=== PATIENT | male | born 1965 | race Caucasian/White ===

== ENCOUNTER 2017-01-18 04:38 | Observation (INO) ==
[2017-01-18] MEDS ORDERED: 0.9 % Sodium Chloride 1,000 ML IVC ONE (04:53)
--- NOTE | 2017-01-18 04:58 | Emergency Department Note ---
Disposition Clinical Impression: Acute electrocardiogram changes, Hyperglycemia Episode of syncope Qualifiers: Syncope type: unspecified Qualified Code(s): R55 - Syncope and collapse Disposition: Admitted As Inpatient Condition: Good Referrals: Eric Castillo MD [Primary Care Provider] - Forms: ED Satisfaction Letter Syncope HPI - General Chief Complaint: ED Syncope Stated Complaint: syncope Time Seen by Provider: 01/18/17 04:42 Source: patient, EMS Mode of arrival: EMS Limitations: no limitations Nursing Notes Reviewed: Yes Vital Signs Reviewed: Yes - History of Present Illness HPI Narrative: 51-year-old male history of diabetes, hypertension, prior history of syncopal episodes who presents to the ER via EMS due to syncopal episode. Patient states around 3:30 this morning he got up to go to the kitchen to get something to drink. He states he has been vomiting for several days. He states that he was walking to the kitchen that he just blacked out and woke up on the floor. He denies any prodromal symptoms. Patient woke up and called EMS. Currently complaining of pain at the base of his skull and upper neck. No chest pain or shortness of breath. States he has had workups in the past from cardiology and neurology. No antiplatelet or anticoagulation medications. No other concerns. 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 Duration: other Prodromal Symptoms: none Witnessed: no Context: during exertion Injuries Sustained Associated with Event: neck Current Symptoms: other History: previous syncopal episode Treatments prior to arrival: none Associated trauma secondary to event: No - Related Data Home Medications Medication Instructions Recorded Confirmed Atorvastatin Calcium [Lipitor] 80 mg PO DAILY 12/18/15 03/29/16 FLUoxetine HCl [Prozac] 80 mg PO QAM 12/18/15 03/29/16 Famotidine [Pepcid] 40 mg PO HS 12/18/15 03/29/16 Ferrous Sulfate 325 mg PO BIDWM 12/18/15 03/29/16 Gabapentin [Neurontin] 200 mg PO BID 12/18/15 03/29/16 Imipramine HCl [Tofranil] 50 mg PO HS 12/18/15 03/29/16 Insulin ASPART [Novolog Flexpen] 0 unit SQ ACHS 12/18/15 03/29/16 LORazepam [Ativan] 0.5 mg PO HS 12/18/15 03/29/16 Linaclotide [Linzess] 290 mcg PO DAILY PRN 12/18/15 03/29/16 Liraglutide [Victoza 2-Norman] 0 mg SQ QAM 12/18/15 03/29/16 Lisinopril [Zestril] 20 mg PO BID 12/18/15 03/29/16 Meclizine HCl [Verticalm] 25 mg PO DAILY 12/18/15 03/29/16 Metformin HCl [Glucophage] 1,000 mg PO QPM 12/18/15 03/29/16 Metoprolol [Lopressor] 12.5 mg PO BID 12/18/15 03/29/16 Nitroglycerin [Nitrostat] 0.4 mg SL AD PRN 12/18/15 03/29/16 [place]-3 Acid Ethyl Esters [Lovaza] 1 gm PO BID 12/18/15 03/29/16 Onabotulinumtoxina [Botox] 200 unit IM [id number] 12/18/15 03/29/16 Pantoprazole Sodium [Protonix] 40 mg PO BID 12/18/15 03/29/16 Potassium Chloride [K-Tab ER] 10 meq PO DAILY 12/18/15 03/29/16 Primidone [Mysoline] 50 mg PO HS 12/18/15 03/29/16 SUMAtriptan Succinate [Imitrex] 100 mg PO AD PRN 12/18/15 03/29/16 Sitagliptin Phos/Metformin HCl 1 each PO DAILY 12/18/15 03/29/16 [Janumet Xr 100-1,000 mg Tablet] Tamsulosin [Flomax] 0.4 mg PO HS 12/18/15 03/29/16 Topiramate [Topamax] 300 mg PO BID 12/18/15 03/29/16 Ziprasidone HCl [Geodon] 120 mg PO HS 12/18/15 03/29/16 amLODIPine [Norvasc] 5 mg PO DAILY 12/18/15 03/29/16 cloNIDine HCl [CloNIDine HCl] 0.1 mg PO HS 12/18/15 03/29/16 Carbidopa/Levodopa 25 [Sinemet 1 each PO BID 12/19/15 03/29/16 25] Divalproex (12 HR) [Depakote (12 1,000 mg PO BID 12/19/15 03/29/16 HR)] Fenofibrate [Lofibra] 160 mg PO DAILY 12/19/15 03/29/16 Allergies Allergy/AdvReac Type Severity Reaction Status Date / Time acetaminophen [From Percocet] AdvReac See Verified 01/14/17 09:05 Comments Influenza Virus Vaccines AdvReac Hives Verified 01/14/17 09:05 Oxycodone [From Percocet] AdvReac See Verified 01/14/17 09:05 Comments Pneumococcal Vaccine AdvReac Hives Verified 01/14/17 09:05 Zolpidem [From Ambien] AdvReac See Verified 01/14/17 09:05 Comments All systems ED: reviewed and negative except as stated. Constitutional: Denies: fever Cardiovascular: Denies: chest pain Respiratory: Denies: dyspnea Gastrointestinal: Denies: abdominal pain Musculoskeletal: Reports: neck pain Neurological: Denies: headache, numbness, paresthesias Past Medical History - Past Medical History Attestation: Yes The following information was validated with the patient. Source: patient Medical history: Reports: arthritis, asthma, diabetes, GERD, hyperlipidemia, hypertension, renal disease, seizures, thyroid disease, other Surgical history: Reports: orthopedic, other, other Psychiatric history: Reports: depression - Social History Smoking Status: Former smoker Smokeless Tobacco Status: No Alcohol use: Reports: none Drug use: Reports: none Physical Exam - General Limitations: no limitations General appearance: alert, in no apparent distress - Head Head exam: atraumatic, normocephalic, normal inspection - Eye Eye exam: Present: normal appearance, PERRL, EOMI - ENT ENT exam: normal exam, normal oropharynx - Neck Neck exam: Present: normal inspection, tenderness (Patient has tenderness to palpation of the upper cervical spine over the spinous processes. Patient is currently in C-spine immobilization. ) - Chest Chest inspection: Present: normal inspection, symmetric chest wall rise - Respiratory Respiratory exam: Present: normal lung sounds bilaterally - Cardiovascular Cardiovascular exam: Present: regular rate, normal rhythm, normal heart sounds - Abdominal Exam Abdominal exam: Present: soft, Non-Tender. Absent: tenderness - Extremities Exam Extremities exam: Present: normal inspection, full ROM - Expanded Upper Extremity Exam Shoulder exam: Present: normal inspection, full ROM Arm exam: Present: normal inspection, full ROM Elbow exam: Present: normal inspection, full ROM Forearm/Wrist exam: Present: normal inspection, full ROM Hand exam: Present: normal inspection, full ROM Vascular exam: Normal: radial pulse - Expanded Lower Extremity Exam Hip/Pelvis exam: Present: normal inspection, full ROM Upper leg exam: Present: normal inspection, full ROM Knee exam: Present: normal inspection, full ROM Lower leg exam: Present: normal inspection, full ROM Ankle exam: Present: normal inspection, full ROM Foot/toe exam: Present: normal inspection, full ROM Neurovascular/Tendon exam: Absent: motor deficit, sensory deficit - Neurological Exam Neurological exam: Present: alert, CN II-XII intact. Absent: motor sensory deficit - Expanded Neurological Exam Speech: Present: fluid speech Cranial nerves: EOM function (II, III, IV, ): Normal, facial sensation (V): Normal, spinal accessory function (XI): Normal, tongue deviation (XII): Normal Motor strength - LUE: 5/5 Motor strength - RUE: 5/5 Motor strength - LLE: 5/5 Motor strength - RLE: 5/5 Sensory exam upper extremity: light touch: Normal Sensory exam lower extremity: light touch: Normal Coma Scale Eye Opening: Spontaneous Coma Scale Motor Response: Obeys Commands Coma Scale Verbal Response: Oriented Coma Scale Total: 15 - Psychiatric Psychiatric exam: Present: normal affect, normal mood - Skin Skin exam: Present: warm, dry, intact, normal color Course Course Narrative: Patient seen and examined. Placed in C-spine immobilization. His EKG demonstrates T-wave inversions that are new from his prior EKG. We will obtain a chest x-ray as well as CT scan of the head and cervical spine was labs including troponin. Patient will require admission for syncopal episode in the setting of EKG findings. - Reevaluation(s) Reevaluation #1: Discussed results of imaging labwork with the patient. I discussed the EKG findings with him. We will admit him to the hospitalist service for evaluation. Vital Signs Temperature 97.6 F 01/18/17 04:40 Pulse Rate 90 01/18/17 04:40 Respiratory Rate 18 01/18/17 04:40 Blood Pressure 101/71 01/18/17 04:40 O2 Sat by Pulse Oximetry 99 01/18/17 04:40 Temperature 97.6 F 01/18/17 04:40 Pulse Rate 90 01/18/17 04:40 Respiratory Rate 18 01/18/17 04:40 Blood Pressure 101/71 01/18/17 04:40 O2 Sat by Pulse Oximetry 100 01/18/17 04:47 Oxygen Delivery Oxygen Delivery Room Air Syncope - MDM Narrative Medical decision making narrative: 51-year-old male presents to the ER due to syncopal episode. Happened around 3: 30 this morning. Reports that he just "blacked out" while walking to the kitchen. Prior history of syncopal episodes without etiology. Complaining of neck pain here. His EKG does demonstrate new findings from his prior 3 days ago. First troponin negative. C-spine is cleared. Patient admitted to the hospital service for syncope and EKG changes. - Lab Data Lab results reviewed: Yes I reviewed the patient's lab results. Result diagrams: 01/18/17 05:00 01/18/17 05:00 Lab Results 01/18/17 01/18/17 01/18/17 Range/Units 05:00 05:00 05:00 WBC 3.7 L (4.3-11.1) K/mcL RBC 4.72 (4.19-5.50) M/mcL Hgb 12.4 L (12.9-16.9) g/dL Hct 38.6 (37.5-50.1) % MCV 81.8 L (83.0-100.0) fL MCH 26.3 L (28.0-33.3) pg MCHC 32.1 (31.6-35.5) g/dL RDW 13.5 (11.5-14.5) % Plt Count 238 (140-400) K/mcL MPV 10.8 (9.4-12.4) fL Immature Gran % 0.5 (0-4) % Seg Neutrophils % 46.3 % Lymphocytes % 42.0 % Monocytes % 7.5 % Eosinophils % 3.2 % Basophils % 0.5 % Neutrophils # 1.7 (1.6-8.9) K/mcL Lymphocytes # 1.6 (0.6-4.6) K/mcL Monocytes # 0.3 (0.0-1.3) K/mcL Eosinophils # 0.1 (0.0-0.6) K/mcL Basophils # 0.0 (0.0-0.2) K/mcL PT 9.8 (9.4-12.1) Seconds INR 0.9 APTT 28.7 (26.0-36.0) Seconds Sodium (136-145) mEq/L Potassium (3.5-4.5) mEq/L Chloride (98-109) mEq/L Carbon Dioxide (19-29) mEq/L BUN (8-26) mg/dL Creatinine (0.72-1.25) mg/dL Est GFR ( Amer) (> 60) Est GFR (Non-Af Amer) (> 60) BUN/Creatinine Ratio (6-26) Glucose (70-99) mg/dL POC Glucose (58-89) Calculated Osmolality (280-300) Calcium (8.6-10.8) mg/dL Total Bilirubin (0.2-1.2) mg/dL Direct Bilirubin (0.0-0.5) mg/dL Indirect Bilirubin (0.0-1.2) mg/dL AST (5-34) Units/L ALT (0-55) Units/L Alkaline Phosphatase (38-126) Units/L Troponin I 0.02 (0-0.03) ng/mL Serum Total Protein (6.0-8.3) g/dL Albumin (3.5-5.0) g/dL Globulin (2.4-3.5) g/dL Albumin/Globulin Ratio (1.1-2.2) Lipase (8-78) Units/L 01/18/17 01/18/17 Range/Units 05:00 05:00 WBC (4.3-11.1) K/mcL RBC (4.19-5.50) M/mcL Hgb (12.9-16.9) g/dL Hct (37.5-50.1) % MCV (83.0-100.0) fL MCH (28.0-33.3) pg MCHC (31.6-35.5) g/dL RDW (11.5-14.5) % Plt Count (140-400) K/mcL MPV (9.4-12.4) fL Immature Gran % (0-4) % Seg Neutrophils % % Lymphocytes % % Monocytes % % Eosinophils % % Basophils % % Neutrophils # (1.6-8.9) K/mcL Lymphocytes # (0.6-4.6) K/mcL Monocytes # (0.0-1.3) K/mcL Eosinophils # (0.0-0.6) K/mcL Basophils # (0.0-0.2) K/mcL PT (9.4-12.1) Seconds INR APTT (26.0-36.0) Seconds Sodium 132 L (136-145) mEq/L Potassium 4.0 (3.5-4.5) mEq/L Chloride 98 (98-109) mEq/L Carbon Dioxide 20 (19-29) mEq/L BUN 16 (8-26) mg/dL Creatinine 1.45 H (0.72-1.25) mg/dL Est GFR ( Amer) > 60 (> 60) Est GFR (Non-Af Amer) 52 L (> 60) BUN/Creatinine Ratio 11 (6-26) Glucose 403 H (70-99) mg/dL POC Glucose 397 H (58-89) Calculated Osmolality 292 (280-300) Calcium 9.8 (8.6-10.8) mg/dL Total Bilirubin 0.3 (0.2-1.2) mg/dL Direct Bilirubin 0.1 (0.0-0.5) mg/dL Indirect Bilirubin 0.2 (0.0-1.2) mg/dL AST 7 (5-34) Units/L ALT 12 (0-55) Units/L Alkaline Phosphatase 104 (38-126) Units/L Troponin I (0-0.03) ng/mL Serum Total Protein 7.4 (6.0-8.3) g/dL Albumin 3.7 (3.5-5.0) g/dL Globulin 3.7 H (2.4-3.5) g/dL Albumin/Globulin Ratio 1.0 L (1.1-2.2) Lipase 53 (8-78) Units/L - Radiology Data Radiology results reviewed: Yes I reviewed the patient's radiology results. Chest X-Ray 01/18/17 04:53 IMPRESSION: Stable negative chest. D/ / Elsie Desir MD / Elsie Desir MD Interpreting Provider: Elsie Desir MD Head CT 01/18/17 04:53 IMPRESSION: Stable negative CT brain with no acute intracranial abnormality. D/ / Elsie Desir MD / Elsie Desir MD Interpreting Provider: Elsie Desir MD - EKG Data EKG attestation: Yes I reviewed and interpreted this EKG. EKG results narrative: EKG demonstrates sinus rhythm with a rate of 93 bpm. Normal axis. Normal intervals. Normal R-wave progression. There are T-wave inversions in the lateral leads V3 through V5 that appear new from his prior EKG. No gross ST elevations or depressions. Changes from previous EKG include T-wave inversions compared to 01/14/17. S.B.Elvia - S.Carina Situation: Demographics, MOA Background: Presenting Complaint, Relevant PMH, Meds, & Allergies Assessment: Vital Signs, Course and respsone to treatment, Exam Concerns, Patient/Family Expectation, Pertinant Lab Results, Outstanding Labs Recommendation: Barrier(s) to disposition, Recommendation based on pending studies, treatments, or consults S.B.A.RHarpreet Report Given to: Angélica Cunha Repor Time: 06:10 Attestation Statement - Attestation Attestation: I examined this patient and my medical decision-making was reviewed with the Resident Physician. I agree with the documented findings, disposition and treatment plan as described except to the extent set forth below. A 51-year- old male with concern for syncope. EKG has ischemic changes. Possible cardiac in etiology. We will admit for further evaluation.
[2017-01-18 05:10] LABS: Basophils % 0.5 %; Eosinophils # 0.1 K/mcL (0.0-0.6); Eosinophils % 3.2 %; Hematocrit 38.6 % (37.5-50.1); Hemoglobin 12.4 g/dL (12.9-16.9); Immature Granulocytes % 0.5 % (0-4); Lymphocytes # 1.6 K/mcL (0.6-4.6); Mean Corpuscular HGB Conc 32.1 g/dL (31.6-35.5); Mean Corpuscular Hemoglobin 26.3 pg (28.0-33.3); Mean Corpuscular Volume 81.8 fL (83.0-100.0); Mean Platelet Volume 10.8 fL (9.4-12.4); Monocytes # 0.3 K/mcL (0.0-1.3); Monocytes % 7.5 %; Neutrophils # 1.7 K/mcL (1.6-8.9); Platelet Count 238 K/mcL (140-400); Red Blood Count 4.72 M/mcL (4.19-5.50); Red Cell Distribution Width 13.5 % (11.5-14.5); Segmented Neutrophils % 46.3 %
[2017-01-18 05:15] LABS: INR 0.9; Prothrombin Time 9.8 Seconds (9.4-12.1)
[2017-01-18 05:18] LABS: Activated Partial Thrombo Time 28.7 Seconds (26.0-36.0)
[2017-01-18 05:24] LABS: Alanine Aminotransferase 12 Units/L (0-55); Albumin 3.7 g/dL (3.5-5.0); Alkaline Phosphatase 104 Units/L (38-126); Aspartate Amino Transferase 7 Units/L (5-34); BUN/Creatinine Ratio 11 (6-26); Bilirubin,Direct 0.1 mg/dL (0.0-0.5); Bilirubin,Indirect 0.2 mg/dL (0.0-1.2); Bilirubin,Total 0.3 mg/dL (0.2-1.2); Blood Urea Nitrogen 16 mg/dL (8-26); Calcium 9.8 mg/dL (8.6-10.8); Carbon Dioxide 20 mEq/L (19-29); Chloride 98 mEq/L (98-109); Globulin 3.7 g/dL (2.4-3.5); Glucose 403 mg/dL (70-99); Lipase 53 Units/L (8-78); Osmolality,Calculated 292 (280-300); Sodium 132 mEq/L (136-145); Total Protein 7.4 g/dL (6.0-8.3); eGFR For African Americans > 60 (> 60); eGFR For Non-African Americans 52 (> 60)
[2017-01-18 07:10] LABS: VBG PH 7.34 pH Units (7.32-7.42)
[2017-01-18] MEDS ORDERED: Naloxone 0.4 MG/ML INJ IVP PRN (07:25)
[2017-01-18] MEDS ORDERED: *HR* Morphine 2 MG/ML SYRINGE IVP PRN (07:25)
[2017-01-18] MEDS ORDERED: Nitroglycerin 0.4 MG TAB.SUBL SL PRN (07:28)
[2017-01-18] MEDS ORDERED: *HR* Dextrose 50 % in Water (Syg) 50 ML SYRINGE IVP PRN (07:33)
[2017-01-18] MEDS ORDERED: Dextrose Gel 15 GM PO PRN ×2 (07:33)
[2017-01-18] MEDS ORDERED: D5% in Water 1,000 ML IVC PRN (07:33)
[2017-01-18] MEDS: Gabapentin 100 MG CAPSULE PO SCH ×2 (09:30→21:48)
[2017-01-18] MEDS: 0.9 % Sodium Chloride 1,000 ML IVC SCH (09:30)
[2017-01-18 09:47] LABS: Chol/HDL Ratio 6.2 (0-4.9); Magnesium 1.4 mg/dL (1.6-2.6)
[2017-01-18] MEDS: Fenofibrate 54 MG TABLET PO SCH (10:03)
[2017-01-18] MEDS: Lisinopril 20 MG TABLET PO SCH ×2 (10:03→21:48)
[2017-01-18] MEDS: Carbidopa/Levodopa 25/100 TABLET PO SCH ×2 (10:03→21:47)
[2017-01-18] MEDS: amLODIPine 5 MG TABLET PO SCH (10:03)
[2017-01-18] MEDS: Divalproex (12 HR) 500 MG TABLET PO SCH ×2 (10:04→21:47)
[2017-01-18] MEDS: FLUoxetine 20 MG CAPSULE PO SCH (10:07)
[2017-01-18] MEDS: Omega-3 Acid Ethyl Esters [Lovaza] 1 GM PO SCH ×2 (10:07→22:04)
--- NOTE | 2017-01-18 10:29 | Internal Med History&Physical ---
Date of Encounter: 01/18/17 Time of Encounter: 08:30 Assessment and Plan (1) Syncope Current visit: Yes Status: Acute Acute on chronic syncopal episode - unclear etiology, possibly cardiac arrhythmia Continue Aspirin, Statin Troponin - negative, cycle troponin EKG - sinus rhythm with no acute ST-T changes BNP - 14 CXR - stable negative chest CT Head - stable negative CT brain with no acute intracranial abnormality CT C-spine - stable, with no acute abnormality and minimal degenerative changes Echocardiogram - pending Carotid Doppler - pending Cardiac telemetry, labs in a.m., monitor closely Qualifiers: Syncope type: unspecified Qualified Code(s): R55 - Syncope and collapse (2) DM type 2 (diabetes mellitus, type 2) Current visit: Yes Status: Chronic Diabetes mellitus type 2, insulin-dependent, hyperglycemia Continue Lantus, insulin sliding scale, glucose checks Qualifiers: Diabetes mellitus complication status: with unspecified complications Diabetes mellitus detention insulin use: with oysterman use Qualified Code(s) : E11.8 - Type 2 diabetes mellitus with unspecified complications; Z79.4 - jail (current) use of insulin (3) CKD (chronic kidney disease), stage III Current visit: Yes Status: Chronic Chronic kidney disease stage III, stable - creatinine and GFR at baseline (4) Obesity (BMI 30-39.9) Current visit: No Status: Chronic BMI 34.0 (5) Hypertension Current visit: Yes Status: Chronic Essential hypertension, controlled, monitor Continue home dose of amlodipine and lisinopril Qualifiers: Hypertension type: essential hypertension Qualified Code(s): I10 - Essential (primary) hypertension (6) Seizure disorder Current visit: Yes Status: Chronic Chronic seizure disorder - stable Continue home dose of Depakote and Topamax (7) DVT prophylaxis Current visit: Yes Status: Acute Continue heparin subcutaneous Internal Medicine - H&P: HPI Chief complaint: Syncope Admitted From: Emergency Dept Plans for Post Hospital Care: Home History of present illness: Mr. Rodriguez is a 51 year old male with past medical history of arthritis, diabetes , GERD, hyperlipidemia, hypertension, chronic kidney disease, seizure disorder, thyroid disease and depression. He presents to the ED for a syncopal episode. Examined in the ED. Patient is awake and alert. Not in any distress. Able to provide all history. No family members at bedside. Patient states around 3:30 AM morning he got up to go to the kitchen. While he was walking he passed out and states he woke up laying on the floor. Patient denies chest pain or shortness of breath. He denies having any lightheadedness or dizziness at the time. He apparently woke up and called EMS. Currently he denies any symptoms. He denies palpitations or dizziness or cough or fever. Patient states he does have recurrent syncopal episodes. He had 2 episodes of near-syncope about 4 days ago, and he says he did not lose consciousness at the time but felt lightheaded. Patient states syncopal episodes are quite common for him, and states he has several each year. No aggravating or alleviating factors. Patient did have loss of consciousness this morning and states he was not confused. He says he was passed out for maybe a few minutes. He has had extensive workup for syncopal episodes in the past. No other associated symptoms. No other complaints. Initial workup in the ED is negative except for hyperglycemia. Patient is being admitted for further evaluation of syncope. CODE STATUS full code. Past Med Surg Social Fam HX - Past Medical History Medical history: arthritis, asthma, diabetes, GERD, hyperlipidemia, hypertension , renal disease, seizures, thyroid disease, other Psychiatric history: depression - Past Surgical History Surgical History: orthopedic, other, other - Social History Smoking Status: Former smoker Smokeless Tobacco Status: No Alcohol use: none Drug use: none - Family History Father Living Status: Still Living Hx Family Cardiac Disorders: Yes (bypass, pacer, stents) Hx Family Endocrine Disorder: Yes (dm) Internal Medicine - H&P: Meds Atorvastatin Calcium [Lipitor] 80 mg PO DAILY 12/18/15 [History] FLUoxetine HCl [Prozac] 80 mg PO QAM 12/18/15 [History] Famotidine [Pepcid] 40 mg PO HS 12/18/15 [History] Gabapentin [Neurontin] 200 mg PO BID 12/18/15 [History] Imipramine HCl [Tofranil] 50 mg PO HS 12/18/15 [History] LORazepam [Ativan] 0.5 mg PO HS 12/18/15 [History] Liraglutide [Victoza 2-Norman] 1.2 mg SQ QAM 12/18/15 [History] Lisinopril [Zestril] 20 mg PO BID 12/18/15 [History] Meclizine HCl [Verticalm] 25 mg PO DAILY 12/18/15 [History] Metformin HCl [Glucophage] 1,000 mg PO QPM 12/18/15 [History] Nitroglycerin [Nitrostat] 0.4 mg SL AD PRN 12/18/15 [History] [place]-3 Acid Ethyl Esters [Lovaza] 1 gm PO BID 12/18/15 [History] Onabotulinumtoxina [Botox] 200 unit IM [id number] 12/18/15 [History] Pantoprazole Sodium [Protonix] 40 mg PO BID 12/18/15 [History] Primidone [Mysoline] 50 mg PO HS 12/18/15 [History] SUMAtriptan Succinate [Imitrex] 100 mg PO AD PRN 12/18/15 [History] Tamsulosin [Flomax] 0.4 mg PO HS 12/18/15 [History] Topiramate [Topamax] 150 mg PO BID 12/18/15 [History] Ziprasidone HCl [Geodon] 120 mg PO HS 12/18/15 [History] amLODIPine [Norvasc] 5 mg PO DAILY 12/18/15 [History] Carbidopa/Levodopa 25/100 [Sinemet 25/100] 1 each PO BID 12/19/15 [History] Divalproex (12 HR) [Depakote (12 HR)] 1,000 mg PO BID 12/19/15 [History] Fenofibrate [Lofibra] 160 mg PO DAILY 12/19/15 [History] Amitriptyline [Elavil] 20 mg PO HS 01/18/17 [History] Butalbital/Aspirin/Caffeine [Fiorinal 50-325-40 mg Capsule] 1 cap PO QID PRN [History] Dexlansoprazole [Dexilant] 60 mg PO DAILY 01/18/17 [History] Insulin ASPART [NovoLOG] 0 unit SQ TID PRN 01/18/17 [History] Insulin Glargine [Lantus] 10 unit SQ HS 01/18/17 [History] Oxaprozin [Daypro] 600 mg PO BID 01/18/17 [History] Promethazine [Phenergan] 25 mg PO Q8HR PRN 01/18/17 [History] 3 Allergy/AdvReac Type Severity Reaction Status Date / Time acetaminophen [From Percocet] AdvReac See Verified 01/14/17 09:05 Comments Influenza Virus Vaccines AdvReac Hives Verified 01/14/17 09:05 Oxycodone [From Percocet] AdvReac See Verified 01/14/17 09:05 Comments Pneumococcal Vaccine AdvReac Hives Verified 01/14/17 09:05 Zolpidem [From Ambien] AdvReac See Verified 01/14/17 09:05 Comments All Systems PM: A 10-system review of systems was performed and is negative for pertinent findings except as documented above in the HPI. - Constitutional Constitutional: no fatigue, no fever(s), no weakness - EENT Eyes: no blurry vision - Cardiovascular Cardiovascular ROS IM: lightheadedness, syncope, no chest pain, no claudication , no diaphoresis, no dyspnea, no dyspnea on exertion, no edema, no orthopnea, no palpitations - Respiratory Respiratory: no cough, no dyspnea, no hemoptysis, no dyspnea on exertion, no wheezing, no chest congestion - Gastrointestinal Gastrointestinal: no abdominal pain, no bloating, no cramping, no diarrhea, no hematemesis, no hematochezia, no melena, no nausea, no vomiting - Genitourinary Genitourinary ROS male: no dysuria - Neurological Neurological ROS: no abnormal gait, no confusion, no convulsions, no dizziness, no focal weakness, no loss of vision, no numbness, no tingling - Constitutional Vitals: Temp Pulse Resp BP Pulse Ox 97.5 F L 77 16 126/74 99 01/18/17 08:23 01/18/17 08:23 01/18/17 09:04 01/18/17 09:04 01/18/17 08:23 General appearance: Present: cooperative, A&O X 3, pleasant, no acute distress, obese, answers questions appropriately - Head Head exam: Present: atraumatic - Eye Eye exam: Present: EOMI - ENT ENT exam: Present: mucous membranes moist - Respiratory Respiratory exam: Present: CTAB. Absent: accessory muscle use, chest wall tenderness, rhonchi, wheezes, tachypnea - Cardiovascular Cardiovascular exam: Present: RRR, +S1, +S2. Absent: systolic murmur - GI/Abdominal GI/Abdominal exam: Present: soft (Obese). Absent: distended, firm, guarding, tenderness - Extremities Exam Extremities exam: Present: radial pulses palpable and symmetrical. Absent: calf tenderness, cyanotic, pedal edema - Neurological Exam Neurological exam: Present: alert, CN II-XII intact, oriented X3, no focal deficits. Absent: pronater drift, facial droop, speech deficit Internal Med - H&P Results - Labs CBC & Chem 7: 01/18/17 05:00 01/18/17 05:00 Labs: Cardiac Enzymes 01/18/17 Range/Units 09:05 Troponin I 0.00 (0-0.03) ng/mL - ABG Interpretation ABG results: 01/18/17 07:02 VBG pH 7.34 VBG pCO2 40 L VBG pO2 110 H VBG HCO3 22
[2017-01-18 10:38] LABS: Hemoglobin A1C 9.4 %
[2017-01-18] MEDS: Insulin LISPRO 300 UNITS/3 ML VIAL SQ SCH ×3 (12:21→21:53)
[2017-01-18] MEDS: Aspirin 81 MG TAB.CHEW PO SCH (12:56)
[2017-01-18] MEDS: Topiramate 100 MG TABLET PO SCH ×2 (12:56→21:47)
[2017-01-18] MEDS: *HR* Heparin 5,000 UNIT/ML VIAL SQ SCH (17:37)
--- NOTE | 2017-01-18 20:26 | Electrocardiograph Report ---
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
[2017-01-18] MEDS ORDERED: ZIPRASIDONE HCL PO SCH (21:00)
[2017-01-18] MEDS ORDERED: cloNIDine HCl 0.1 MG TABLET PO SCH (21:00)
[2017-01-18] MEDS: Primidone 50 MG TABLET PO SCH (21:47)
[2017-01-18] MEDS: Insulin DETEMIR 100 UNIT/ML X5UNITS SQ SCH (22:00)
[2017-01-19 04:25] LABS: Basophils % 0.6 %; Eosinophils # 0.1 K/mcL (0.0-0.6); Eosinophils % 3.7 %; Hematocrit 35.2 % (37.5-50.1); Hemoglobin 11.4 g/dL (12.9-16.9); Immature Granulocytes % 0.6 % (0-4); Lymphocytes # 1.3 K/mcL (0.6-4.6); Lymphocytes % 40.4 %; Mean Corpuscular HGB Conc 32.4 g/dL (31.6-35.5); Mean Corpuscular Hemoglobin 26.4 pg (28.0-33.3); Mean Corpuscular Volume 81.5 fL (83.0-100.0); Mean Platelet Volume 10.8 fL (9.4-12.4); Monocytes # 0.2 K/mcL (0.0-1.3); Monocytes % 6.8 %; Neutrophils # 1.6 K/mcL (1.6-8.9); Platelet Count 221 K/mcL (140-400); Red Blood Count 4.32 M/mcL (4.19-5.50); Red Cell Distribution Width 13.6 % (11.5-14.5); Segmented Neutrophils % 47.9 %
[2017-01-19 04:40] LABS: BUN/Creatinine Ratio 12 (6-26); Blood Urea Nitrogen 13 mg/dL (8-26); Calcium 8.7 mg/dL (8.6-10.8); Carbon Dioxide 22 mEq/L (19-29); Chloride 104 mEq/L (98-109); Glucose 200 mg/dL (70-99); Osmolality,Calculated 288 (280-300); Potassium 4.3 mEq/L (3.5-4.5); Sodium 136 mEq/L (136-145); eGFR For African Americans > 60 (> 60); eGFR For Non-African Americans > 60 (> 60)
[2017-01-19] MEDS: *HR* Heparin 5,000 UNIT/ML VIAL SQ SCH ×2 (05:39→17:35)
[2017-01-19] MEDS: 0.9 % Sodium Chloride 1,000 ML IVC SCH (06:14)
[2017-01-19] MEDS: FLUoxetine 20 MG CAPSULE PO SCH (08:03)
[2017-01-19] MEDS: Aspirin 81 MG TAB.CHEW PO SCH (08:03)
[2017-01-19] MEDS: Divalproex (12 HR) 500 MG TABLET PO SCH ×2 (08:03→20:48)
[2017-01-19] MEDS: Fenofibrate 54 MG TABLET PO SCH (08:04)
[2017-01-19] MEDS: amLODIPine 5 MG TABLET PO SCH (08:04)
[2017-01-19] MEDS: Gabapentin 100 MG CAPSULE PO SCH ×2 (08:04→20:50)
[2017-01-19] MEDS: Topiramate 100 MG TABLET PO SCH ×2 (08:04→20:49)
[2017-01-19] MEDS: Carbidopa/Levodopa 25/100 TABLET PO SCH ×2 (08:04→20:49)
[2017-01-19] MEDS: Lisinopril 20 MG TABLET PO SCH (08:04)
[2017-01-19] MEDS: Insulin LISPRO 300 UNITS/3 ML VIAL SQ SCH ×4 (08:05→20:50)
--- NOTE | 2017-01-19 12:08 | Internal Med Progress Note ---
Date of Encounter: 01/19/17 Time of Encounter: 08:40 - Assessment and plan (1) Syncope Current Visit: Yes Status: Acute Assessment and plan: Acute on chronic. Pt has a long history of syncope over the last 5-6 years. Episodes with varying frequency and no predictability or warning. He states that prior to episodes over the last few days, he had not lost consciousness. He has a vagal nerve stimulator and is unable to have an MRI of brain for further evaluation. EKG NSR with no acute ST changes. CXR negative for acute process. CT head is negative and stable. Labs are WNL and stable. Echo results are still lpending at this time. 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 Carotids are normal bilaterally. Pt sees neurology at [facility] for seizure disorder and last saw her " a couple of months ago." Qualifiers: Syncope type: unspecified Qualified Code(s): R55 - Syncope and collapse (2) NAKIA (obstructive sleep apnea) Current Visit: Yes Status: Acute Assessment and plan: Pt diagnosed by Dr. Malone. STates that he does not wear his Bipap due to "I can 't stand it." (3) Obesity (BMI 30-39.9) Current Visit: Yes Status: Chronic Assessment and plan: Chronic. continue lifestyle modifications. (4) DM type 2 (diabetes mellitus, type 2) Current Visit: Yes Status: Chronic Assessment and plan: A1c 9.4. Uncontrolled. Continue SSI, diabetic diet, and accuchecks achs. Qualifiers: Diabetes mellitus complication status: with unspecified complications Diabetes mellitus moth exterminator insulin use: with intermediate use Qualified Code(s) : E11.8 - Type 2 diabetes mellitus with unspecified complications; Z79.4 - director long term care (current) use of insulin (5) CKD (chronic kidney disease), stage III Current Visit: Yes Status: Chronic Assessment and plan: Labs improved since yesterday, Sr Cr 1.13, GFR >60 Monitor labs and avoid nephrotoxins. (6) Hypertension Current Visit: Yes Status: Chronic Assessment and plan: Well controlled. Continue home medications and monitor BP Qualifiers: Hypertension type: essential hypertension Qualified Code(s): I10 - Essential (primary) hypertension (7) Seizure disorder Current Visit: Yes Status: Chronic Assessment and plan: Chronic. Pt sees neurology at Dr. Rupinder Valdes. Continue home doses of Depakote and Topamax. (8) Status post VNS (vagus nerve stimulator) placement Current Visit: Yes Status: Acute Assessment and plan: Pt with VNS placed in 2010. First syncopal episode in 2011. Device could be causing bradycardia that could be causing syncope. He denies symptoms of SOB, chest pain, dizziness, lightheadedness prior to episodes and denies postictal phase after. Placed due to seizure disorder and has controlled seizure symptoms in conjunction with medication. (9) DVT prophylaxis Current Visit: Yes Status: Acute Assessment and plan: Heparin SQ - Time Spent With Patient less than 15 minutes - Subjective Interval history: Pt was seen and assessed at 0840 this a.m. He states that he his not having pain and has had no symptoms since arrival. He has lengthy history, 5-6 years, of syncope. He denies any warning or aura and states that until the last 3 episodse over the last 4 days, he had not lost consciousness. he denies chest pain or sob prior to events and states that he normally feels fine after, denies postictal phase. He has a vagal nerve stimulator and can not have MRI. He has been worked up for this in the past, including an event monitor that was negative. He sees a neurologist in [place] at [facility], states that he saw her " a couple of months ago." He states that the VNS was placed in 2010 and his first syncopal episode was in 2011. Pt states that his neurologist checks the VNS every time he is at the office. - Constitutional Vitals: Temp Pulse Resp BP Pulse Ox 97.6 F 88 15 117/80 97 01/19/17 10:59 01/19/17 10:59 01/19/17 10:59 01/19/17 10:59 01/19/17 10:59 General appearance: Present: cooperative, A&O X 3, pleasant, no acute distress, obese, answers questions appropriately - Head Head exam: Present: atraumatic, normal inspection, normocephalic - Eye Eye exam: Present: EOMI, normal appearance, conjuntiva pink, sclera anicteric - Neck Neck exam general surgery: Present: supple, trachea midline. Absent: lymphadenopathy, tenderness - Respiratory Respiratory exam: Present: CTAB. Absent: accessory muscle use, chest wall tenderness, rales, rhonchi, wheezes - Cardiovascular Cardiovascular exam: Present: RRR, +S1, +S2. Absent: diastolic murmur, gallop, rubs, systolic murmur - GI/Abdominal GI/Abdominal exam: Present: normal bowel sounds, soft, no peritoneal signs. Absent: distended, hepatomegaly, tenderness - Extremities Exam Extremities exam: Present: normal capillary refill, normal inspection, warm, radial pulses palpable and symmetrical. Absent: calf tenderness, cyanotic, pedal edema, tenderness - Neurological Exam Neurological exam: Present: alert, oriented X3, no focal deficits. Absent: altered, motor sensory deficit, facial droop, speech deficit - Skin Skin exam: Present: dry, intact, normal color, warm. Absent: rash Internal Medicine: Result - Labs CBC & Chem 7: 01/19/17 03:58 01/19/17 03:58 Labs: Short CBC 01/19/17 Range/Units 03:58 WBC 3.2 L (4.3-11.1) K/mcL Hgb 11.4 L (12.9-16.9) g/dL Hct 35.2 L (37.5-50.1) % Plt Count 221 (140-400) K/mcL Neutrophils # 1.6 (1.6-8.9) K/mcL BMP 01/19/17 03:58 Sodium 136 Potassium 4.3 Chloride 104 Carbon Dioxide 22 BUN 13 Creatinine 1.13 Glucose 200 H Calcium 8.7 Cardiac Enzymes 01/18/17 01/18/17 Range/Units 14:34 20:26 Troponin I 0.00 0.02 (0-0.03) ng/mL - ABG Interpretation ABG results: PT/INR, D-dimer PT 9.8 Seconds (9.4-12.1) 01/18/17 05:00 Consult Discharge Plan - Plan Referrals: Eric Castillo MD [Primary Care Provider] -
[2017-01-19] MEDS: Omega-3 Acid Ethyl Esters [Lovaza] 1 GM PO SCH ×2 (12:16→20:50)
--- NOTE | 2017-01-19 14:40 | Cardiology Consult Note ---
<Mirza Lynn R - Last Filed: 01/19/17 16:18> Date of Encounter: 01/19/17 Time of Encounter: 14:34 Assessment and Plan (1) Abnormal EKG Current Visit: Yes Status: Acute EKGs reviewed. EKG 01/18/[address] depression compared to EKG 01/14/17. Repeated EKG. If inferolateral depression is improved, but still not at prior baseline. Troponins negative x 4. Pt denies chest pain recently, but reports having had chest pain in the past. Never had LHC. Has had stress tests in the past. Risk factors for CAD include DM, HTN, HLD and premature family hx. Pt reports his father had CABG x 4 at age 50 and his grandparents on both sides had MIs. Echo EF 50-55%, mild LVDD, no significant valvular dysfunction. Recommend pharmacologic nuclear stress test tomorrow AM to rule out ischemia. (2) Syncope Current Visit: Yes Status: Acute Syncopal event Tuesday night. Pt reports walking into kitchen, waking up on the floor. Suspect orthostatic component. Check orthostatic vitals. BP has been borderline- -98/75 on presentation. Recommend decreasing Lisinopril from 20mg BID to 10mg BID. Reportedly first actual syncopal event. Reports episodes that occur 1-2 weeks once every year or so of staring and bring unable to respond, but does not lose consciousness. K stable. Mag 1.4--replace. Check TSH. Echo EF 50-55%, mild diastolic dysfunction, no significant valvular dysfunction. Tilt table at outside facility in 2013 with mild orthostatic response. Significant seizure hx, but pt reports this was unlike seizures. Has vagal nerve stimulator--follows with neurology at [facility]. Telemetry AVG HR 71--no significant pauses, arrhythmias or bradycardic events. Pt denies hx of arrhythmias but old record from [facility] in 2012 in [facility] records states pt had an episode of A-Flutter during hospitalization/ Continue to monitor. If recurrent syncope can consider event monitor vs loop recorder as outpt. Plan for stress test in AM given EKG changes as above. Qualifiers: Syncope type: unspecified Qualified Code(s): R55 - Syncope and collapse Discussion w patient/family: The assessment and plan as outlined above was discussed with the patient and/or family members who expressed understanding and agreement. All questions were answered. Thank you for involving us in the care of your patient. Please call with any questions. I will discuss all the above with Dr. Rodriguez and make changes as necessary. History of Present Illness Consult date: 01/19/17 Requesting physician: Eliane Hanks Consult reason: syncope Chief complaint: syncope History of present illness: Mr. Rodriguez is a 51 year old male with past medical history of arthritis, diabetes , GERD, hyperlipidemia, hypertension, chronic kidney disease, seizure disorder, vagal nerve stimulator, thyroid disease and depression. He presented to the ED for a syncopal episode. Pt states that every year or two he will have 1-2 weeks where he experiences a "staring sensation" where he is unable to respond, but is aware of what is going on around him. However, he has never blacked out until Tuesday night. Patient states around 3:30 AM he got up to go to the kitchen. While he was walking he passed out without warning and states he woke up laying on the floor. Patient denies chest pain or shortness of breath. He denies having any lightheadedness or dizziness at the time. He apparently woke up and called EMS. Currently he denies any symptoms. He denies palpitations. Pt reports this episode was not like a seizure. He has seizures and vagal nerve stimulator and follows at [facility]. Pt denies hx of any arrhythmias, however, on review of old records in [facility] from [facility] in 2012, it mentions pt had an episode of A-Flutter. Also reported episodes of bradycardia thought to be related to NAKIA at that time. Tile table test in 2013 showed a mild orthostatic response. Echo obtained during inpt EF 50-55%, mild LVDD. Cardiology consulted for syncope recommendations. BP 98/75 on admission. EKG reviewed--inferolateral changes noted compared to EKG on 01/14. Past Med Surg Social Fam HX - Past Medical History Medical history: arthritis, asthma, diabetes, GERD, hyperlipidemia, hypertension , renal disease, seizures, thyroid disease, other Psychiatric history: depression - Past Surgical History Surgical History: orthopedic, other, other - Social History Smoking Status: Former smoker Smokeless Tobacco Status: No Alcohol use: none Drug use: none - Family History Father Living Status: Still Living Hx Family Cardiac Disorders: Yes (bypass, pacer, stents) Hx Family Endocrine Disorder: Yes (dm) Medications and Allergies Atorvastatin Calcium [Lipitor] 80 mg PO DAILY 12/18/15 [History] FLUoxetine HCl [Prozac] 80 mg PO QAM 12/18/15 [History] Famotidine [Pepcid] 40 mg PO HS 12/18/15 [History] Gabapentin [Neurontin] 200 mg PO BID 12/18/15 [History] Imipramine HCl [Tofranil] 50 mg PO HS 12/18/15 [History] LORazepam [Ativan] 0.5 mg PO HS 12/18/15 [History] Liraglutide [Victoza 2-Norman] 1.2 mg SQ QAM 12/18/15 [History] Lisinopril [Zestril] 20 mg PO BID 12/18/15 [History] Meclizine HCl [Verticalm] 25 mg PO DAILY 12/18/15 [History] Metformin HCl [Glucophage] 1,000 mg PO QPM 12/18/15 [History] Nitroglycerin [Nitrostat] 0.4 mg SL AD PRN 12/18/15 [History] Onabotulinumtoxina [Botox] 200 unit IM [id number] 12/18/15 [History] Pantoprazole Sodium [Protonix] 40 mg PO BID 12/18/15 [History] Primidone [Mysoline] 50 mg PO HS 12/18/15 [History] SUMAtriptan Succinate [Imitrex] 100 mg PO AD PRN 12/18/15 [History] Tamsulosin [Flomax] 0.4 mg PO HS 12/18/15 [History] Topiramate [Topamax] 150 mg PO BID 12/18/15 [History] Ziprasidone HCl [Geodon] 120 mg PO HS 12/18/15 [History] amLODIPine [Norvasc] 5 mg PO DAILY 12/18/15 [History] Carbidopa/Levodopa [Sinemet ] 1 each PO BID 12/19/15 [History] Divalproex (12 HR) [Depakote (12 HR)] 1,000 mg PO BID 12/19/15 [History] Fenofibrate [Lofibra] 160 mg PO DAILY 12/19/15 [History] Amitriptyline [Elavil] 20 mg PO HS 01/18/17 [History] Butalbital/Aspirin/Caffeine [Fiorinal 50-325-40 mg Capsule] 1 cap PO QID PRN [History] Dexlansoprazole [Dexilant] 60 mg PO DAILY 01/18/17 [History] Insulin ASPART [NovoLOG] 0 unit SQ TID PRN 01/18/17 [History] Insulin Glargine [Lantus] 10 unit SQ HS 01/18/17 [History] Oxaprozin [Daypro] 600 mg PO BID 01/18/17 [History] Promethazine [Phenergan] 25 mg PO Q8HR PRN 01/18/17 [History] 3 Allergy/AdvReac Type Severity Reaction Status Date / Time acetaminophen [From Percocet] AdvReac See Verified 01/14/17 09:05 Comments Influenza Virus Vaccines AdvReac Hives Verified 01/14/17 09:05 Oxycodone [From Percocet] AdvReac See Verified 01/14/17 09:05 Comments Pneumococcal Vaccine AdvReac Hives Verified 01/14/17 09:05 Zolpidem [From Ambien] AdvReac See Verified 01/14/17 09:05 Comments All Systems Review: A 10-system review of systems was performed and is negative for pertinent findings except as documented above in the HPI. - Cardiovascular Cardiovascular: syncope - Neurological Neurological: syncope Physical Examination Vital Signs, Last 4 Hours Temp Pulse Resp BP Pulse Ox 01/19/17 10:59 97.6 F 88 15 117/80 97 Vital Signs Temp Pulse Resp BP Pulse Ox 01/19/17 10:59 97.6 F 88 15 117/80 97 01/19/17 07:31 67 17 122/86 98 01/19/17 03:16 97.4 F L 64 18 98/66 96 01/18/17 22:37 97.4 F L 67 15 107/69 94 01/18/17 19:27 97.7 F 75 15 109/76 97 Intake and Output 01/18/17 01/19/17 01/19/17 23:59 07:59 15:59 Intake Total 200 / 200 1000 / 1000 510 / 510 Output Total 420 / 420 1400 / 1400 350 / 350 Balance -220 / -220 -400 / -400 160 / 160 Intake: IV Fluids 1000 / 1000 0.9 % Sodium Chloride 1,000 ML 1000 / 1000 @ 60 mls/hr IVC .[id number] [facility] Rx #:[id number] Oral 200 / 200 510 / 510 Output: Urine 420 / 420 1400 / 1400 350 / 350 Other: Meal Breakfast Percent of Meal Consumed 100% Weight 107.955 kg Blood Glucose* 185 161 263 Patient Weight 01/19/17 23:59 Weight 107.955 kg General: Conversant, No Apparent Distress HEENT: Atraumatic, Normocephaly, Mucus Membranes Moist Neck: No JVD, Normal carotid pulses Cardiac: Reg Rate and Rhythm, Normal S1 and S2, No Murmur Lungs: Normal Breath Sounds, No Wheeze, Rales, Rhonchi Neuro: Alert and responsive, No focal deficits noted Abdomen: Soft, Non-Tender Skin: No rashes noted on visualized skin Musculoskeletal: No Chest Wall Tenderness Extremities: No Clubbing, No Cyanosis, No Edema, Normal Pulses Results 01/19/17 03:58 01/19/17 03:58 Lab Results 01/18/17 01/18/17 01/19/17 14:34 20:26 03:58 WBC 3.2 L Hgb 11.4 L Hct 35.2 L Plt Count 221 Sodium Potassium Chloride Carbon Dioxide BUN Creatinine Glucose Calcium Troponin I 0.00 0.02 01/19/17 03:58 WBC Hgb Hct Plt Count Sodium 136 Potassium 4.3 Chloride 104 Carbon Dioxide 22 BUN 13 Creatinine 1.13 Glucose 200 H Calcium 8.7 Troponin I Short CBC 01/19/17 Range/Units 03:58 WBC 3.2 L (4.3-11.1) K/mcL Hgb 11.4 L (12.9-16.9) g/dL Hct 35.2 L (37.5-50.1) % Plt Count 221 (140-400) K/mcL Neutrophils # 1.6 (1.6-8.9) K/mcL BMP 01/19/17 Range/Units 03:58 Sodium 136 (136-145) mEq/L Potassium 4.3 (3.5-4.5) mEq/L Chloride 104 (98-109) mEq/L Carbon Dioxide 22 (19-29) mEq/L BUN 13 (8-26) mg/dL Creatinine 1.13 (0.72-1.25) mg/dL Glucose 200 H (70-99) mg/dL Calcium 8.7 (8.6-10.8) mg/dL Cardiac Enzymes 01/18/17 01/18/17 Range/Units 20:26 14:34 Troponin I 0.02 0.00 (0-0.03) ng/mL Active Medications Amitriptyline HCl (Elavil) 20 mg PO HS MELITA Stop: 07/20/17 21:01 Last Admin: 01/18/17 21:48 Dose: 20 mg Amlodipine Besylate (Norvasc) 5 mg PO DAILY MELITA PRN Reason: Protocol Stop: 07/20/17 09:01 Last Admin: 01/19/17 08:04 Dose: 5 mg Aspirin (Aspirin) 81 mg PO DAILY [facility] Stop: 07/20/17 10:46 Last Admin: 01/19/17 08:03 Dose: 81 mg Atorvastatin Calcium (Lipitor) 80 mg PO DAILY MELITA Stop: 07/20/17 09:01 Last Admin: 01/19/17 08:03 Dose: 80 mg Carbidopa/Levodopa (Sinemet) 1 each PO BID MELITA Stop: 07/20/17 09:01 Last Admin: 01/19/17 08:04 Dose: 1 each Dextrose/Water (Dextrose 50% (Syg)) 25 ml IVP AD PRN PRN Reason: Hypoglycemia Stop: 07/20/17 07:34 Divalproex Sodium (Depakote (12 Hr)) 1,000 mg PO BID [facility] Stop: 07/20/17 09:01 Last Admin: 01/19/17 08:03 Dose: 1,000 mg Fenofibrate (Tricor) 162 mg PO DAILY MELITA Stop: 07/20/17 09:01 Last Admin: 01/19/17 08:04 Dose: 162 mg Ferrous Sulfate (Ferrous Sulfate) 325 mg PO BIDWM MELITA Stop: 07/20/17 08:01 Last Admin: 01/19/17 08:04 Dose: 325 mg Fluoxetine HCl (Prozac) 80 mg PO QAM MELITA Stop: 07/20/17 09:01 Last Admin: 01/19/17 08:03 Dose: 80 mg Gabapentin (Neurontin) 200 mg PO BID [facility] Stop: 07/20/17 09:01 Last Admin: 01/19/17 08:04 Dose: 200 mg Glucagon (Glucagen) 1 mg IM ONCE PRN PRN Reason: Hypoglycemia Stop: 07/20/17 07:34 Glucose (Gluctose) 15 gm PO ONCE PRN PRN Reason: Hypoglycemia Stop: 07/20/17 07:34 Glucose (Gluctose) 30 gm PO ONCE PRN PRN Reason: Hypoglycemia Stop: 07/20/17 07:34 Heparin Sodium (Porcine) (Heparin) 5,000 unit SQ Q12HCO [facility] Stop: 07/20/17 18:01 Last Admin: 01/19/17 05:39 Dose: 5,000 unit Sodium Chloride (0.9 % Sodium Chloride) 1,000 mls @ 60 mls/hr IVC .[id number] [facility] Stop: 07/20/17 07:31 Last Admin: 01/19/17 06:14 Dose: 60 mls/hr Dextrose (Dextrose 5%) 1,000 mls @ 100 mls/hr IVC .Q10H PRN PRN Reason: HYPOGLYCEMIA Stop: 07/20/17 07:34 Imipramine HCl (Tofranil) 50 mg PO HS [facility] Stop: 07/20/17 21:01 Last Admin: 01/18/17 21:45 Dose: 50 mg Insulin Detemir (Levemir) 10 unit SQ HS [facility] Stop: 07/20/17 21:01 Last Admin: 01/18/17 22:00 Dose: 10 unit Insulin Human Lispro (Humalog) 0 units SQ HS [facility] PRN Reason: Protocol Stop: 07/20/17 21:01 Last Admin: 01/18/17 21:53 Dose: Not Given Insulin Human Lispro (Humalog) 0 units SQ TIDAC [facility] PRN Reason: Protocol Stop: 07/20/17 11:31 Last Admin: 01/19/17 12:16 Dose: 12 units Lisinopril (Zestril) 20 mg PO BID [facility] PRN Reason: Protocol Stop: 07/20/17 09:01 Last Admin: 01/19/17 08:04 Dose: 20 mg Meclizine HCl (Antivert) 25 mg PO DAILY [facility] Stop: 07/20/17 09:01 Last Admin: 01/19/17 08:04 Dose: 25 mg Morphine Sulfate (Morphine Sulfate) 2 mg IVP Q4HR PRN PRN Reason: Severe Pain (7-10) Stop: 07/20/17 07:26 Naloxone HCl (Narcan) 0.4 mg IVP Q2MIN PRN PRN Reason: Opioid Reversal Stop: 07/20/17 07:26 Nitroglycerin (Nitroglycerin) 0.4 mg SL AD PRN PRN Reason: Chest Pain Stop: 07/20/17 07:29 Pharmacy Profile Note (Patient Taking Own Medication) 1 each PO BID MELITA Stop: 07/20/17 09:01 Last Admin: 01/19/17 12:16 Dose: Not Given Potassium Chloride (Potassium Chloride) 10 meq PO DAILY MELITA Stop: 07/20/17 09:01 Last Admin: 01/19/17 08:04 Dose: 10 meq Primidone (Mysoline) 50 mg PO HS MELITA Stop: 07/20/17 21:01 Last Admin: 01/18/17 21:47 Dose: 50 mg Tamsulosin HCl (Flomax) 0.4 mg PO HS MELITA PRN Reason: Protocol Stop: 07/20/17 21:01 Last Admin: 01/18/17 21:45 Dose: 0.4 mg Topiramate (Topamax) 150 mg PO BID MELITA Stop: 07/20/17 09:01 Last Admin: 01/19/17 08:04 Dose: 150 mg Ziprasidone 80 mg/ Ziprasidone (40 mg) 120 mg PO HS MELITA Stop: 07/20/17 21:01 Last Admin: 01/18/17 21:44 Dose: 120 mg - Imaging and Cardiology Echo: report reviewed - EKG Interpretation EKG results cardiology: other (24 hr tele AVG HR 71, no significant pauses, arrhythmias or bradycardic events.) Consult Discharge Plan - Plan Referrals: Eric Castillo MD [Primary Care Provider] - 01/28/17 4:00 pm <MichaelMicky - Last Filed: 01/19/17 17:44> Date of Encounter: 01/19/17 Assessment and Plan Discussion w patient/family: The assessment and plan as outlined above was discussed with the patient and/or family members who expressed understanding and agreement. All questions were answered. Thank you for involving us in the care of your patient. Please call with any questions. History of Present Illness History of present illness: Mr. Rodriguez is a 51 year old male All Systems Review: A 10-system review of systems was performed and is negative for pertinent findings except as documented above in the HPI. Physical Examination Vital Signs, Last 4 Hours Temp Pulse Resp BP Pulse Ox 01/19/17 15:23 98.2 F 73 16 111/79 98 Results 01/19/17 03:58 01/19/17 03:58 Lab Results 01/18/17 01/19/17 01/19/17 20:26 03:58 03:58 WBC 3.2 L Hgb 11.4 L Hct 35.2 L Plt Count 221 Sodium 136 Potassium 4.3 Chloride 104 Carbon Dioxide 22 BUN 13 Creatinine 1.13 Glucose 200 H Calcium 8.7 Troponin I 0.02 - Attending Attestation PT seen and examined, chart reviewed independently, essentially agree with findings, my evaluation as follows: CC: Passed out HPI: Pt reports 01/18/2017, awoke from bed, was walking to kitchen and lost consciousness. He does not recall event, awoke on the floor. He did not injure himself with the fall, He was not incontinent when awoke. He reports this is the only time he has completely blacked out. He has had many other episodes of near syncope, most recently two episodes in November of 2016 in which he was rushed using the restroom, was very relieved in the act of urinating, became dizzy and fell, once striking the floor with his head, and once striking the wall, leaving a large dent. He did not lose consciousness with those events , but could not stop falling. He has a long history of seizures, and follows with neurology at [place], and has had a vagal stimulator in place which has helped reduce freguency and severity of seizure activity. He has not had any further events since hospitalized. PE: Agree with documented findings IMP/Plan 1. Syncope, suspect at least partially due to orthstasis, pt has hx positive dizziness with change in position, self limits changing position from chair to standing with a twenty second pause to avoid dizziness. He has been prescribed RICK hose, but finds them too difficult to get on and off. Will order orthostatic vital signs, continue to monitor positional changes. IF orthostatics positive will DC amlodipine. 2. Abnormal EKG: EKG obtained at [address] seg changes lateral leads which may be ischemic, or could be due to obtaining tracing while upright, changes not present on repeat study, will order pharmacologic stress to further evaluation. 3. Hypertension: May be too well controlled on current meds, will start with DC amlodipine if orthstatics positive, may need to allow blood pressure to climb to 130s to limit symptoms. Will follow with you, additional recomendations as data base returns.
[2017-01-19] MEDS ORDERED: Magnesium Oxide 400 MG TABLET PO ONE (16:22)
--- NOTE | 2017-01-19 17:48 | Carotid Imaging Report ---
Carotid Duplex Patient Name:Kris Rodriguez Order Number:[id number] Procedure Date:01/18/2017 Date:1965Age:51 yrs Gender:Male Lt BP:120 / 85 mmHg Rt.BP:117 / 83 mmHgHeart Rate: Location:[facility] Room #: 3B32 Refractory Specialist:Ana Swanson, NANCY, RVT Referring MD:Vinicius Burris MD Reading MD:Ryan Navarro MD , FACS Primary Indications:Syncope and collapse Risk Factors Yes/No Hypertension Yes Diabetes Yes Hypercholesterolemia Yes Smoker Previous Yes Impressions: Findings: Bilateral carotid systems are essentially normal. Recommendations: After imaging the patient returned to their room. Findings Carotid Duplex: Right: The right proximal common carotid artery has a PSV of 72 cm/s and a EDV of 16 cm/s. The right mid common carotid artery has a PSV of 58 cm/s and a EDV of 17 cm/s. The right distal common carotid artery has a PSV of 55 cm/s and a EDV of 22 cm/s. There is nonstenotic plaque in the right bifurcation with a PSV of 42 cm/s and a EDV of 18 cm/s. The right proximal internal carotid artery has a PSV of 31 cm/s and a EDV of 10 cm/s. The right mid internal carotid artery has a PSV of 44 cm/s and a EDV of 21 cm/s. The right distal internal carotid artery has a PSV of 62 cm/s and a EDV of 28 cm/s. The right eca has a PSV of 47 cm/s and a EDV of 11 cm/s. The right vertebral artery has a PSV of 49 cm/s and a EDV of 18 cm/s. There is antegrade spectral Doppler flow patterns. Left: The left proximal common carotid artery has a PSV of 93 cm/s and a EDV of 24 cm/s. The left mid common carotid artery has a PSV of 72 cm/s and a EDV of 19 cm/s. The left distal common carotid artery has a PSV of 46 cm/s and a EDV of 19 cm/s. The left bifurcation has a PSV of 45 cm/s and a EDV of 17 cm/s. The left proximal internal carotid artery has a PSV of 47 cm/s and a EDV of 24 cm/s. The left mid internal carotid artery has a PSV of 70 cm/s and a EDV of 39 cm/s. The left distal internal carotid artery has a PSV of 83 cm/s and a EDV of 40 cm/s. The left eca has a PSV of 43 cm/s and a EDV of 12 cm/s. The left vertebral artery has a PSV of 34 cm/s and a EDV of 12 cm/s. There is antegrade spectral Doppler flow patterns. Carotid Results Right PSV EDV Assessment Proximal CCA 72 16 Mid CCA 58 17 Distal CCA 55 22 Bifurcation 42 18 Non Stenotic Plaque Proximal ICA 31 10 Mid ICA 44 21 Distal ICA 62 28 ECA 47 11 Vertebral Artery 49 18 Antegrade Flow Left PSV EDV Assessment Proximal CCA 93 24 Mid CCA 72 19 Distal CCA 46 19 Bifurcation 45 17 Proximal ICA 47 24 Mid ICA 70 39 Distal ICA 83 40 ECA 43 12 Vertebral Artery 34 12 Antegrade Flow Ratio's Right ICA/CCA Ratio: 1.06 ICA/CCA Values: 62/58 Left ICA/CCA Ratio: 1.15 ICA/CCA Values: 83/72 Updated by Ryan Navarro MD, FACS on 01/19/2017 5:42:44 PM Ryan Navarro MD electronically signed on 01/19/2017 5:43:52 PM with status of Final
[2017-01-19] MEDS: Primidone 50 MG TABLET PO SCH (20:49)
[2017-01-19] MEDS: Insulin DETEMIR 100 UNIT/ML X5UNITS SQ SCH (20:50)
[2017-01-20] MEDS: 0.9 % Sodium Chloride 1,000 ML IVC SCH (00:05)
[2017-01-20 04:03] LABS: Basophils % 0.5 %; Eosinophils # 0.1 K/mcL (0.0-0.6); Hematocrit 34.5 % (37.5-50.1); Hemoglobin 11.1 g/dL (12.9-16.9); Immature Granulocytes % 0.8 % (0-4); Lymphocytes # 1.4 K/mcL (0.6-4.6); Lymphocytes % 37.9 %; Mean Corpuscular HGB Conc 32.2 g/dL (31.6-35.5); Mean Corpuscular Hemoglobin 26.3 pg (28.0-33.3); Mean Corpuscular Volume 81.8 fL (83.0-100.0); Mean Platelet Volume 10.8 fL (9.4-12.4); Monocytes # 0.3 K/mcL (0.0-1.3); Monocytes % 8.2 %; Neutrophils # 1.8 K/mcL (1.6-8.9); Platelet Count 226 K/mcL (140-400); Red Blood Count 4.22 M/mcL (4.19-5.50); Red Cell Distribution Width 13.8 % (11.5-14.5); Segmented Neutrophils % 49.6 %
[2017-01-20 04:19] LABS: BUN/Creatinine Ratio 13 (6-26); Blood Urea Nitrogen 13 mg/dL (8-26); Calcium 8.9 mg/dL (8.6-10.8); Carbon Dioxide 17 mEq/L (19-29); Chloride 107 mEq/L (98-109); Glucose 244 mg/dL (70-99); Osmolality,Calculated 286 (280-300); Potassium 4.4 mEq/L (3.5-4.5); Sodium 134 mEq/L (136-145); eGFR For African Americans > 60 (> 60); eGFR For Non-African Americans > 60 (> 60)
[2017-01-20] MEDS: *HR* Heparin 5,000 UNIT/ML VIAL SQ SCH ×2 (05:58→18:04)
[2017-01-20] MEDS ORDERED: Regadenoson 0.4 MG/5 ML SYRINGE IVP ONE (06:13)
--- NOTE | 2017-01-20 09:40 | Cardiology Progress Note ---
Date of Encounter: 01/20/17 Time of Encounter: 09:30 Assessment and Plan (1) Syncope Current Visit: Yes Status: Acute Per cardiology: -Syncopal event Tuesday night. Pt reports walking into kitchen, waking up on the floor. -Suspect orthostatic component. Check orthostatic vitals. BP has been borderline --98/75 on presentation, lisinopril was decreased BP currently 110-120s systolic. -Reportedly first actual syncopal event. Reports episodes that occur 1-2 weeks once every year or so of staring and bring unable to respond, but does not lose consciousness. -Echo EF 50-55%, mild diastolic dysfunction, no significant valvular dysfunction. -Tilt table at outside facility in 2013 with mild orthostatic response. -Significant seizure hx, but pt reports this was unlike seizures. Has vagal nerve stimulator--follows with neurology at [place]. -Telemetry AVG HR 72--no significant pauses, arrhythmias or bradycardic events. -Pt denies hx of arrhythmias but old record from [place] in 2012 in [facility] records states pt had an episode of A-Flutter during hospitalization -Stress pending. -Continue to monitor. If recurrent syncope can consider event monitor vs loop recorder as outpt. -Further recommendations pending stress. Qualifiers: Syncope type: unspecified Qualified Code(s): R55 - Syncope and collapse (2) Abnormal EKG Current Visit: Yes Status: Acute Per cardiology: -EKGs reviewed. EKG 01/18/[address] depression compared to EKG 01/14/17. -Troponins negative x 4. -Pt denies chest pain recently, but reports having had chest pain in the past. Never had LHC. Has had stress tests in the past. -Risk factors for CAD include DM, HTN, HLD and premature family hx. Pt reports his father had CABG x 4 at age 50 and his grandparents on both sides had MIs. -Echo EF 50-55%, mild LVDD, no significant valvular dysfunction. -Pharmacologic nuclear stress test pending. -Further recommendations pending stress. Discussion w patient/family: The assessment and plan as outlined above was discussed with the patient who expressed understanding and agreement. All questions were answered. Thank you for involving us in the care of your patient. Please call with any questions. Discussed and reviewed with . Subjective Principal diagnosis: Syncope Interval history: Patient states he feels ok this morning. Patient states he had one episode of dizziness last night that is similar to his episodes he has at home. Patient denies chest pain or shortness of breath overnight. Objective Vital Signs, Last 4 Hours Temp Pulse Resp BP Pulse Ox 01/20/17 08:01 97.4 F L 70 20 126/83 100 General: Conversant, No Apparent Distress HEENT: Atraumatic, Normocephaly, Mucus Membranes Moist Neck: No JVD, Normal carotid pulses Cardiac: Reg Rate and Rhythm, Normal S1 and S2, No Murmur Lungs: Normal Breath Sounds, No Wheeze, Rales, Rhonchi Neuro: Alert and responsive, No focal deficits noted Abdomen: Soft, Non-Tender Skin: No rashes noted on visualized skin Musculoskeletal: No Chest Wall Tenderness Extremities: No Clubbing, No Cyanosis, No Edema, Normal Pulses Results 01/20/17 03:09 01/20/17 03:09 Lab Results Impressions Echocardiogram 01/18/17 07:32 Impressions: LVEF 50-55%. There is evidence of mild diastolic dysfunction of the left ventricle. Normal right ventricular size and function. No significant valvular dysfunction. No pulmonary hypertension by TR gradient. Left Ventricular Wall Motion: Rest Echo Findings All wall segments showed normal motion. Findings: Study Quality * Technically adequate exam. ECG Findings * Normal sinus rhythm. Left Ventricle * Mild left ventricular diastolic dysfunction. * Asymmetric septal hypertrophy. * Normal LV size. * LVEF 50-55%. Aorta * Normally sized aortic root. Aortic Valve * No aortic regurgitation. * Trileaflet aortic valve. * Normal aortic valve structure. * No aortic stenosis. Mitral Valve * Normal mitral valve structure. * No mitral regurgitation. * No mitral stenosis. Tricuspid Valve * Tricuspid valve not well visualized. * No tricuspid regurgitation. Pulmonic Valve * Pulmonic valve is not well visualized. * No pulmonic stenosis. * No pulmonic regurgitation. Pulmonary Artery * Pulmonary artery not well visualized. Right Ventricle * Normal right ventricular structure and function. Left Atrium * Normal left atrial size. Right Atrium * Normal right atrial size. Pericardium * There is no pericardial effusion present. Interatrial Septum * Interatrial septum not well evaluated. IVC * The IVC is not well evaluated. Active Medications Amitriptyline HCl (Elavil) 20 mg PO HS [facility] Stop: 07/20/17 21:01 Last Admin: 01/19/17 20:48 Dose: 20 mg Amlodipine Besylate (Norvasc) 5 mg PO DAILY [facility] PRN Reason: Protocol Stop: 07/20/17 09:01 Last Admin: 01/19/17 08:04 Dose: 5 mg Aspirin (Aspirin) 81 mg PO DAILY [facility] Stop: 07/20/17 10:46 Last Admin: 01/19/17 08:03 Dose: 81 mg Atorvastatin Calcium (Lipitor) 80 mg PO DAILY [facility] Stop: 07/20/17 09:01 Last Admin: 01/19/17 08:03 Dose: 80 mg Carbidopa/Levodopa (Sinemet) 1 each PO BID [facility] Stop: 07/20/17 09:01 Last Admin: 01/19/17 20:49 Dose: 1 each Dextrose/Water (Dextrose 50% (Syg)) 25 ml IVP AD PRN PRN Reason: Hypoglycemia Stop: 07/20/17 07:34 Divalproex Sodium (Depakote (12 Hr)) 1,000 mg PO BID [facility] Stop: 07/20/17 09:01 Last Admin: 01/19/17 20:48 Dose: 1,000 mg Fenofibrate (Tricor) 162 mg PO DAILY [facility] Stop: 07/20/17 09:01 Last Admin: 01/19/17 08:04 Dose: 162 mg Ferrous Sulfate (Ferrous Sulfate) 325 mg PO BIDWM [facility] Stop: 07/20/17 08:01 Last Admin: 01/19/17 17:35 Dose: 325 mg Fluoxetine HCl (Prozac) 80 mg PO QAM [facility] Stop: 07/20/17 09:01 Last Admin: 01/19/17 08:03 Dose: 80 mg Gabapentin (Neurontin) 200 mg PO BID [facility] Stop: 07/20/17 09:01 Last Admin: 01/19/17 20:50 Dose: 200 mg Glucagon (Glucagen) 1 mg IM ONCE PRN PRN Reason: Hypoglycemia Stop: 07/20/17 07:34 Glucose (Gluctose) 15 gm PO ONCE PRN PRN Reason: Hypoglycemia Stop: 07/20/17 07:34 Glucose (Gluctose) 30 gm PO ONCE PRN PRN Reason: Hypoglycemia Stop: 07/20/17 07:34 Heparin Sodium (Porcine) (Heparin) 5,000 unit SQ Q12HCO [facility] Stop: 07/20/17 18:01 Last Admin: 01/20/17 05:58 Dose: 5,000 unit Dextrose (Dextrose 5%) 1,000 mls @ 100 mls/hr IVC .Q10H PRN PRN Reason: HYPOGLYCEMIA Stop: 07/20/17 07:34 Imipramine HCl (Tofranil) 50 mg PO [facility] Stop: 07/20/17 21:01 Last Admin: 01/19/17 20:48 Dose: 50 mg Insulin Detemir (Levemir) 10 unit SQ HS [facility] Stop: 07/20/17 21:01 Last Admin: 01/19/17 20:50 Dose: 10 unit Insulin Human Lispro (Humalog) 0 units SQ HS [facility] PRN Reason: Protocol Stop: 07/20/17 21:01 Last Admin: 01/19/17 20:50 Dose: Not Given Insulin Human Lispro (Humalog) 0 units SQ TIDAC [facility] PRN Reason: Protocol Stop: 07/20/17 11:31 Last Admin: 01/19/17 17:35 Dose: 6 units Lisinopril (Zestril) 10 mg PO BID [facility] PRN Reason: Protocol Stop: 07/21/17 21:01 Last Admin: 01/19/17 20:49 Dose: 10 mg Meclizine HCl (Antivert) 25 mg PO DAILY [facility] Stop: 07/20/17 09:01 Last Admin: 01/19/17 08:04 Dose: 25 mg Morphine Sulfate (Morphine Sulfate) 2 mg IVP Q4HR PRN PRN Reason: Severe Pain (7-10) Stop: 07/20/17 07:26 Naloxone HCl (Narcan) 0.4 mg IVP Q2MIN PRN PRN Reason: Opioid Reversal Stop: 07/20/17 07:26 Nitroglycerin (Nitroglycerin) 0.4 mg SL AD PRN PRN Reason: Chest Pain Stop: 07/20/17 07:29 Pharmacy Profile Note (Patient Taking Own Medication) 1 each PO BID [facility] Stop: 07/20/17 09:01 Last Admin: 01/19/17 20:50 Dose: Not Given Potassium Chloride (Potassium Chloride) 10 meq PO DAILY [facility] Stop: 07/20/17 09:01 Last Admin: 01/19/17 08:04 Dose: 10 meq Primidone (Mysoline) 50 mg PO [facility] Stop: 07/20/17 21:01 Last Admin: 01/19/17 20:49 Dose: 50 mg Tamsulosin HCl (Flomax) 0.4 mg PO [facility] PRN Reason: Protocol Stop: 07/20/17 21:01 Last Admin: 01/19/17 20:49 Dose: 0.4 mg Topiramate (Topamax) 150 mg PO BID [facility] Stop: 07/20/17 09:01 Last Admin: 01/19/17 20:49 Dose: 150 mg Ziprasidone 80 mg/ Ziprasidone (40 mg) 120 mg PO [facility] Stop: 07/20/17 21:01 Last Admin: 01/19/17 20:49 Dose: 120 mg Laboratory Tests 01/18/17 01/18/17 01/18/17 05:00 09:05 14:34 Hgb Creatinine Troponin I 0.02 0.00 0.00 01/18/17 01/20/17 01/20/17 20:26 03:09 03:09 Hgb 11.1 L Creatinine 1.04 Troponin I 0.02 - Imaging and Cardiology Chest Xray: report reviewed Stress Test: pending Echo: report reviewed - EKG Interpretation EKG results cardiology: other (Telemetry reviewed with average HR previous 12 hours noted to be 72, sinus rhythm.) Consult Discharge Plan - Plan Referrals: Eric Castillo MD [Primary Care Provider] - 01/28/17 4:00 pm
[2017-01-20] MEDS: Insulin LISPRO 300 UNITS/3 ML VIAL SQ SCH ×3 (11:36→18:04)
[2017-01-20] MEDS: Carbidopa/Levodopa 25/100 TABLET PO SCH (11:36)
[2017-01-20] MEDS: FLUoxetine 20 MG CAPSULE PO SCH (11:36)
[2017-01-20] MEDS: Divalproex (12 HR) 500 MG TABLET PO SCH (11:36)
[2017-01-20] MEDS: amLODIPine 5 MG TABLET PO SCH (11:37)
[2017-01-20] MEDS: Gabapentin 100 MG CAPSULE PO SCH (11:37)
[2017-01-20] MEDS: Aspirin 81 MG TAB.CHEW PO SCH (11:37)
[2017-01-20] MEDS: Topiramate 100 MG TABLET PO SCH (11:37)
[2017-01-20] MEDS: Fenofibrate 54 MG TABLET PO SCH (11:37)
[2017-01-20] MEDS: Omega-3 Acid Ethyl Esters [Lovaza] 1 GM PO SCH (11:38)
--- NOTE | 2017-01-20 13:25 | Nuclear Medicine Stress Report ---
Regadenoson Nuclear Stress Name: Kris Rodriguez Date of Study: 01/20/2017 Date: 1965 Ht: 70.0 in Medical Record#: [id number] Age: 51 Wt: 245.0 lb Gender: Male Order #: [id number] Location: [facility] Room: [facility] Supervising Provider: Kingsley Mancera CNP Reading Physician: Francisco Alvarado MD, [facility] Ordering Physician: Mirza Lynn CNP Stress Technologist: Becky Gonzales [employer],[facility] [employer]: Lesley Flores Indications: Chest Pain, Syncope Impression: Gated LVEF = 64%. Perfusion imaging was negative for ischemia or infarct. History: Hypertension Diabetes Hypercholesteremia Stress Test Summary: Stress Test Type: Pharmacologic Regadenoson 0.4mg/5ml given IV Baseline Information: Initial Heart Rate: 70 Blood Pressure: 112/82 Stress Information: Test Terminated Due to (primary): As per protocol Maximum Blood Pressure: 106/62 Maximum Heart Rate: 90 Percent Maximum Heart Rate Achieved: 53 Double Product: [id number] Symptoms: Chest pain Nuclear Summary: SPECT myocardial perfusion imaging using Tc99m Sestamibi given intravenously was performed at rest and following cardiac stress testing. The resting images were obtained following initial dose of 10.6 mCi. Following stress an additional dose of 32.5 mCi was given at peak exercise or 30 seconds post regadenoson infusion. Findings: Stress Note * Resting ECG demonstrated sinus rhythm, non-specific ST-T wave abnormality. * No baseline arrhythmias were noted. * Patient reported mild-moderate chest pain prior to the examination. Chest pain did not change with regadenoson. * No arrhythmias were noted during stress. * No significant ECG changes with regadenoson. Hemodynamic responses * Normal hemodynamic responses to pharmacologic stress. Study Quality * Study quality is good. Gated EF % * Gated LVEF = 64%. Left Ventricle * The left ventricle is not dilated. * Normal Segmental Perfusion in rest. * Normal segmental perfusion in stress. TID * No evidence of transient ischemic dilatation. Updated by Francisco Alvarado MD, [facility] on 01/20/2017 1:20:00 PM electronically signed on 01/20/2017 1:20:44 PM with status of Final
[2017-01-20 15:15] VITALS: BP 125/87
--- NOTE | 2017-01-20 17:56 | Discharge Summary ---
Date of Encounter: 01/20/17 Time of Encounter: 16:00 - Discharge Diagnosis (1) Syncope Priority: Primary Status: Chronic Comments: Stress test negative, echo with EF of 50-55%, mild diastolic dysfunction, no significant valvular dysfunction. Pt will follow up out patient with cardiology in the office and will need to see his neurologist in [place]. Qualifiers: Syncope type: unspecified Qualified Code(s): R55 - Syncope and collapse (2) NAKIA (obstructive sleep apnea) Priority: Secondary Status: Chronic Comments: Pt may need to follow up for re-evaluation with Dr. Malone for new mask for bipap. (3) Obesity (BMI 30-39.9) Priority: Secondary Status: Chronic Comments: Chronic. Lifestyle modifications. (4) DM type 2 (diabetes mellitus, type 2) Priority: Secondary Status: Chronic Comments: A1c is 9.4. Continue home medications. Qualifiers: Diabetes mellitus complication status: with unspecified complications Diabetes mellitus ferry terminal agent insulin use: with chcf use Qualified Code(s) : E11.8 - Type 2 diabetes mellitus with unspecified complications; Z79.4 - ferry terminal agent (current) use of insulin (5) CKD (chronic kidney disease), stage III Priority: Secondary Status: Chronic Comments: Renal function has returned to normal limits. Serum creatinine is 1.04 GFR is greater than 60. Continue to avoid nephrotoxins follow up with primary care for further evaluation and monitoring. (6) Hypertension Priority: Secondary Status: Chronic Comments: Chronic. Well controlled. Continue home medications. Qualifiers: Hypertension type: essential hypertension Qualified Code(s): I10 - Essential (primary) hypertension (7) Seizure disorder Priority: Secondary Status: Chronic Comments: Patient has vagal nerve stimulator. Seizures are well-controlled. He follows with neurology at [facility]. Recommend outpatient follow-up. (8) Status post VNS (vagus nerve stimulator) placement Priority: Secondary Status: Chronic (9) DVT prophylaxis Priority: Secondary Status: Acute Comments: Heparin subcutaneous. - Discharge Medications Home Medications: Atorvastatin Calcium [Lipitor] 80 mg PO DAILY 12/18/15 [History] FLUoxetine HCl [Prozac] 80 mg PO QAM 12/18/15 [History] Famotidine [Pepcid] 40 mg PO HS 12/18/15 [History] Gabapentin [Neurontin] 200 mg PO BID 12/18/15 [History] Imipramine HCl [Tofranil] 50 mg PO HS 12/18/15 [History] LORazepam [Ativan] 0.5 mg PO HS 12/18/15 [History] Liraglutide [Victoza 2-Norman] 1.2 mg SQ QAM 12/18/15 [History] Lisinopril [Zestril] 20 mg PO BID 12/18/15 [History] Meclizine HCl [Verticalm] 25 mg PO DAILY 12/18/15 [History] Metformin HCl [Glucophage] 1,000 mg PO QPM 12/18/15 [History] Nitroglycerin [Nitrostat] 0.4 mg SL AD PRN 12/18/15 [History] Onabotulinumtoxina [Botox] 200 unit IM [id number] 12/18/15 [History] Pantoprazole Sodium [Protonix] 40 mg PO BID 12/18/15 [History] Primidone [Mysoline] 50 mg PO HS 12/18/15 [History] SUMAtriptan Succinate [Imitrex] 100 mg PO AD PRN 12/18/15 [History] Tamsulosin [Flomax] 0.4 mg PO HS 12/18/15 [History] Topiramate [Topamax] 150 mg PO BID 12/18/15 [History] Ziprasidone HCl [Geodon] 120 mg PO HS 12/18/15 [History] amLODIPine [Norvasc] 5 mg PO DAILY 12/18/15 [History] Carbidopa/Levodopa 25/100 [Sinemet 25/100] 1 each PO BID 12/19/15 [History] Divalproex (12 HR) [Depakote (12 HR)] 1,000 mg PO BID 12/19/15 [History] Fenofibrate [Lofibra] 160 mg PO DAILY 12/19/15 [History] Amitriptyline [Elavil] 20 mg PO HS 01/18/17 [History] Butalbital/Aspirin/Caffeine [Fiorinal 50-325-40 mg Capsule] 1 cap PO QID PRN [History] Dexlansoprazole [Dexilant] 60 mg PO DAILY 01/18/17 [History] Insulin ASPART [NovoLOG] 0 unit SQ TID PRN 01/18/17 [History] Insulin Glargine [Lantus] 10 unit SQ HS 01/18/17 [History] Oxaprozin [Daypro] 600 mg PO BID 01/18/17 [History] Promethazine [Phenergan] 25 mg PO Q8HR PRN 01/18/17 [History] Allergies/Adverse Reactions: 3 Allergy/AdvReac Type Severity Reaction Status Date / Time acetaminophen [From Percocet] AdvReac See Verified 01/14/17 09:05 Comments Influenza Virus Vaccines AdvReac Hives Verified 01/14/17 09:05 Oxycodone [From Percocet] AdvReac See Verified 01/14/17 09:05 Comments Pneumococcal Vaccine AdvReac Hives Verified 01/14/17 09:05 Zolpidem [From Ambien] AdvReac See Verified 01/14/17 09:05 Comments Procedures/tests Complete & Pending: Procedures Performed prior 72 hours Category Date Time Status NM krista perf SPECT multi [NM] Routine Exams 01/19/17 16:24 Taken ECG 12 lead ECG [ECG] AM 0600 Y 01/19/17 06:00 Ordered ECG 12 lead ECG [ECG] Routine Y 01/19/17 16:11 Completed EKG [ECG 12 lead ECG] [ECG] Stat Y 01/19/17 15:44 Completed EV carotid duplex imaging BI Routine Y 01/18/17 07:32 Completed EV echocardiogram Routine Y 01/18/17 07:32 Completed SP pharm nuclear stress Routine Y 01/20/17 07:25 Completed Date of admission: 01/18/17 06:59 Primary care physician: Eric Castillo MD Consults: 01/19/17 12:57 Consult to Cardiology [CONS] Routine Comment: Consulting Provider: [facility] [place] Reason for Consult: lengthy history of syncope, pt has VNS for seizure control. Possible bradycardia? Pt has had a work up in the past, negative. Neuro at [facility]. Evaluate for possible loop recorder? Time Notified: 13:00 Call Completed: Yes Discharging clinician: Eliane Hanks Anticipated date of discharge: 01/20/17 - Patient Status Disposition: Home, Self-Care Functional capacity at discharge: independent ambulation Overall status at discharge: patient is back to baseline - Discharge Instructions Follow Up With: Eric Castillo MD [Primary Care Provider] - 01/28/17 4:00 pm Additional Instructions: Follow up with your primary care provider in the next 7-10 days for a follow-up visit. Follow up with neurology in [place] within the next 2 weeks. Follow-up with cardiology as scheduled. Resume her normal home medications. Resume your normal activities as tolerated. Return to the emergency department as needed for any other problems or concerns , or if symptoms return or worsen. - Diet and Activity Activity: increase activity as tolerated Diet: advance to your usual diet Hospital course: Mr. Rodriguez is a 51 year old male with past medical history of seizures with vagal nerve stimulator, syncope, obesity, type 2 diabetes, fibular fracture, NAKIA , hypertension, CK D stage III. He presented to the emergency department with recent syncopal episodes. Patient states that he actually hit the wall in his home and knocked a hole in the drywall. History of same since 2011. Patient states with prior episodes he was awake and was aware of everything that was going on around him. The episodes within the last week, he reports syncope of unknown duration. He denies any warning that these episodes are going to happen. Patient had a vagal nerve stimulator placed in 2010 for seizure control , syncopal episodes began in 2011. He has had multiple workups in the past with no definitive results. EKG in the emergency department was normal sinus rhythm with a rate of 93, NV interval 142, QRS 114, QTC 389. There is moderate T-wave abnormality in leads V3 through V6. Chest x-ray was negative. Head CT shows stable negative CT of the brain with no acute intracranial abnormality. Bilateral carotid Dopplers were essentially normal. Echocardiogram showed LVEF of 50-55% with mild LV DD, no significant valvular dysfunction. Stress test was negative for ischemia or infarct with LVEF 64%. I consulted cardiology to discuss possible loop recorder placement. Patient reports for syncopal episode after vagal nerve stimulator was placed. Although low suspicion, I thought it was possible that the available nerve stimulator was causing bradycardia. Cardiology has seen patient and have signed off. He will follow up in the office for continued evaluation and there are further episodes, event monitor versus loop recorder will be discussed as outpatient. Is also recommended that he follow-up with his neurologist in [place] for evaluation of the device. Patient denies chest pain, shortness of breath, diaphoresis, nausea, vomiting, diarrhea, headache, blurred vision, abdominal pain, or stiff neck. His labs are within normal limits. Renal function is within normal limits with a serum creatinine of 1.04 and a GFR of greater than 60. A1c is 9.4 during this visit. Patient had hypomagnesemia that was treated with mag oxide. Patient appears to have chronic anemia. Hemoglobin is stable and steady at 11.1 , which appears to be right around his baseline for the last year. Patient is asymptomatic. His vital signs are stable and within normal limits. Patient is stable and appropriate for discharge. - Time Spent with Patient Total time spent providing and/or coordinating discharge services: Less than 30 minutes - Constitutional Vitals: Temp Pulse Resp BP Pulse Ox 97.6 F 73 18 125/87 98 01/20/17 15:14 01/20/17 15:14 01/20/17 15:14 01/20/17 15:14 01/20/17 15:14 General appearance: Present: cooperative, A&O X 3, pleasant, no acute distress, obese, answers questions appropriately - Head Head exam: Present: atraumatic, normal inspection, normocephalic - Eye Eye exam: Present: normal appearance, conjuntiva pink, sclera anicteric - Neck Neck exam general surgery: Present: supple, trachea midline. Absent: lymphadenopathy - Respiratory Respiratory exam: Present: CTAB. Absent: accessory muscle use, chest wall tenderness, decreased breath sounds, rales, rhonchi, wheezes - Cardiovascular Cardiovascular exam: Present: RRR, +S1, +S2. Absent: diastolic murmur, gallop, rubs, systolic murmur - GI/Abdominal GI/Abdominal exam: Present: normal bowel sounds, soft, no peritoneal signs. Absent: distended, hepatomegaly, tenderness - Extremities Exam Extremities exam: Present: normal inspection, warm, radial pulses palpable and symmetrical. Absent: calf tenderness, cyanotic, pedal edema - Neurological Exam Neurological exam: Present: alert, oriented X3, no focal deficits. Absent: pronater drift, facial droop, speech deficit - Skin Skin exam: Present: dry, intact, normal color, warm. Absent: rash
--- NOTE | 2017-01-20 19:37 | Electrocardiograph Report ---
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
--- NOTE | 2017-01-20 19:37 | Electrocardiograph Report ---
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
== END 2017-01-20 19:05 | disposition home or self-care (01) ==
LOC: EMEROO 04:38 → 3BNU 04:38 → SUATTDRO 06:59 → 3BNU 09:09
PROVIDERS: ADMIT Internal Medicine; ATTEND Internal Medicine

== ENCOUNTER 2017-01-29 02:01 | Observation (INO) ==
[2017-01-29] MEDS ORDERED: 0.9 % Sodium Chloride 1,000 ML IVC ONE (03:48)
[2017-01-29 04:29] LABS: Basophils % 0.4 %; Eosinophils # 0.1 K/mcL (0.0-0.6); Hematocrit 40.4 % (37.5-50.1); Immature Granulocytes % 0.5 % (0-4); Lymphocytes # 2.2 K/mcL (0.6-4.6); Mean Corpuscular HGB Conc 32.2 g/dL (31.6-35.5); Mean Corpuscular Hemoglobin 25.9 pg (28.0-33.3); Mean Corpuscular Volume 80.6 fL (83.0-100.0); Mean Platelet Volume 10.6 fL (9.4-12.4); Monocytes # 0.4 K/mcL (0.0-1.3); Monocytes % 7.3 %; Neutrophils # 2.8 K/mcL (1.6-8.9); Platelet Count 212 K/mcL (140-400); Red Blood Count 5.01 M/mcL (4.19-5.50); Red Cell Distribution Width 13.7 % (11.5-14.5); Segmented Neutrophils % 50.8 %
[2017-01-29 04:43] LABS: BUN/Creatinine Ratio 14 (6-26); Blood Urea Nitrogen 16 mg/dL (8-26); Calcium 10.5 mg/dL (8.6-10.8); Carbon Dioxide 26 mEq/L (19-29); Chloride 98 mEq/L (98-109); Glucose 194 mg/dL (70-99); Osmolality,Calculated 280 (280-300); Potassium 4.5 mEq/L (3.5-4.5); Sodium 132 mEq/L (136-145); eGFR For African Americans > 60 (> 60); eGFR For Non-African Americans > 60 (> 60)
--- NOTE | 2017-01-29 05:06 | Emergency Department Note ---
Disposition Clinical Impression: Syncope and collapse Disposition: Admitted As Inpatient Condition: Fair Time of Disposition: 07:00 Syncope HPI - General Chief Complaint: ED Syncope Stated Complaint: Syncopal episode/fall Time Seen by Provider: 01/29/17 02:42 Source: patient Limitations: no limitations Nursing Notes Reviewed: Yes Vital Signs Reviewed: Yes - History of Present Illness HPI Narrative: Patient is a 51-year-old male who presents to [facility] ED with a chief complaint of syncopal episodes. Over the last 5 years, he has had around 7-8 episodes per year. States he then went couple years without any episodes. They started up again just recently. Over the last few weeks, he has had another 7-8 episodes. Patient was just admitted recently to our facility for syncopal workup. He was seen by cardiology and was told to follow- up in the office to discuss placement of the loop recorder. Patient was seen in the emergency department yesterday and then fell again twice since then. He hit the back of his head. Denies any loss of consciousness or altered mentation. Past medical history also significant for epilepsy. However he states with those episodes, he has prodromal symptoms and has urinary incontinence. States these episodes are different from that. Denies any chest pain or difficulty breathing. No abdominal pain, problems with urination or bowel movements. No recent fevers or upper respiratory type symptoms. Pt Subjective Complaint: collapsed Duration: second(s) Prodromal Symptoms: lightheaded Witnessed: yes - by bystander Context: other (while walking) Injuries Sustained Associated with Event: head Current Symptoms: lightheaded History: previous syncopal episode Treatments prior to arrival: none - Related Data Home Medications Medication Instructions Recorded Confirmed Atorvastatin Calcium [Lipitor] 80 mg PO DAILY 12/18/15 01/18/17 FLUoxetine HCl [Prozac] 80 mg PO QAM 12/18/15 01/18/17 Famotidine [Pepcid] 40 mg PO HS 12/18/15 01/18/17 Gabapentin [Neurontin] 200 mg PO BID 12/18/15 01/18/17 Imipramine HCl [Tofranil] 50 mg PO HS 12/18/15 01/18/17 LORazepam [Ativan] 0.5 mg PO HS 12/18/15 01/18/17 Liraglutide [Victoza 2-Norman] 1.2 mg SQ QAM 12/18/15 01/18/17 Lisinopril [Zestril] 20 mg PO BID 12/18/15 01/18/17 Meclizine HCl [Verticalm] 25 mg PO DAILY 12/18/15 01/18/17 Metformin HCl [Glucophage] 1,000 mg PO QPM 12/18/15 01/18/17 Nitroglycerin [Nitrostat] 0.4 mg SL AD PRN 12/18/15 01/18/17 Onabotulinumtoxina [Botox] 200 unit IM [id number] 12/18/15 01/18/17 Pantoprazole Sodium [Protonix] 40 mg PO BID 12/18/15 01/18/17 Primidone [Mysoline] 50 mg PO HS 12/18/15 01/18/17 SUMAtriptan Succinate [Imitrex] 100 mg PO AD PRN 12/18/15 01/18/17 Tamsulosin [Flomax] 0.4 mg PO HS 12/18/15 01/18/17 Topiramate [Topamax] 150 mg PO BID 12/18/15 01/18/17 Ziprasidone HCl [Geodon] 120 mg PO HS 12/18/15 01/18/17 amLODIPine [Norvasc] 5 mg PO DAILY 12/18/15 01/18/17 Carbidopa/Levodopa [Sinemet 1 each PO BID 12/19/15 01/18/17 25] Divalproex (12 HR) [Depakote (12 1,000 mg PO BID 12/19/15 01/18/17 HR)] Fenofibrate [Lofibra] 160 mg PO DAILY 12/19/15 01/18/17 Amitriptyline [Elavil] 20 mg PO HS 01/18/17 01/18/17 Butalbital/Aspirin/Caffeine 1 cap PO QID PRN 01/18/17 01/18/17 [Fiorinal 50-325-40 mg Capsule] Dexlansoprazole [Dexilant] 60 mg PO DAILY 01/18/17 01/18/17 Insulin ASPART [NovoLOG] 0 unit SQ TID PRN 01/18/17 01/18/17 Insulin Glargine [Lantus] 10 unit SQ HS 01/18/17 01/18/17 Oxaprozin [Daypro] 600 mg PO BID 01/18/17 01/18/17 Promethazine [Phenergan] 25 mg PO Q8HR PRN 01/18/17 01/18/17 Allergies Allergy/AdvReac Type Severity Reaction Status Date / Time acetaminophen [From Percocet] AdvReac See Verified 01/14/17 09:05 Comments Influenza Virus Vaccines AdvReac Hives Verified 01/14/17 09:05 Oxycodone [From Percocet] AdvReac See Verified 01/14/17 09:05 Comments Pneumococcal Vaccine AdvReac Hives Verified 01/14/17 09:05 Zolpidem [From Ambien] AdvReac See Verified 01/14/17 09:05 Comments All systems ED: reviewed and negative except as stated. Past Medical History - Past Medical History Attestation: Yes The following information was validated with the patient. Source: patient Medical history: Reports: arthritis, asthma, diabetes, GERD, hyperlipidemia, hypertension, renal disease, seizures, thyroid disease, other Surgical history: Reports: orthopedic, other, other Psychiatric history: Reports: depression - Social History Smoking Status: Former smoker Smokeless Tobacco Status: No Alcohol use: Reports: none Drug use: Reports: none Physical Exam - General Limitations: no limitations General appearance: alert, in no apparent distress - Head Head exam: normocephalic, normal inspection, other (posterior head scalp contusion) - Eye Eye exam: Present: normal appearance, PERRL, EOMI - ENT ENT exam: normal exam, normal oropharynx, mucous membranes moist - Neck Neck exam: Present: normal inspection, full ROM, trachea midline - Chest Chest inspection: Present: normal inspection, symmetric chest wall rise - Respiratory Respiratory exam: Present: normal lung sounds bilaterally - Cardiovascular Cardiovascular exam: Present: regular rate, normal rhythm, normal heart sounds - Abdominal Exam Abdominal exam: Present: soft, Non-Tender. Absent: tenderness, distention, guarding, rebound, rigidity - Extremities Exam Extremities exam: Present: normal inspection, full ROM. Absent: tenderness, pedal edema - Back Exam Back exam: Present: normal inspection, full ROM. Absent: tenderness - Neurological Exam Neurological exam: Present: alert, oriented X3, CN II-XII intact, normal gait, reflexes normal. Absent: motor sensory deficit - Expanded Neurological Exam Speech: Present: fluid speech Cranial nerves: EOM function (II, III, IV, ): Normal, facial sensation (V): Normal, facial palsy (VII): Normal, spinal accessory function (XI): Normal, tongue deviation (XII): Normal Cerebellar function: finger to nose: Normal, heel to blair: Normal Cerebellar function: normal gait Motor strength - LUE: 5/5 Motor strength - RUE: 5/5 Motor strength - LLE: 5/5 Motor strength - RLE: 5/5 Sensory exam upper extremity: light touch: Normal Sensory exam lower extremity: light touch: Normal Coma Scale Eye Opening: Spontaneous Coma Scale Motor Response: Obeys Commands Coma Scale Verbal Response: Oriented Coma Scale Total: 15 - Psychiatric Psychiatric exam: Present: normal affect, normal mood - Skin Skin exam: Present: warm, dry, intact, normal color Course Course Narrative: Patient seen and examined. Multiple syncopal episodes. Basic labs, chest x-ray , EKG ordered. EKG does show some inferior lateral ST depression when compared with prior EKG done yesterday on 11/28/2016. Concern for cardiogenic syncope. Patient has very small contusion to the back of the head. No loss of consciousness and is not on any blood thinning medications. He just had a head CT done yesterday. No focal neurologic symptoms and patient is acting his baseline self. Do not feel that we need to rescan his head at this time. - Reevaluation(s) Reevaluation #1: Lab work shows mild hyponatremia with a sodium 132. No other lab abnormalities. Chest x-ray unremarkable. We will admit for observation for his syncope. Time: 05:33 Reevaluation #2: Discussed with Dr. Trujillo who has accepted patient for admission pending negative head CT scan. CT head was ordered. It it was negative. Patient admitted to hospitalist service for further evaluation. Time: 07:00 Vital Signs Temperature 98.1 F 01/29/17 02:13 Pulse Rate 90 01/29/17 02:13 Respiratory Rate 18 01/29/17 02:13 Blood Pressure 112/83 01/29/17 02:13 O2 Sat by Pulse Oximetry 99 01/29/17 02:13 Temperature 98.1 F 01/29/17 02:13 Pulse Rate 75 01/29/17 06:47 Respiratory Rate 16 01/29/17 06:47 Blood Pressure 106/82 01/29/17 06:47 O2 Sat by Pulse Oximetry 100 01/29/17 06:47 Oxygen Delivery Oxygen Delivery Room Air Syncope - Medical Records Medical records reviewed: Yes I reviewed the patient's medical records. - Lab Data Lab results reviewed: Yes I reviewed the patient's lab results. Result diagrams: 01/29/17 04:22 01/29/17 04:22 Lab Results 01/29/17 01/29/17 01/29/17 Range/Units 04:22 04:22 04:22 WBC 5.6 (4.3-11.1) K/mcL RBC 5.01 (4.19-5.50) M/mcL Hgb 13.0 (12.9-16.9) g/dL Hct 40.4 (37.5-50.1) % MCV 80.6 L (83.0-100.0) fL MCH 25.9 L (28.0-33.3) pg MCHC 32.2 (31.6-35.5) g/dL RDW 13.7 (11.5-14.5) % Plt Count 212 (140-400) K/mcL MPV 10.6 (9.4-12.4) fL Immature Gran % 0.5 (0-4) % Seg Neutrophils % 50.8 % Lymphocytes % 39.0 % Monocytes % 7.3 % Eosinophils % 2.0 % Basophils % 0.4 % Neutrophils # 2.8 (1.6-8.9) K/mcL Lymphocytes # 2.2 (0.6-4.6) K/mcL Monocytes # 0.4 (0.0-1.3) K/mcL Eosinophils # 0.1 (0.0-0.6) K/mcL Basophils # 0.0 (0.0-0.2) K/mcL D-Dimer (0-500) ng/mLFEU Sodium 132 L (136-145) mEq/L Potassium 4.5 (3.5-4.5) mEq/L Chloride 98 (98-109) mEq/L Carbon Dioxide 26 (19-29) mEq/L BUN 16 (8-26) mg/dL Creatinine 1.18 (0.72-1.25) mg/dL Est GFR ( Amer) > 60 (> 60) Est GFR (Non-Af Amer) > 60 (> 60) BUN/Creatinine Ratio 14 (6-26) Glucose 194 H (70-99) mg/dL Calculated Osmolality 280 (280-300) Calcium 10.5 (8.6-10.8) mg/dL Troponin I 0.00 (0-0.03) ng/mL 01/29/17 Range/Units 04:22 WBC (4.3-11.1) K/mcL RBC (4.19-5.50) M/mcL Hgb (12.9-16.9) g/dL Hct (37.5-50.1) % MCV (83.0-100.0) fL MCH (28.0-33.3) pg MCHC (31.6-35.5) g/dL RDW (11.5-14.5) % Plt Count (140-400) K/mcL MPV (9.4-12.4) fL Immature Gran % (0-4) % Seg Neutrophils % % Lymphocytes % % Monocytes % % Eosinophils % % Basophils % % Neutrophils # (1.6-8.9) K/mcL Lymphocytes # (0.6-4.6) K/mcL Monocytes # (0.0-1.3) K/mcL Eosinophils # (0.0-0.6) K/mcL Basophils # (0.0-0.2) K/mcL D-Dimer 369 (0-500) ng/mLFEU Sodium (136-145) mEq/L Potassium (3.5-4.5) mEq/L Chloride (98-109) mEq/L Carbon Dioxide (19-29) mEq/L BUN (8-26) mg/dL Creatinine (0.72-1.25) mg/dL Est GFR ( Amer) (> 60) Est GFR (Non-Af Amer) (> 60) BUN/Creatinine Ratio (6-26) Glucose (70-99) mg/dL Calculated Osmolality (280-300) Calcium (8.6-10.8) mg/dL Troponin I (0-0.03) ng/mL - Radiology Data Radiology results reviewed: Yes I reviewed the patient's radiology results. Chest X-Ray 01/29/17 03:49 IMPRESSION: No acute cardiopulmonary process. D/ / Justin Simeon MD / Justin Simeon MD Interpreting Provider: Justin Simeon MD - EKG Data EKG attestation: Yes I reviewed and interpreted this EKG. EKG results narrative: EKG done at 216 shows normal sinus rhythm with a rate of 90 bpm. does show some inferior lateral ST depression when compared with prior EKG done yesterday on 11/28/2016. No acute ST elevation. Normal axis. Repeat EKG done at 458 shows normal sinus rhythm with a rate of [address] elevation or depression. Normal axis. Attestation Statement - Attestation Attestation: I examined this patient and my medical decision-making was reviewed with the Resident Physician. I agree with the documented findings, disposition and treatment plan as described except to the extent set forth below. Patient to the ED after syncopal episode. Had another today where he struck the back of his head. He has been seen and admitted here. He has been seen by cardiology. On evaluation here he is awake and alert. Neurologically intact moving all charities. Some tenderness to the occipital scalp. No hematomas. No cervical spine tenderness. Plan. EKG here has some ST depressions. They did resolve by the time the second EKG was repeated. Troponin is negative. He is chest pain-free. Admitted for further cardiac workup.
[2017-01-29] MEDS ORDERED: Aspirin 81 MG TAB.CHEW PO STA (05:24)
--- NOTE | 2017-01-29 09:05 | Internal Med History&Physical ---
Date of Encounter: 01/29/17 Time of Encounter: 09:03 Assessment and Plan (1) Near syncope Current visit: No Status: Acute Does not appear to be true seizures. I think the patient needs a sleep study ruled out sleep disorder that can be associated with these drop attacks. Also check an EEG as he has history of epilepsy. Will check orthostatic vital signs. May benefit from tilt table test. He mentioned he had one several years ago. He supposed to have loop recorder placed for possibility of arrythmia. 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 Rodriguez is a 51 year old male presents the emergency room today after a fall. Patient has a history of recurrent falls which according to his description does not appear to be syncopal episodes. Patient describes episodes where he loses tone of all his muscles and fall down on his back without loss of consciousness. He denies any prodrome prior to these faults. No dizziness lightheadedness chest pain nausea or palpitations prior to these episodes. Patient mentioned that he was extensively worked up before without a clear explanation provided. He was due to have loop recorder placed to see if he has any arrhythmias responsible for this. He denies any reason febrile illness cough expectoration fever chills diarrhea or urinary symptoms. He denies any chest pain. He denies any focal weakness. Patient mentioned that he has sleep apnea. He mentioned that he had sleep studies before has not been diagnosed with other formal sleep disorders like narcolepsy or so Past Med Surg Social Fam HX - Past Medical History Medical history: arthritis, asthma, diabetes, GERD, hyperlipidemia, hypertension , renal disease, seizures, thyroid disease, other Psychiatric history: depression - Past Surgical History Surgical History: orthopedic, other, other - Social History Smoking Status: Former smoker Smokeless Tobacco Status: No Alcohol use: none Drug use: none - Family History Father Living Status: Still Living Hx Family Cardiac Disorders: Yes (bypass, pacer, stents) Hx Family Endocrine Disorder: Yes (dm) Internal Medicine - H&P: Meds Atorvastatin Calcium [Lipitor] 80 mg PO DAILY 12/18/15 [History] FLUoxetine HCl [Prozac] 80 mg PO QAM 12/18/15 [History] Famotidine [Pepcid] 40 mg PO HS 12/18/15 [History] Gabapentin [Neurontin] 200 mg PO BID 12/18/15 [History] Imipramine HCl [Tofranil] 50 mg PO HS 12/18/15 [History] LORazepam [Ativan] 0.5 mg PO HS 12/18/15 [History] Liraglutide [Victoza 2-Norman] 1.2 mg SQ QAM 12/18/15 [History] Lisinopril [Zestril] 20 mg PO BID 12/18/15 [History] Meclizine HCl [Verticalm] 25 mg PO DAILY 12/18/15 [History] Metformin HCl [Glucophage] 1,000 mg PO QPM 12/18/15 [History] Nitroglycerin [Nitrostat] 0.4 mg SL AD PRN 12/18/15 [History] Onabotulinumtoxina [Botox] 200 unit IM [id number] 12/18/15 [History] Pantoprazole Sodium [Protonix] 40 mg PO BID 12/18/15 [History] Primidone [Mysoline] 50 mg PO HS 12/18/15 [History] SUMAtriptan Succinate [Imitrex] 100 mg PO AD PRN 12/18/15 [History] Tamsulosin [Flomax] 0.4 mg PO HS 12/18/15 [History] Topiramate [Topamax] 150 mg PO BID 12/18/15 [History] Ziprasidone HCl [Geodon] 120 mg PO HS 12/18/15 [History] amLODIPine [Norvasc] 5 mg PO DAILY 12/18/15 [History] Carbidopa/Levodopa 25 [Sinemet 25] 1 each PO BID 12/19/15 [History] Divalproex (12 HR) [Depakote (12 HR)] 1,000 mg PO BID 12/19/15 [History] Fenofibrate [Lofibra] 160 mg PO DAILY 12/19/15 [History] Amitriptyline [Elavil] 20 mg PO HS 01/18/17 [History] Butalbital/Aspirin/Caffeine [Fiorinal 50-325-40 mg Capsule] 1 cap PO QID PRN [History] Dexlansoprazole [Dexilant] 60 mg PO DAILY 01/18/17 [History] Insulin ASPART [NovoLOG] 0 unit SQ TID PRN 01/18/17 [History] Insulin Glargine [Lantus] 10 unit SQ HS 01/18/17 [History] Oxaprozin [Daypro] 600 mg PO BID 01/18/17 [History] Promethazine [Phenergan] 25 mg PO Q8HR PRN 01/18/17 [History] 3 Allergy/AdvReac Type Severity Reaction Status Date / Time acetaminophen [From Percocet] AdvReac See Verified 01/14/17 09:05 Comments Influenza Virus Vaccines AdvReac Hives Verified 01/14/17 09:05 Oxycodone [From Percocet] AdvReac See Verified 01/14/17 09:05 Comments Pneumococcal Vaccine AdvReac Hives Verified 01/14/17 09:05 Zolpidem [From Ambien] AdvReac See Verified 01/14/17 09:05 Comments All Systems PM: A 10-system review of systems was performed and is negative for pertinent findings except as documented above in the HPI. Review of systems: 10 point review of systems is negative except for HPI - Constitutional Vitals: Temp Pulse Resp BP Pulse Ox 97.5 F L 75 18 112/78 100 01/29/17 08:00 01/29/17 08:00 01/29/17 08:00 01/29/17 08:00 01/29/17 08:00 Exam: Gen.: patient is alert oriented times 3 cardiac: normal S1 S2 no additional sounds or murmurs chest: no active wheezing or bronchial breathing abdomen soft nontender nondistended normal bowel sounds lower extremity no swelling. Neuro: no new focal deficits Internal Med - H&P Results - Labs CBC & Chem 7: 01/29/17 04:22 01/29/17 04:22
[2017-01-29] MEDS: Aspirin 81 MG TAB.CHEW PO SCH (10:15)
[2017-01-29] MEDS: Insulin LISPRO 300 UNITS/3 ML VIAL SQ SCH ×2 (11:30→16:35)
--- NOTE | 2017-01-29 15:03 | Neurology - Consult Note ---
Date of Encounter: 01/29/17 Time of Encounter: 09:50 Assessment and Plan (1) Near syncope Current Visit: No Status: Acute This patient was been having these multiple episodes of falls as well as near syncopal episode sometime he does consciousness and sometimes he do not most of them seems to be happening when he is extending her walking and never happened when he is laying down or in the bed. He did have an history of seizure disorder but these description are not typical of the seizures especially no generalized tonic-clonic activity noted on associated with these events. Strongly suspect that these are cardiogenic in nature and he is already been evaluated and supposed to have a loop recorder I strongly suggest that we should proceed with that as is scheduled. At the same time check for other underlying metabolic conditions particularly for any orthostatic hypo-tension as perhaps the main reason for these symptoms. (2) Seizure disorder Current Visit: No Status: Chronic Patient has an history of seizure disorder and has been on medication including Depakote and Topamax has been taking for long times suggested to continue on them at this time I do not think that we need to make any adjustment particularly there is no evidence that he had any breakthrough seizures EEG probably would not provide us any new information, as he already had a establish diagnosis and on medication and no evidence of any breakthrough seizures (3) NAKIA (obstructive sleep apnea) Current Visit: No Status: Chronic Patient did have a history of sleep apnea perhaps may need repeat sleep studies that could be done as an outpatient in particular to look for any evidence of other associated sleep disorder particularly of narcolepsy (4) Tremors of nervous system Current Visit: Yes Status: Acute Patient also has significant tremors in the past and has been evaluated by neurology as an outpatient and has been taking Sinemet with significant improvement in his symptoms, and continued to be on medication which makes me wonder that perhaps he may have some early sign of parkinsonism especially when he is responding so well to the treatment. This patient could also have associated dysautonomia and at the same time has a history of frequent falls for no obvious reason. If his cardiac workup is negative he need to be evaluated by neurology as an outpatient as he is already be established suggested that he should continue to follow up with them History of Present Illness HPI: Mr. Rodriguez is a 51 year old male with history of Seizures but not seizures for some time, [resented to emergency room today after a fall. Patient has a history of recurrent falls, and new passingout spells, Patient describes episodes where he loses tone of all his muscles and fall down on his back without loss of consciousness. He denies any preceding symptoms, No dizziness lightheadedness chest pain nausea or palpitations prior to these episodes. he had extensively worked up but all were negative, He was due to have loop recorder placed in , He denies any reason febrile illness cough expectoration fever chills diarrhea or urinary symptoms. He denies any chest pain. He denies any focal weakness. Patient mentioned that he has sleep apnea. had sleep studies but not diagnosed with narcolepsy. Past Med Surg Social Fam HX - Past Medical History Medical history: arthritis, asthma, diabetes, GERD, hyperlipidemia, hypertension , renal disease, seizures, thyroid disease, other Psychiatric history: depression - Past Surgical History Surgical History: orthopedic, other, other - Social History Smoking Status: Former smoker Smokeless Tobacco Status: No Alcohol use: none Drug use: none - Family History Father Living Status: Still Living Hx Family Cardiac Disorders: Yes (bypass, pacer, stents) Hx Family Endocrine Disorder: Yes (dm) Medications and Allergies Atorvastatin Calcium [Lipitor] 80 mg PO DAILY 12/18/15 [History] FLUoxetine HCl [Prozac] 80 mg PO QAM 12/18/15 [History] Famotidine [Pepcid] 40 mg PO HS 12/18/15 [History] Gabapentin [Neurontin] 200 mg PO BID 12/18/15 [History] Imipramine HCl [Tofranil] 50 mg PO HS 12/18/15 [History] LORazepam [Ativan] 0.5 mg PO HS 12/18/15 [History] Liraglutide [Victoza 2-Norman] 1.2 mg SQ QAM 12/18/15 [History] Lisinopril [Zestril] 20 mg PO BID 12/18/15 [History] Meclizine HCl [Verticalm] 25 mg PO DAILY 12/18/15 [History] Metformin HCl [Glucophage] 1,000 mg PO QPM 12/18/15 [History] Nitroglycerin [Nitrostat] 0.4 mg SL AD PRN 12/18/15 [History] Onabotulinumtoxina [Botox] 200 unit IM [id number] 12/18/15 [History] Pantoprazole Sodium [Protonix] 40 mg PO BID 12/18/15 [History] Primidone [Mysoline] 50 mg PO HS 12/18/15 [History] SUMAtriptan Succinate [Imitrex] 100 mg PO AD PRN 12/18/15 [History] Tamsulosin [Flomax] 0.4 mg PO HS 12/18/15 [History] Topiramate [Topamax] 150 mg PO BID 12/18/15 [History] Ziprasidone HCl [Geodon] 120 mg PO HS 12/18/15 [History] amLODIPine [Norvasc] 5 mg PO DAILY 12/18/15 [History] Carbidopa/Levodopa [Sinemet ] 1 each PO BID 12/19/15 [History] Divalproex (12 HR) [Depakote (12 HR)] 1,000 mg PO BID 12/19/15 [History] Fenofibrate [Lofibra] 160 mg PO DAILY 12/19/15 [History] Amitriptyline [Elavil] 20 mg PO HS 01/18/17 [History] Butalbital/Aspirin/Caffeine [Fiorinal 50-325-40 mg Capsule] 1 cap PO QID PRN [History] Dexlansoprazole [Dexilant] 60 mg PO DAILY 01/18/17 [History] Insulin ASPART [NovoLOG] 0 unit SQ TID PRN 01/18/17 [History] Insulin Glargine [Lantus] 10 unit SQ HS 01/18/17 [History] Oxaprozin [Daypro] 600 mg PO BID 01/18/17 [History] Promethazine [Phenergan] 25 mg PO Q8HR PRN 01/18/17 [History] 3 Allergy/AdvReac Type Severity Reaction Status Date / Time acetaminophen [From Percocet] AdvReac See Verified 01/14/17 09:05 Comments Influenza Virus Vaccines AdvReac Hives Verified 01/14/17 09:05 Oxycodone [From Percocet] AdvReac See Verified 01/14/17 09:05 Comments Pneumococcal Vaccine AdvReac Hives Verified 01/14/17 09:05 Zolpidem [From Ambien] AdvReac See Verified 01/14/17 09:05 Comments All Systems: A 10-system review of systems was performed and is negative for pertinent findings except as documented above in the HPI. 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 crops, hip flexors, tibialis Anterior, quadriceps, toe extension (EHL), plantarflexion Motor examination - left side: 5/5: deltoids, biceps, triceps, wrist flexion, wrist extension, hip flexors, farmer tree fruit and nut crops, quadriceps, tibialis Anterior, toe extension (EHL), plantarflexion Mental Status Examination: awake, alert, oriented to person, oriented to place, oriented to time, follows commands appropriately, answers questions appropriately, no agnosia, no aphasia, no aproxia Cranial nerve examination: PERRL, EOMI, visual hobson intact, corneal reflexes brisk symmetrically, sensory to face intact, mastication intact, no facial asymmetry is present, no dysarthria, hearing is intact symmetrically, soft palate elevates bilaterally upon phonation, gag reflex intact, flexes SCM and trapezius muscles symmetrically with full power, tongue protrudes midline, no atrophy or facial fasiculations present Cerebellar examination: no dysmetria, performs finger to nose and heel to blair symmetrically without ataxia, no gait ataxia, no truncal ataxia, no difficulty with rapid alternating movements Results - Laboratory Findings CBC and BMP: 01/29/17 04:22 01/29/17 04:22 Abnormal lab findings: Abnormal lab results MCV 80.6 fL (83.0-100.0) L 01/29/17 04:22 MCH 25.9 pg (28.0-33.3) L 01/29/17 04:22 Sodium 132 mEq/L (136-145) L 01/29/17 04:22 Glucose 194 mg/dL (70-99) H 01/29/17 04:22 POC Glucose 230 (58-89) H 01/29/17 11:15 Creatine Kinase 29 Units/L (30-200) L 01/29/17 09:18 Consult Discharge Plan - Plan Referrals: Eric Castillo MD [Primary Care Provider] -
[2017-01-29] MEDS: Pantoprazole 40 MG VIAL IVP SCH ×2 (16:35→19:26)
[2017-01-29] MEDS ORDERED: *HR* HYDROmorphone (PF) 1 MG/ML SYRINGE IVP PRN (20:31)
[2017-01-29] MEDS ORDERED: Ketorolac 30 MG/ML VIAL IVP ONE (22:41)
[2017-01-29] MEDS ORDERED: NON-FORMULARY MEDICATION 1 EACH EACH (Pantoprazole Sodium [Protonix] 40 MG) PO SCH (22:45)
[2017-01-29] MEDS ORDERED: ZIPRASIDONE HCL PO SCH (22:45)
[2017-01-29] MEDS ORDERED: NON-FORMULARY MEDICATION 1 EACH EACH (Insulin Glargine [Lantus] 10 UNIT) SQ SCH (22:45)
[2017-01-29] MEDS ORDERED: Insulin DETEMIR 100 UNIT/ML X5UNITS SQ SCH (23:00)
[2017-01-29] MEDS: Divalproex (12 HR) 500 MG TABLET PO SCH (23:36)
[2017-01-29] MEDS: Gabapentin 100 MG CAPSULE PO SCH (23:36)
[2017-01-29] MEDS: Primidone 50 MG TABLET PO SCH (23:37)
[2017-01-29] MEDS: *HR* LORazepam 0.5 MG TABLET PO SCH (23:37)
[2017-01-29] MEDS: Famotidine 20 MG TABLET PO SCH (23:37)
[2017-01-29] MEDS: Topiramate 100 MG TABLET PO SCH (23:37)
[2017-01-30] MEDS: Pantoprazole 40 MG VIAL IVP SCH ×2 (05:27→17:26)
[2017-01-30 06:13] LABS: Basophils % 0.4 %; Eosinophils # 0.2 K/mcL (0.0-0.6); Eosinophils % 3.2 %; Hematocrit 34.8 % (37.5-50.1); Immature Granulocytes % 0.4 % (0-4); Lymphocytes # 1.9 K/mcL (0.6-4.6); Lymphocytes % 40.2 %; Mean Corpuscular HGB Conc 32.8 g/dL (31.6-35.5); Mean Corpuscular Hemoglobin 26.7 pg (28.0-33.3); Mean Corpuscular Volume 81.5 fL (83.0-100.0); Mean Platelet Volume 11.2 fL (9.4-12.4); Monocytes # 0.4 K/mcL (0.0-1.3); Monocytes % 8.3 %; Neutrophils # 2.2 K/mcL (1.6-8.9); Platelet Count 188 K/mcL (140-400); Red Blood Count 4.27 M/mcL (4.19-5.50); Red Cell Distribution Width 13.9 % (11.5-14.5); Segmented Neutrophils % 47.5 %
[2017-01-30 06:16] LABS: Hemoglobin 11.4 g/dL (12.9-16.9)
[2017-01-30 06:17] LABS: BUN/Creatinine Ratio 15 (6-26); Blood Urea Nitrogen 20 mg/dL (8-26); Carbon Dioxide 25 mEq/L (19-29); Chloride 101 mEq/L (98-109); Glucose 242 mg/dL (70-99); Magnesium 1.6 mg/dL (1.6-2.6); Osmolality,Calculated 283 (280-300); Potassium 4.4 mEq/L (3.5-4.5); Sodium 131 mEq/L (136-145); eGFR For African Americans > 60 (> 60); eGFR For Non-African Americans 58 (> 60)
[2017-01-30 06:19] LABS: Calcium 8.9 mg/dL (8.6-10.8)
[2017-01-30] MEDS: Gabapentin 100 MG CAPSULE PO SCH ×2 (08:57→21:25)
[2017-01-30] MEDS: FLUoxetine 20 MG CAPSULE PO SCH (08:57)
[2017-01-30] MEDS: Insulin LISPRO 300 UNITS/3 ML VIAL SQ SCH ×4 (08:57→21:25)
[2017-01-30] MEDS: Carbidopa/Levodopa 25/100 TABLET PO SCH ×2 (08:58→21:25)
[2017-01-30] MEDS: Fenofibrate 54 MG TABLET PO SCH (08:58)
[2017-01-30] MEDS: Topiramate 100 MG TABLET PO SCH ×2 (08:58→21:24)
[2017-01-30] MEDS: Aspirin 81 MG TAB.CHEW PO SCH (08:58)
[2017-01-30] MEDS: Divalproex (12 HR) 500 MG TABLET PO SCH ×2 (08:59→21:25)
[2017-01-30] MEDS ORDERED: amLODIPine 5 MG TABLET PO SCH (09:00)
[2017-01-30] MEDS ORDERED: Lisinopril 20 MG TABLET PO SCH (09:00)
[2017-01-30] MEDS ORDERED: Diclofenac Sodium (24 HR) 100 MG TABLET PO SCH (09:00)
[2017-01-30] MEDS ORDERED: NON-FORMULARY MEDICATION 1 EACH EACH (Dexlansoprazole [Dexilant] 60 MG) PO SCH (09:00)
[2017-01-30] MEDS: VICTOZA 1.2 MG SQ SCH (10:53)
[2017-01-30] MEDS: 0.9 % Sodium Chloride 1,000 ML IVC SCH ×2 (12:20→21:34)
[2017-01-30] MEDS ORDERED: 0.9 % Sodium Chloride 1,000 ML IVC SCH (15:15)
[2017-01-30] MEDS ORDERED: *HR* Dextrose 50 % in Water (Syg) 50 ML SYRINGE IVP PRN ×2 (15:29→17:00)
[2017-01-30] MEDS ORDERED: Dextrose Gel 15 GM PO PRN ×4 (15:29→17:00)
[2017-01-30] MEDS ORDERED: D5% in Water 1,000 ML IVC PRN ×2 (15:29→17:00)
[2017-01-30] MEDS: SUMAtriptan succinate 50 MG TABLET PO PRN (15:39)
--- NOTE | 2017-01-30 15:42 | Internal Med Progress Note ---
Date of Encounter: 01/30/17 Time of Encounter: 15:08 - Assessment and plan (1) Syncope and collapse Current Visit: Yes Status: Acute Assessment and plan: Kris Rodriguez is a 51-year-old male with past medical history diabetes, seizure disorder, hypertension and tremors who presented to [facility] on with complaints of falling and passing out. He was placed in observation status for further workup and treatment. 1. Near syncope with collapse: reports episodes of entire body weakness resulting in falls. Episodes have not been witnessed therefore he is not sure if he has lost consciousness. Had similar symptoms in 2016 with a subsequent event monitoring that found no significant cardiac events. 01/18/2017 echo and bilateral carotids unremarkable. Now with recurrent episodes. Etiology unknown at this time. Evaluated by neurology who does not feel episodes are leading to seizures or secondary to primary neurologic disorder. BP has been soft, borderline while inpatient. This could be contributing to episodes. He is also on multiple psychiatric, sedating medications which could also be contributing to episodes. Continue to monitor on telemetry, check orthostatics. We will discuss LINQ with cardiology 2. Seizure disorder: Per history. Evaluated by neurology who does not suspect current symptoms related to seizure disorder. Continue home AEDs. Depakote level pending. Seizure precautions. 3. Hypertension: Per history but BP has been soft/borderline. Holding home BP medications as he presented with near syncope and collapse. Continue IV fluids. Monitor BP and resume as BP allows. 4. CKD stage III: Cr 1.3. Does not follow with nephrology. Holding home EDILBERTO. Continue IV fluids. Monitor repeat renal function. 5. Diabetes: Per history. Blood sugars uncontrolled. Holding home metformin. High dose SSI. Monitor blood sugar and titrate PRN. Hgb A1c pending 6. Tremors: hx significant tremors in the past and has been evaluated by neurology as an outpatient and has been taking Sinemet with significant improvement in his symptoms. Neurology concern for possible early sign of Parkinson's as he is responding well to Sinemet. Neurology also noted patient could also have associated dysautonomia. He is established with neurologist at [place]. We will need to follow up outpatient. 7. 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 use: with termite control servicer use Qualified Code(s) : E11.8 - Type 2 diabetes mellitus with unspecified complications; Z79.4 - terminal clerk (current) use of insulin (3) NAKIA (obstructive sleep apnea) Current Visit: No Status: Chronic (4) Seizure disorder Current Visit: No Status: Chronic (5) Tremors of nervous system Current Visit: Yes Status: Acute (6) DVT prophylaxis Current Visit: No Status: Acute - Constitutional Vitals: Temp Pulse Resp BP Pulse Ox 97.5 F L 74 17 102/67 95 01/30/17 10:59 01/30/17 10:59 01/30/17 10:59 01/30/17 10:59 01/30/17 10:59 Internal Medicine: Result - Labs CBC & Chem 7: 01/30/17 04:29 01/30/17 04:29 Labs: Short CBC 01/30/17 Range/Units 04:29 WBC 4.7 (4.3-11.1) K/mcL Hgb 11.4 L D (12.9-16.9) g/dL Hct 34.8 L (37.5-50.1) % Plt Count 188 (140-400) K/mcL Neutrophils # 2.2 (1.6-8.9) K/mcL BMP 01/30/17 04:29 Sodium 131 L Potassium 4.4 Chloride 101 Carbon Dioxide 25 BUN 20 Creatinine 1.31 H Glucose 242 H Calcium 8.9 D Cardiac Enzymes 01/29/17 Range/Units 16:20 Troponin I 0.01 (0-0.03) ng/mL - ABG Interpretation ABG results: PT/INR, D-dimer D-Dimer 369 ng/mLFEU (0-500) 01/29/17 04:22 - VTE Documentation of Mechanical Device: Intermittent pneumatic compression device Consult Discharge Plan - Plan Referrals: Eric Castillo MD [Primary Care Provider] -
[2017-01-30 19:02] LABS: Amphetamine Screen,Urine Negative ng/mL (Cutoff=1000); Barbiturate Screen,Urine Positive ng/mL (Cutoff=200); Benzodiazepines Screen,Urine Negative ng/mL (Cutoff=200); Cannabinoid Screen,Urine Negative ng/mL (Cutoff = 50); Cocaine Screen,Urine Negative ng/mL (Cutoff= 300); Opiate Screen,Urine Negative ng/mL (Cutoff=300); Phencyclidine Screen,Urine Negative ng/mL (Cutoff=25)
[2017-01-30] MEDS: *HR* Heparin 5,000 UNIT/ML VIAL SQ SCH (21:25)
[2017-01-30] MEDS: Primidone 50 MG TABLET PO SCH (21:25)
[2017-01-30] MEDS: Famotidine 20 MG TABLET PO SCH (21:25)
[2017-01-30] MEDS: *HR* LORazepam 0.5 MG TABLET PO SCH (21:25)
[2017-01-31 02:43] LABS: Hematocrit 33.4 % (37.5-50.1); Immature Platelets 6.4 % (1.1-6.1); Mean Corpuscular HGB Conc 32.9 g/dL (31.6-35.5); Mean Corpuscular Volume 81.9 fL (83.0-100.0); Mean Platelet Volume 10.5 fL (9.4-12.4); Red Blood Count 4.08 M/mcL (4.19-5.50); Red Cell Distribution Width 13.7 % (11.5-14.5)
[2017-01-31 02:58] LABS: Alanine Aminotransferase 8 Units/L (0-55); Albumin/Globulin Ratio 0.8 (1.1-2.2); Alkaline Phosphatase 76 Units/L (38-126); Aspartate Amino Transferase 10 Units/L (5-34); BUN/Creatinine Ratio 15 (6-26); Bilirubin,Total 0.3 mg/dL (0.2-1.2); Blood Urea Nitrogen 21 mg/dL (8-26); Calcium 8.2 mg/dL (8.6-10.8); Carbon Dioxide 19 mEq/L (19-29); Chloride 103 mEq/L (98-109); Globulin 3.6 g/dL (2.4-3.5); Glucose 311 mg/dL (70-99); Osmolality,Calculated 285 (280-300); Sodium 130 mEq/L (136-145); Total Protein 6.6 g/dL (6.0-8.3); eGFR For African Americans > 60 (> 60); eGFR For Non-African Americans 53 (> 60)
[2017-01-31 02:59] LABS: Potassium 4.9 mEq/L (3.5-4.5)
[2017-01-31] MEDS: *HR* Heparin 5,000 UNIT/ML VIAL SQ SCH ×3 (06:10→22:51)
[2017-01-31] MEDS: Pantoprazole 40 MG VIAL IVP SCH ×2 (06:10→17:25)
[2017-01-31] MEDS: 0.9 % Sodium Chloride 1,000 ML IVC SCH ×2 (09:03→17:24)
[2017-01-31] MEDS: FLUoxetine 20 MG CAPSULE PO SCH (09:05)
[2017-01-31] MEDS: Gabapentin 100 MG CAPSULE PO SCH ×2 (09:05→22:25)
[2017-01-31] MEDS: VICTOZA 1.2 MG SQ SCH (09:06)
[2017-01-31] MEDS: Carbidopa/Levodopa 25/100 TABLET PO SCH ×2 (09:06→22:24)
[2017-01-31] MEDS: Fenofibrate 54 MG TABLET PO SCH (09:06)
[2017-01-31] MEDS: Divalproex (12 HR) 500 MG TABLET PO SCH ×2 (09:06→22:25)
[2017-01-31] MEDS: Aspirin 81 MG TAB.CHEW PO SCH (09:06)
[2017-01-31] MEDS: Topiramate 100 MG TABLET PO SCH ×2 (09:06→22:24)
[2017-01-31] MEDS: Insulin LISPRO 300 UNITS/3 ML VIAL SQ SCH ×5 (09:10→22:25)
--- NOTE | 2017-01-31 12:29 | Electrophysiology Consult Note ---
<Kingsley Mancera - Last Filed: 01/31/17 12:37> Date of Encounter: 01/31/17 Time of Encounter: 12:30 Assessment and Plan (1) Syncope and collapse Current Visit: Yes Status: Acute Per Electrophysiology: Intermittent episodes of syncopal events the past 5 years. Has known history of seizure disorder and has biggest nerve stimulator. Seen by neurology during hospital stay with recommendations to consider loop recorder insertion. Telemetry reviewed with no significant events during hospital stay. Recent echo 12/2016 showed EF 50-55%, mild diastolic dysfunction, no significant valvular dysfunction. Negative nuclear stress 12/2016. Bilateral carotid duplex essentially normal completed December 2016. Completed event monitor about one year ago with no significant findings. Troponins negative 3. Current systolic blood pressures 90s to 110s. Symptoms seem suspicious to be orthostatic in nature-- orthos reviewed and BPs appear overall unchanged with positonal changes (all low) and no heart rates documented. Recommend obtain proper orthos. Patient discussed and reviewed by Dr. Nitesh Tovar, we'll proceed with loop insertion today. Electrophysiology will sign off, reconsult as needed, follow-up scheduled (2) CKD (chronic kidney disease), stage III Current Visit: No Status: Chronic Per Cardiology: Known history of CK D stage IIIa, remains currently around baseline. (3) Status post VNS (vagus nerve stimulator) placement Current Visit: No Status: Chronic Per Cardiology: Recommend follow-up with neurology. Discussion w patient/family: The assessment and plan as outlined above was discussed with the patient who expressed understanding and agreement. All questions were answered. Thank you for involving us in the care of your patient. Please call with any questions. History of Present Illness Consult date: 01/31/17 Requesting physician: Ariadne Diamond Consult reason: Syncope, Eval for Loop Insertion Chief complaint: Passing out History of present illness: Mr. Rodriguez is a 51 year old male with a relevant past medical history of diabetes mellitus type 2, GERD, hyperlipidemia, hypertension, CK D, history of seizure disorder with vagus nerve stimulator, hypothyroidism, and depression. Cardiology consult for recurrent syncopal events and for evaluation of loop recorder insertion. Patient reports intermittent episodes of syncope for the past 5 years. He confirms history of seizures and past history of syncopal events with loss of bowel or bladder. He does report vagus nerve stimulator in place. He confirms hospitalization a few weeks ago for syncopal events occurring during nocturnal hours walking to the bathroom or after standing from sitting at his computer. He does indicate he does dangle his feet and stand slowly. He denies any symptoms that precipitated event reports he awakens on the floor. He reports that this has occurred 8-9 more times since last hospital stay. He denies any dizziness, blurred vision, headaches, chest pain, palpitations. Reports all episodes unwitnessed. Denies any loss of bowel or bladder. Denies any knowledge of any seizure-like activity. Has been seen by neurology recommendations to consider loop recorder insertion. Previous records reviewed from medications to consider repeat event versus loop recorder. Patient reports he is willing to proceed with insertion if deemed appropriate. Past Med Surg Social Fam HX - Past Medical History Attestation: Yes The following information was validated with the patient. Source: patient, old records reviewed Medical history: arthritis, asthma, diabetes, GERD, hyperlipidemia, hypertension , renal disease, seizures, thyroid disease, other Psychiatric history: depression - Past Surgical History Surgical History: orthopedic, other, other - Social History Smoking Status: Former smoker Smokeless Tobacco Status: No Alcohol use: none Drug use: none - Family History Father Living Status: Still Living Hx Family Cardiac Disorders: Yes (bypass, pacer, stents) Hx Family Endocrine Disorder: Yes (dm) Medications and Allergies Atorvastatin Calcium [Lipitor] 80 mg PO DAILY 12/18/15 [History] FLUoxetine HCl [Prozac] 80 mg PO QAM 12/18/15 [History] Famotidine [Pepcid] 40 mg PO HS 12/18/15 [History] Gabapentin [Neurontin] 200 mg PO BID 12/18/15 [History] Imipramine HCl [Tofranil] 50 mg PO HS 12/18/15 [History] LORazepam [Ativan] 0.5 mg PO HS 12/18/15 [History] Liraglutide [Victoza 2-Norman] 1.2 mg SQ QAM 12/18/15 [History] Lisinopril [Zestril] 20 mg PO BID 12/18/15 [History] Meclizine HCl [Verticalm] 25 mg PO DAILY 12/18/15 [History] Metformin HCl [Glucophage] 1,000 mg PO QPM 12/18/15 [History] Nitroglycerin [Nitrostat] 0.4 mg SL AD PRN 12/18/15 [History] Onabotulinumtoxina [Botox] 200 unit IM [id number] 12/18/15 [History] Pantoprazole Sodium [Protonix] 40 mg PO BID 12/18/15 [History] Primidone [Mysoline] 50 mg PO HS 12/18/15 [History] SUMAtriptan Succinate [Imitrex] 100 mg PO AD PRN 12/18/15 [History] Tamsulosin [Flomax] 0.4 mg PO HS 12/18/15 [History] Topiramate [Topamax] 150 mg PO BID 12/18/15 [History] Ziprasidone HCl [Geodon] 120 mg PO HS 12/18/15 [History] amLODIPine [Norvasc] 5 mg PO DAILY 12/18/15 [History] Carbidopa/Levodopa [Sinemet ] 1 each PO BID 12/19/15 [History] Divalproex (12 HR) [Depakote (12 HR)] 1,000 mg PO BID 12/19/15 [History] Fenofibrate [Lofibra] 160 mg PO DAILY 12/19/15 [History] Amitriptyline [Elavil] 20 mg PO HS 01/18/17 [History] Butalbital/Aspirin/Caffeine [Fiorinal 50-325-40 mg Capsule] 1 cap PO QID PRN [History] Dexlansoprazole [Dexilant] 60 mg PO DAILY 01/18/17 [History] Insulin ASPART [NovoLOG] 0 unit SQ TID PRN 01/18/17 [History] Insulin Glargine [Lantus] 10 unit SQ HS 01/18/17 [History] Oxaprozin [Daypro] 600 mg PO BID 01/18/17 [History] Promethazine [Phenergan] 25 mg PO Q8HR PRN 01/18/17 [History] 3 Allergy/AdvReac Type Severity Reaction Status Date / Time acetaminophen [From Percocet] AdvReac See Verified 01/14/17 09:05 Comments Influenza Virus Vaccines AdvReac Hives Verified 01/14/17 09:05 Oxycodone [From Percocet] AdvReac See Verified 01/14/17 09:05 Comments Pneumococcal Vaccine AdvReac Hives Verified 01/14/17 09:05 Zolpidem [From Ambien] AdvReac See Verified 01/14/17 09:05 Comments All Systems Review: A 10-system review of systems was performed and is negative for pertinent findings except as documented above in the HPI. - Cardiovascular Cardiovascular: as per HPI, syncope Physical Examination Vital Signs, Last 4 Hours Temp Pulse Resp BP Pulse Ox 01/31/17 11:53 97.8 F 87 16 105/67 96 01/31/17 09:16 97 Selected Entries 01/31/17 03:49 Blood Pressure [Orthostatic Lying Left Arm] 87/61 Blood Pressure [Orthostatic Sitting Left Arm] 99/66 Blood Pressure [Orthostatic Standing Left Arm] 93/62 General: Conversant, No Apparent Distress HEENT: Atraumatic, Normocephaly, Mucus Membranes Moist Neck: No JVD, Normal carotid pulses Cardiac: Reg Rate and Rhythm, Normal S1 and S2, No Murmur Lungs: Normal Breath Sounds, No Wheeze, Rales, Rhonchi Neuro: Alert and responsive, No focal deficits noted Abdomen: Soft, Non-Tender Skin: No rashes noted on visualized skin Musculoskeletal: No Chest Wall Tenderness Extremities: No Clubbing, No Cyanosis, No Edema, Normal Pulses Results 01/31/17 02:35 01/31/17 02:35 Lab Results Laboratory Tests 01/29/17 01/31/17 04:22 02:35 D-Dimer 369 Creatinine 1.41 H Est GFR (Non-Af Amer) 53 L ITS Impressions Chest X-Ray 01/29/17 03:49 IMPRESSION: No acute cardiopulmonary process. D/ / Justin Simeon MD / Justin Simeon MD Interpreting Provider: Justin Simeon MD Head CT 01/29/17 05:57 IMPRESSION: No acute intracranial abnormality. D/ / Levon Sheehan MD / Levon Sheehan MD Interpreting Provider: Levon Sheehan MD Active Medications Amitriptyline HCl (Elavil) 20 mg PO HS [facility] Stop: 07/31/17 22:34 Last Admin: 01/30/17 21:24 Dose: 20 mg Aspirin (Aspirin) 81 mg PO DAILY [facility] Stop: 07/31/17 09:01 Last Admin: 01/31/17 09:06 Dose: 81 mg Atorvastatin Calcium (Lipitor) 80 mg PO DAILY [facility] Stop: 07/31/17 09:01 Last Admin: 01/31/17 09:06 Dose: 80 mg Carbidopa/Levodopa (Sinemet) 1 each PO BID [facility] Stop: 08/01/17 09:01 Last Admin: 01/31/17 09:06 Dose: 1 each Dextrose/Water (Dextrose 50% (Syg)) 25 ml IVP AD PRN PRN Reason: Hypoglycemia Stop: 08/01/17 17:01 Divalproex Sodium (Depakote (12 Hr)) 1,000 mg PO BID [facility] Stop: 07/31/17 22:46 Last Admin: 01/31/17 09:06 Dose: 1,000 mg Famotidine (Pepcid) 40 mg PO HS [facility] Stop: 07/31/17 22:46 Last Admin: 01/30/17 21:25 Dose: 40 mg Fenofibrate (Tricor) 162 mg PO DAILY [facility] Stop: 08/01/17 09:01 Last Admin: 01/31/17 09:06 Dose: 162 mg Fluoxetine HCl (Prozac) 80 mg PO QAM [facility] Stop: 08/01/17 09:01 Last Admin: 01/31/17 09:05 Dose: 80 mg Gabapentin (Neurontin) 200 mg PO BID [facility] Stop: 07/31/17 22:46 Last Admin: 01/31/17 09:05 Dose: 200 mg Glucagon (Glucagen) 1 mg IM ONCE PRN PRN Reason: Hypoglycemia Stop: 08/01/17 15:30 Glucose (Gluctose) 15 gm PO ONCE PRN PRN Reason: Hypoglycemia Stop: 08/01/17 17:01 Glucose (Gluctose) 30 gm PO ONCE PRN PRN Reason: Hypoglycemia Stop: 08/01/17 17:01 Heparin Sodium (Porcine) (Heparin) 5,000 unit SQ Q8HCO [facility] Stop: 08/01/17 22:01 Last Admin: 01/31/17 06:10 Dose: 5,000 unit Sodium Chloride (0.9 % Sodium Chloride) 1,000 mls @ 100 mls/hr IVC .Q10H [facility] Stop: 08/01/17 10:46 Last Admin: 01/31/17 09:03 Dose: 100 mls/hr Dextrose (Dextrose 5%) 1,000 mls @ 100 mls/hr IVC .Q10H PRN PRN Reason: HYPOGLYCEMIA Stop: 08/01/17 17:01 Imipramine HCl (Tofranil) 50 mg PO HS [facility] Stop: 08/01/17 21:01 Last Admin: 01/30/17 21:24 Dose: 50 mg Insulin Human Lispro (Humalog) 0 units SQ HS [facility] PRN Reason: Protocol Stop: 08/01/17 21:01 Last Admin: 01/30/17 21:25 Dose: Not Given Insulin Human Lispro (Humalog) 0 units SQ TIDAC [facility] PRN Reason: Protocol Stop: 08/01/17 17:01 Last Admin: 01/31/17 12:32 Dose: 8 units Lorazepam (Ativan) 0.5 mg PO HS [facility] Stop: 07/31/17 22:46 Last Admin: 01/30/17 21:25 Dose: 0.5 mg Meclizine HCl (Antivert) 25 mg PO DAILY [facility] Stop: 08/01/17 09:01 Last Admin: 01/31/17 09:06 Dose: 25 mg Pantoprazole Sodium (Protonix) 40 mg IVP Q12HR [facility] Stop: 07/31/17 16:31 Last Admin: 01/31/17 06:10 Dose: 40 mg Pharmacy Profile Note (Patient Taking Own Medication) 1 each SQ QAM [facility] Stop: 08/01/17 09:01 Last Admin: 01/31/17 09:06 Dose: Not Given Primidone (Mysoline) 50 mg PO HS [facility] Stop: 07/31/17 22:46 Last Admin: 01/30/17 21:25 Dose: 50 mg Promethazine HCl (Phenergan) 25 mg PO Q8HR PRN PRN Reason: Nausea Stop: 07/31/17 22:32 Sumatriptan Succinate (Imitrex) 100 mg PO AD PRN PRN Reason: Migraine Headache Last Admin: 01/30/17 15:39 Dose: 100 mg Tamsulosin HCl (Flomax) 0.4 mg PO HS [facility] PRN Reason: Protocol Stop: 07/31/17 22:46 Last Admin: 01/30/17 21:24 Dose: 0.4 mg Topiramate (Topamax) 150 mg PO BID [facility] Stop: 07/31/17 22:46 Last Admin: 01/31/17 09:06 Dose: 150 mg Ziprasidone 80 mg/ Ziprasidone (40 mg) 120 mg PO HS [facility] Stop: 07/31/17 23:01 Last Admin: 01/30/17 21:23 Dose: 120 mg - Imaging and Cardiology Chest Xray: report reviewed Stress Test: report reviewed Echo: report reviewed (Impressions: LVEF 50-55%. There is evidence of mild diastolic dysfunction of the left ventricle. Normal right ventricular size and function. No significant valvular dysfunction. No pulmonary hypertension by TR gradient. Left Ventricular Wall Motion: Rest Echo Findings All wall segments showed normal motion.) - EKG Interpretation EKG results cardiology: personally reviewed (Comparable to baseline ECG), normal ECG, sinus rhythm, other (24 hr tele reviewed with avg HR 82, sinus rhythm with no significant events or pauses noted.) Consult Discharge Plan - Plan Referrals: Eric Castillo MD [Primary Care Provider] - <Nitesh Tovar Edi - Last Filed: 01/31/17 13:05> Date of Encounter: 01/31/17 - Attending Attestation I have personally performed a face to face evaluation on this patient. I have reviewed and agree with the care plan. History and Exam by me shows: Syncope of uncertain etiology, cardiac workup has been negative. Previous event monitor was negative. Assessment and Plan Discussion w patient/family: The assessment and plan as outlined above was discussed with the patient and/or family members who expressed understanding and agreement. All questions were answered. Thank you for involving us in the care of your patient. Please call with any questions. History of Present Illness History of present illness: Mr. Rodriguez is a 51 year old male All Systems Review: A 10-system review of systems was performed and is negative for pertinent findings except as documented above in the HPI. Physical Examination Vital Signs, Last 4 Hours Temp Pulse Resp BP Pulse Ox 01/31/17 11:53 97.8 F 87 16 105/67 96 01/31/17 09:16 97 Results 01/31/17 02:35 01/31/17 02:35 Lab Results 01/31/17 01/31/17 02:35 02:35 WBC 4.1 L Hgb 11.0 L Hct 33.4 L Plt Count 200 Sodium 130 L Potassium 4.9 H Chloride 103 Carbon Dioxide 19 BUN 21 Creatinine 1.41 H Glucose 311 H Calcium 8.2 L Total Bilirubin 0.3 AST 10 ALT 8 Alkaline Phosphatase 76
--- NOTE | 2017-01-31 13:05 | Nephrology Consult Note ---
Date of Encounter: 01/31/17 Time of Encounter: 13:02 Assessment and Plan (1) Acute kidney injury Current Visit: Yes Status: Acute 51-year-old uncontrolled type II diabetic has elevated creatinine at 1.41 with a GFR of 53. Review of his laboratory results demonstrates he has had normal GFR greater than 60 and a creatinine around 1.10. No recent urinalysis. His lisinopril was held with his rising creatinine. - Patient is uncontrolled type II diabetic who presents with slight elevation in his creatinine slight diminish in his GFR setting of hospitalization. He is high risk for progressive renal disease as he is uncontrolled type II diabetic is at risk of developing diabetic nephropathy. His current presentation is likely prerenal, review of his urinary output demonstrates poor recording. Plan: - Urinalysis with microscopy - Retroperitoneal ultrasound - Urine creatinine, urine sodium - Serum uric acid level - Strict intake and output monitoring, daily standing weights - Avoid nephrotoxic medications and renally dose antibiotics - Continue to hold lisinopril and blood pressure stable. - Obtain appropriate glucose control (2) Obesity (BMI 30-39.9) Current Visit: No Status: Chronic 51-year-old male with central obesity and BMI of 34.0. Mr. Rodriguez of benefit from dietary modifications to include a DASH diet, moderate exercise and lifestyle changes to improve longevity and obtain better control of his diabetes. (3) DM type 2 (diabetes mellitus, type 2) Current Visit: No Status: Chronic Mr. Rodriguez 51-year-old male with uncontrolled type 2 diabetes. A1c in the outpatient setting 2 months ago was greater than 10. His current glucoses are around 250-300. Plan: - Management per primary team with goal glucose below 140. - Diabetic diet Qualifiers: Diabetes mellitus complication status: with unspecified complications Diabetes mellitus fci insulin use: with long term care administrator use Qualified Code(s) : E11.8 - Type 2 diabetes mellitus with unspecified complications; Z79.4 - senior living (current) use of insulin (4) Hyperlipidemia LDL goal <70 Current Visit: Yes Status: Acute Review of outpatient records demonstrates that lab findings from 11/02/2016 demonstrating a cholesterol of 227, HDL 27 and LDL TNP. Triglycerides 408 down from 452 back in June 2016. - Continue atorvastatin high dose. - Low-cholesterol diet. - May benefit from initiation of Ezetimbe History of Present Illness - Reason for Consult Consult date: 01/31/17 Requesting physician: Ariadne Diamond - Chief Complaint hunter - History of Present Illness Mr. Rodriguez 51-year-old male known uncontrolled type II diabetic, seizure disorder , essential hypertension, GERD was admitted to the hospital with near syncopal episode. Consult was placed to nephrology as the patient has a trending up creatinine and diminishing GFR. Mr. Rodriguez denies any history of chronic kidney disease, regular follow-up with a orthopaedic technologist, blood in his urine, dysuria or difficulty starting or stopping a stream. He denies any family members having chronic kidney disease or requiring dialysis. He does have a history of nephrolithiasis and cholelithiasis which she said were identified on a renal ultrasound last year. He says that he is chronically dehydrated and does not take in enough fluids on a regular basis. He does mention she has had a difficult time controlling his glucose levels and is happy to see it when it is around 150. He said that he is eating more regularly while in the hospital and says glucoses have been higher since admission. He denies any other concerns or complaints at this time. Past Med Surg Social Fam HX - Past Medical History Medical history: arthritis, asthma, diabetes, GERD, hyperlipidemia, hypertension , renal disease, seizures, thyroid disease, other Psychiatric history: depression - Past Surgical History Surgical History: orthopedic, other, other - Social History Smoking Status: Former smoker Smokeless Tobacco Status: No Alcohol use: none Drug use: none - Family History Father Living Status: Still Living Hx Family Cardiac Disorders: Yes (bypass, pacer, stents) Hx Family Endocrine Disorder: Yes (dm) Medications and Allergies Atorvastatin Calcium [Lipitor] 80 mg PO DAILY 12/18/15 [History] FLUoxetine HCl [Prozac] 80 mg PO QAM 12/18/15 [History] Famotidine [Pepcid] 40 mg PO HS 12/18/15 [History] Gabapentin [Neurontin] 200 mg PO BID 12/18/15 [History] Imipramine HCl [Tofranil] 50 mg PO HS 12/18/15 [History] LORazepam [Ativan] 0.5 mg PO HS 12/18/15 [History] Liraglutide [Victoza 2-Norman] 1.2 mg SQ QAM 12/18/15 [History] Lisinopril [Zestril] 20 mg PO BID 12/18/15 [History] Meclizine HCl [Verticalm] 25 mg PO DAILY 12/18/15 [History] Metformin HCl [Glucophage] 1,000 mg PO QPM 12/18/15 [History] Nitroglycerin [Nitrostat] 0.4 mg SL AD PRN 12/18/15 [History] Onabotulinumtoxina [Botox] 200 unit IM [id number] 12/18/15 [History] Pantoprazole Sodium [Protonix] 40 mg PO BID 12/18/15 [History] Primidone [Mysoline] 50 mg PO HS 12/18/15 [History] SUMAtriptan Succinate [Imitrex] 100 mg PO AD PRN 12/18/15 [History] Tamsulosin [Flomax] 0.4 mg PO HS 12/18/15 [History] Topiramate [Topamax] 150 mg PO BID 12/18/15 [History] Ziprasidone HCl [Geodon] 120 mg PO HS 12/18/15 [History] amLODIPine [Norvasc] 5 mg PO DAILY 12/18/15 [History] Carbidopa/Levodopa 25/100 [Sinemet 25/100] 1 each PO BID 12/19/15 [History] Divalproex (12 HR) [Depakote (12 HR)] 1,000 mg PO BID 12/19/15 [History] Fenofibrate [Lofibra] 160 mg PO DAILY 12/19/15 [History] Amitriptyline [Elavil] 20 mg PO HS 01/18/17 [History] Butalbital/Aspirin/Caffeine [Fiorinal 50-325-40 mg Capsule] 1 cap PO QID PRN [History] Dexlansoprazole [Dexilant] 60 mg PO DAILY 01/18/17 [History] Insulin ASPART [NovoLOG] 0 unit SQ TID PRN 01/18/17 [History] Insulin Glargine [Lantus] 10 unit SQ HS 01/18/17 [History] Oxaprozin [Daypro] 600 mg PO BID 01/18/17 [History] Promethazine [Phenergan] 25 mg PO Q8HR PRN 01/18/17 [History] 3 Allergy/AdvReac Type Severity Reaction Status Date / Time acetaminophen [From Percocet] AdvReac See Verified 09/22/17 09:05 Comments Influenza Virus Vaccines AdvReac Hives Verified 01/14/17 09:05 Oxycodone [From Percocet] AdvReac See Verified 01/14/17 09:05 Comments Pneumococcal Vaccine AdvReac Hives Verified 01/14/17 09:05 Zolpidem [From Ambien] AdvReac See Verified 01/14/17 09:05 Comments Review of Systems Constitutional: no excessive sweating, no weight loss Eyes: bilateral: blurred vision (patient denies), diplopia (patient denies) Nose, mouth and throat: no dizziness, no headache(s) Cardiovascular: no chest pain, no palpitations Respiratory: no cough, no dyspnea Gastrointestinal: no abdominal pain, no change in bowel habits Musculoskeletal: no muscle weakness, no numbness Integumentary: no hirsutism, no striae Psychiatric: no depression, no difficulty concentrating Endocrine: as per HPI Hematologic/Lymphatic: no easy bruising, no lymphadenopathy Exam - Vital Signs Vital signs: Initial Vital Signs Temp Pulse Resp BP Pulse Ox 98.1 F 90 18 112/83 99 01/29/17 02:13 01/29/17 02:13 01/29/17 02:13 01/29/17 02:13 01/29/17 02:13 Vital Signs - Last 8 Hours Temp Pulse Resp BP Pulse Ox 01/31/17 11:53 97.8 F 87 16 105/67 96 01/31/17 09:16 97 01/31/17 07:13 97.6 F 80 17 98/66 97 Intake and Output 01/30/17 01/31/17 01/31/17 23:59 07:59 15:59 Intake Total 1000 / 1000 1000 / 1000 360 / 360 Balance 1000 / 1000 1000 / 1000 360 / 360 Intake: IV Fluids 1000 / 1000 1000 / 1000 0.9 % Sodium Chloride 1,000 ML 1000 / 1000 1000 / 1000 @ 100 mls/hr IVC .Q10H [facility] Rx#: [id number] Oral 360 / 360 Other: Meal Breakfast Percent of Meal Consumed 100% Blood Glucose* 170 339 228 - General Appearance General appearance: well-developed, well-nourished, appears started age Exam: General: Patient alert, awake, oriented 3, interactive, in no acute distress HEENT: Normocephalic, atraumatic, pupils equal reactive to light, nasal cavity patent and open septum median position, oral mucosa moist, uvula midline, neck supple trachea midline no palpable lymphadenopathy, no thyromegaly. Chest: Symmetric bilateral correlating with respiratory effort, effort nonlabored. Cardiac: Regular rate and rhythm, positive S1 and S2. no bruits appreciated bilateral carotids, Radial pulses 2+ bilateral, posterior tibial and dorsal pedal pulses 2+ bilateral. Respiratory: Clear to auscultation all lung hobson Abdomen: Soft, nontender, positive bowel sounds, no palpable masses appreciated on examination Extremities: Symmetric bilateral, bilateral lower extremities without erythema or edema patient moving all 4 extremities spontaneously. Neurologic: No focal deficits appreciated on examination. Face symmetric, muscle strength symmetric bilateral upper and lower extremities. Respiratory: no kyphosis, no scoliosis Cardiology: no murmurs, no rub, no gallops, no edema, regular rate, regular rhythm, normal S1, normal S2 Integumentary: no rash, warm and dry Neurologic: no focal deficit, no asterixis, alert and oriented x3, reflexes 2+ and symmetric, gait normal, strength 5/5 Musculoskeletal: no deformities, no erythema, no cyanosis, no clubbing Psychiatric: mood/affect appropriate, cooperative Results - Lab Results 01/31/17 02:35 01/31/17 02:35 Most recent lab results Calcium 8.2 mg/dL (8.6-10.8) L 01/31/17 02:35 Magnesium 1.6 mg/dL (1.6-2.6) 01/30/17 04:29 Consult Discharge Plan - Plan Referrals: Eric Castillo MD [Primary Care Provider] -
[2017-01-31] MEDS ORDERED: *HR* Midazolam HCl 2 MG/2 ML VIAL ONE (15:07)
[2017-01-31] MEDS ORDERED: *HR* FentaNYL (PF) 100 MCG/2 ML VIAL ONE (15:07)
--- NOTE | 2017-01-31 15:07 | Pre-Sedation Evaluation ---
Pre-sedation evaluation - Pre-sedation checklist Procedure: egd Recent Vitals: Last Vital Signs Temp 97.8 F 01/31/17 11:53 Pulse 87 01/31/17 11:53 Resp 16 01/31/17 11:53 BP 105/67 01/31/17 11:53 Pulse Ox 96 01/31/17 11:53 H&P (including ROS) documented in medical record: Yes Previous reaction to sedatives/anesthetics: No Dietary Status: NPO after Midnight Airway Assessment: Patient can open mouth completely, TMJ function normal, Micrognathia (under-bite, receding chin) absent Dentition: poor dentition Possible difficult airway: No ASA Classification *see protocol: CLASS II-Mild systemic disease Plan of Care: Pt appropriate candidate for procedure/moderate/conscious sedation , Risks/benefits of procedure/sedation discussed w/ patient/family
[2017-01-31 16:22] LABS: Hemoglobin A1C 9.2 %
--- NOTE | 2017-01-31 16:40 | Internal Med Progress Note ---
Date of Encounter: 01/31/17 Time of Encounter: 16:40 - Assessment and plan (1) Syncope and collapse Current Visit: Yes Status: Acute Assessment and plan: Kris Rodriguez is a 51-year-old male with past medical history diabetes, seizure disorder, hypertension and tremors who presented to [facility] on with complaints of falling and passing out. He was placed in observation status for further workup and treatment. 1. Near syncope with collapse: reports episodes of entire body weakness resulting in falls. Episodes have not been witnessed therefore he is not sure if he has lost consciousness. Had similar symptoms in 2016 with a subsequent event monitoring that found no significant cardiac events. 01/18/2017 echo and bilateral carotids unremarkable. Now with recurrent episodes. Etiology unknown at this time. Evaluated by neurology who does not feel episodes are leading to seizures or secondary to primary neurologic disorder. BP has been soft, borderline while inpatient. This could be contributing to episodes. He is also on multiple psychiatric, sedating medications which could also be contributing to episodes. LINQ placed 01/31/17 per Cardiology. Psych consulted 2. ROSSANA: Cr 1.4; baseline appears normal. Home JOSH held on arrival. Evaluated by nephrology who noted at high risk for progressive renal disease with uncontrolled diabetes. Continue IV fluids, holding home Josh. UA, renal ultrasound and urine electrolytes pending. Nephrology following 3. Hyponatremia: Na 130; appears neurologically intact. Continue IV fluids. Monitor repeat CMP. 4. Diabetes: Per history. Blood sugars uncontrolled. Holding home metformin. High dose SSI. Add long-acting insulin at at bedtime. Monitor blood sugar and titrate PRN. Repeat Hgb A1c pending 5. Seizure disorder: Per history. Evaluated by neurology who does not suspect current symptoms related to seizure disorder. Depakote level 41. Depakote dose increased by 500 mg daily per neurology's recommendation. Seizure precautions. 6. Hypertension: Per history but BP has been soft/borderline. Holding home BP medications as he presented with near syncope and collapse. Continue IV fluids. Monitor BP and resume as BP allows. 7. Tremors: hx significant tremors in the past and has been evaluated by neurology as an outpatient and has been taking Sinemet with significant improvement in his symptoms. Neurology concern for possible early sign of Parkinson's as he is responding well to Sinemet. Neurology also noted patient could also have associated dysautonomia. He is established with neurologist at [place]. We will need to follow up outpatient. 8. DVT prophylaxis: Heparin (2) DM type 2 (diabetes mellitus, type 2) Current Visit: No Status: Chronic Qualifiers: Diabetes mellitus complication status: with unspecified complications Diabetes mellitus exterminator termite insulin use: with skilled nursing use Qualified Code(s) : E11.8 - Type 2 diabetes mellitus with unspecified complications; Z79.4 - termite renewal inspector (current) use of insulin (3) NAKIA (obstructive sleep apnea) Current Visit: No Status: Chronic (4) Seizure disorder Current Visit: No Status: Chronic (5) Tremors of nervous system Current Visit: Yes Status: Acute (6) DVT prophylaxis Current Visit: No Status: Acute - Subjective Interval history: Seen and examined at bedside. Says he feels about the same, no syncopal episodes overnight. Denies chest pain no shortness of breath. Still with him at length regarding the concern of multiple psychiatric medications and how this could be contributing to his single episodes. He is agreeable for psychiatric consultation - Constitutional Vitals: Temp Pulse Resp BP Pulse Ox 97.6 F 72 15 125/88 98 01/31/17 16:17 01/31/17 16:17 01/31/17 16:17 01/31/17 15:47 01/31/17 16:17 General appearance: Present: A&O X 3, morbidly obese, no acute distress - Head Head exam: Present: atraumatic, normocephalic - Eye Eye exam: Present: PERRL, conjuntiva pink, sclera anicteric Pupils: Present: PERRL - Neck Neck exam general surgery: Present: supple, trachea midline. Absent: lymphadenopathy - Respiratory Respiratory exam: Present: CTAB. Absent: accessory muscle use, rales, rhonchi, wheezes - Cardiovascular Cardiovascular exam: Present: RRR, +S1, +S2. Absent: diastolic murmur, gallop, rubs, systolic murmur - GI/Abdominal GI/Abdominal exam: Present: normal bowel sounds, soft, no peritoneal signs. Absent: distended, tenderness - Extremities Exam Extremities exam: Present: warm, radial pulses palpable and symmetrical. Absent : calf tenderness, cyanotic, pedal edema - Neurological Exam Neurological exam: Present: CN II-XII intact, oriented X3, no focal deficits. Absent: pronater drift, facial droop, speech deficit - Skin Skin exam: Present: dry, intact Internal Medicine: Result - Labs CBC & Chem 7: 01/31/17 02:35 01/31/17 02:35 Labs: Short CBC 01/31/17 Range/Units 02:35 WBC 4.1 L (4.3-11.1) K/mcL Hgb 11.0 L (12.9-16.9) g/dL Hct 33.4 L (37.5-50.1) % Plt Count 200 (140-400) K/mcL BMP 01/31/17 02:35 Sodium 130 L Potassium 4.9 H Chloride 103 Carbon Dioxide 19 BUN 21 Creatinine 1.41 H Glucose 311 H Calcium 8.2 L Liver Function 01/31/17 Range/Units 02:35 Total Bilirubin 0.3 (0.2-1.2) mg/dL AST 10 (5-34) Units/L ALT 8 (0-55) Units/L Alkaline Phosphatase 76 (38-126) Units/L Albumin 3.0 L (3.5-5.0) g/dL - ABG Interpretation ABG results: PT/INR, D-dimer D-Dimer 369 ng/mLFEU (0-500) 01/29/17 04:22 - VTE Documentation of Mechanical Device: Intermittent pneumatic compression device Consult Discharge Plan - Plan Referrals: Eric Castillo MD [Primary Care Provider] -
--- NOTE | 2017-01-31 18:44 | Electrocardiograph Report ---
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
--- NOTE | 2017-01-31 18:44 | Electrocardiograph Report ---
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
[2017-01-31] MEDS: *HR* LORazepam 0.5 MG TABLET PO SCH (22:24)
[2017-01-31] MEDS: Famotidine 20 MG TABLET PO SCH (22:24)
[2017-01-31] MEDS: Primidone 50 MG TABLET PO SCH (22:25)
[2017-01-31] MEDS: Insulin DETEMIR 100 UNIT/ML X5UNITS SQ SCH (22:50)
[2017-02-01] MEDS: 0.9 % Sodium Chloride 1,000 ML IVC SCH ×2 (05:13→15:15)
[2017-02-01] MEDS: *HR* Heparin 5,000 UNIT/ML VIAL SQ SCH ×3 (05:19→22:27)
[2017-02-01] MEDS: Pantoprazole 40 MG VIAL IVP SCH (05:19)
[2017-02-01 05:30] LABS: Hematocrit 33.5 % (37.5-50.1); Mean Corpuscular HGB Conc 32.8 g/dL (31.6-35.5); Mean Corpuscular Volume 82.3 fL (83.0-100.0); Mean Platelet Volume 10.9 fL (9.4-12.4); Platelet Count 183 K/mcL (140-400); Red Blood Count 4.07 M/mcL (4.19-5.50); Red Cell Distribution Width 13.9 % (11.5-14.5)
[2017-02-01 05:48] LABS: Alanine Aminotransferase 7 Units/L (0-55); Albumin/Globulin Ratio 0.9 (1.1-2.2); Alkaline Phosphatase 72 Units/L (38-126); Aspartate Amino Transferase 10 Units/L (5-34); BUN/Creatinine Ratio 12 (6-26); Bilirubin,Total 0.3 mg/dL (0.2-1.2); Blood Urea Nitrogen 15 mg/dL (8-26); Calcium 8.6 mg/dL (8.6-10.8); Carbon Dioxide 20 mEq/L (19-29); Chloride 110 mEq/L (98-109); Globulin 3.2 g/dL (2.4-3.5); Glucose 247 mg/dL (70-99); Osmolality,Calculated 289 (280-300); Potassium 4.7 mEq/L (3.5-4.5); Sodium 135 mEq/L (136-145); Total Protein 6.2 g/dL (6.0-8.3); eGFR For African Americans > 60 (> 60); eGFR For Non-African Americans > 60 (> 60)
--- NOTE | 2017-02-01 08:35 | Nephrology Progress Note ---
Date of Encounter: 02/01/17 Time of Encounter: 08:35 - Assessment and Plan (1) Acute kidney injury Current Visit: Yes Status: Acute 51-year-old uncontrolled type II diabetic has elevated creatinine at 1.41 with a GFR of 53. Review of his laboratory results demonstrates he has had normal GFR greater than 60 and a creatinine around 1.10. No recent urinalysis. His lisinopril was held with his rising creatinine. - Patient is uncontrolled type II diabetic who presents with slight elevation in his creatinine slight diminish in his GFR setting of hospitalization. He is high risk for progressive renal disease as he is uncontrolled type II diabetic is at risk of developing diabetic nephropathy. His current presentation is likely prerenal, review of his urinary output demonstrates poor recording. 02/01: Renal function slightly improved with a creatinine 1.41 and GFR greater than 60, continue to hold Lasix and monitor renal function daily. Patient likely has a GFR roughly around 60. Retroperitoneal ultrasound: IMPRESSION: 1. Normal sonographic appearance of the kidneys. 2. Urinary bladder wall thickening potentially due to incomplete distention, chronic outlet obstruction, and/or cystitis. 3. Incidental note of hepatic steatosis. Plan: - Urinalysis with microscopy, pending - Urine creatinine, urine sodium, pending - Serum uric acid level, pending - Strict intake and output monitoring, daily standing weights - Avoid nephrotoxic medications and renally dose antibiotics - Continue to hold lisinopril and blood pressure stable. - Obtain appropriate glucose control (2) Obesity (BMI 30-39.9) Current Visit: No Status: Chronic 51-year-old male with central obesity and BMI of 34.0. Mr. Rodriguez of benefit from dietary modifications to include a DASH diet, moderate exercise and lifestyle changes to improve longevity and obtain better control of his diabetes. (3) DM type 2 (diabetes mellitus, type 2) Current Visit: No Status: Chronic Mr. Rodriguez 51-year-old male with uncontrolled type 2 diabetes. A1c in the outpatient setting 2 months ago was greater than 10. His current glucoses are around 250-300. Plan: - Management per primary team with goal glucose below 140. - Diabetic diet Qualifiers: Diabetes mellitus complication status: with unspecified complications Diabetes mellitus emt intermediate insulin use: with emt intermediate use Qualified Code(s) : E11.8 - Type 2 diabetes mellitus with unspecified complications; Z79.4 - superintendent container terminal (current) use of insulin (4) Hyperlipidemia LDL goal <70 Current Visit: Yes Status: Acute Review of outpatient records demonstrates that lab findings from 11/02/2016 demonstrating a cholesterol of 227, HDL 27 and LDL TNP. Triglycerides 408 down from 452 back in June 2016. - Continue atorvastatin high dose. - Low-cholesterol diet. - May benefit from initiation of Ezetimbe Subjective Principal diagnosis: ROSSANA Interval history: Mr. Rodriguez has been seen and evaluated this morning. He denies any discomforts or problems. He did not have any significant events since our last encounter yesterday. He continues to make appropriate urine and denies any urinary pain, blood in urine or other concerns. Objective - Vital Signs Vital signs: Vital Signs Temp Pulse Resp BP BP BP BP 02/01/17 07:44 97.6 F 80 17 120/76 02/01/17 02:37 97.6 F 83 16 111/75 01/31/17 23:09 97.8 F 77 16 126/83 126/83 118/81 116/76 01/31/17 21:36 98.6 F 75 16 128/76 01/31/17 19:10 97.6 F 88 16 120/84 01/31/17 17:22 97.5 F L 65 17 112/73 01/31/17 16:19 97.6 F 73 16 130/92 01/31/17 16:18 97.6 F 72 15 107/71 01/31/17 16:17 97.6 F 72 15 01/31/17 15:47 97.6 F 73 17 125/88 01/31/17 11:53 97.8 F 87 16 105/67 01/31/17 09:16 Pulse Ox 02/01/17 07:44 97 02/01/17 02:37 95 01/31/17 23:09 97 01/31/17 21:36 96 01/31/17 19:10 92 01/31/17 17:22 97 01/31/17 16:19 98 01/31/17 16:18 98 01/31/17 16:17 98 01/31/17 15:47 98 01/31/17 11:53 96 01/31/17 09:16 97 Intake and Output 01/31/17 02/01/17 02/01/17 23:59 07:59 15:59 Intake Total 1000 / 1000 1000 / 1000 Output Total 600 / 600 Balance 400 / 400 1000 / 1000 Intake: IV Fluids 1000 / 1000 1000 / 1000 0.9 % Sodium Chloride 1,000 ML 1000 / 1000 1000 / 1000 @ 100 mls/hr IVC .Q10H MELITA Rx#: [id number] Output: Urine 600 / 600 Other: Weight 113.58 kg Blood Glucose* 212 263 Patient Weight 02/01/17 23:59 Weight 113.58 kg - General Appearance Exam: General: Patient alert, awake, oriented 3, interactive, in no acute distress HEENT: Normocephalic, atraumatic, pupils equal reactive to light, nasal cavity patent and open septum median position, oral mucosa moist, uvula midline, neck supple trachea midline no palpable lymphadenopathy, no thyromegaly. Chest: Symmetric bilateral correlating with respiratory effort, effort nonlabored. Cardiac: Regular rate and rhythm, positive S1 and S2. no bruits appreciated bilateral carotids, Radial pulses 2+ bilateral, posterior tibial and dorsal pedal pulses 2+ bilateral. Respiratory: Clear to auscultation all lung hobson Abdomen: Soft, nontender, positive bowel sounds, no palpable masses appreciated on examination Extremities: Symmetric bilateral, bilateral lower extremities without erythema or edema patient moving all 4 extremities spontaneously. Neurologic: No focal deficits appreciated on examination. Face symmetric, muscle strength symmetric bilateral upper and lower extremities. - Lab 02/01/17 05:07 02/01/17 05:07 Most recent lab results Calcium 8.6 mg/dL (8.6-10.8) 02/01/17 05:07 Magnesium 1.6 mg/dL (1.6-2.6) 01/30/17 04:29 - VTE Documentation of Mechanical Device: Intermittent pneumatic compression device Consult Discharge Plan - Plan Referrals: Eric Castillo MD [Primary Care Provider] -
[2017-02-01] MEDS: Aspirin 81 MG TAB.CHEW PO SCH (09:02)
[2017-02-01] MEDS: Insulin LISPRO 300 UNITS/3 ML VIAL SQ SCH ×4 (09:02→22:28)
[2017-02-01] MEDS: Divalproex (12 HR) 500 MG TABLET PO SCH ×2 (09:03→22:26)
[2017-02-01] MEDS: Topiramate 100 MG TABLET PO SCH ×2 (09:03→22:24)
[2017-02-01] MEDS: Carbidopa/Levodopa 25/100 TABLET PO SCH ×2 (09:03→22:27)
[2017-02-01] MEDS: Fenofibrate 54 MG TABLET PO SCH (09:03)
[2017-02-01] MEDS: Gabapentin 100 MG CAPSULE PO SCH ×2 (09:04→22:22)
[2017-02-01] MEDS: VICTOZA 1.2 MG SQ SCH (09:06)
[2017-02-01] MEDS: FLUoxetine 20 MG CAPSULE PO SCH (09:06)
--- NOTE | 2017-02-01 16:32 | Internal Med Progress Note ---
Date of Encounter: 02/01/17 Time of Encounter: 16:32 - Assessment and plan (1) Syncope and collapse Current Visit: Yes Status: Acute Assessment and plan: Kris Rodriguez is a 51-year-old male with past medical history diabetes, seizure disorder, hypertension and tremors who presented to [facility] on with complaints of falling and passing out. He was placed in observation status for further workup and treatment. 1. Near syncope with collapse: reports episodes of entire body weakness resulting in falls. Episodes have not been witnessed therefore he is not sure if he has lost consciousness. Had similar symptoms in 2016 with a subsequent event monitoring that found no significant cardiac events. 01/18/2017 echo and bilateral carotids unremarkable. Now with recurrent episodes. Etiology unknown at this time. Evaluated by neurology who does not feel episodes are leading to seizures or secondary to primary neurologic disorder. BP has been soft, borderline while inpatient, this could be contributing to episodes. He is also on multiple psychiatric, sedating medications which could also be contributing to episodes. LINQ placed 01/31/17 per Cardiology. Psych consulted 2. ROSSANA: Cr 1.4; baseline appears normal. Home JOSH held on arrival. Evaluated by nephrology who noted at high risk for progressive renal disease with uncontrolled diabetes. Renal ultrasound unremarkable. Continue IV fluids, holding home Josh. UA, urine electrolytes pending. Nephrology following 3. Hyponatremia: Na 130; appears neurologically intact. Continue IV fluids. Monitor repeat CMP. 4. Diabetes: Per history. Blood sugars uncontrolled. Holding home metformin. High dose SSI. Add long-acting insulin at at bedtime. Monitor blood sugar and titrate PRN. Repeat Hgb A1c pending 5. Seizure disorder: Per history. Evaluated by neurology who does not suspect current syncope episodes are related to seizure disorder. Depakote level 41. Depakote dose increased by 500 mg daily on 01/31/2017. Patient thinks he had a seizure overnight on 01/31 as he was incontinent of urine. Discussed with neurology and will repeat Depakote level in the morning and check EEG. Continue Seizure precautions. 6. Hypertension: Per history but BP has been soft/borderline. Holding home BP medications as he presented with near syncope and collapse. Continue IV fluids. Monitor BP and resume as BP allows. 7. Tremors: hx significant tremors in the past and has been evaluated by neurology as an outpatient and has been taking Sinemet with significant improvement in his symptoms. Neurology concern for possible early sign of Parkinson's as he is responding well to Sinemet. Neurology also noted patient could also have associated dysautonomia. He is established with neurologist at [place]. We will need to follow up outpatient. 8. 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 He had a fall last night, was up to the bathroom unattended and fell. Head CT nonacute. He tells me he thinks he had a seizure overnight as he was incontinent of bladder. No evidence of biting tongue. Would like to go home and is agreeable to stay overnight for further monitoring. He has no complaints on my exam cites being tired and generally not feeling well. Specifically denies chest pain, no shortness of breath. - Constitutional Vitals: Temp Pulse Resp BP Pulse Ox 97.6 F 75 18 124/76 97 02/01/17 15:31 02/01/17 15:31 02/01/17 15:31 02/01/17 15:31 02/01/17 15:31 General appearance: Present: A&O X 3, morbidly obese, no acute distress - Head Head exam: Present: atraumatic, normocephalic - Eye Eye exam: Present: PERRL, conjuntiva pink, sclera anicteric Pupils: Present: PERRL - Neck Neck exam general surgery: Present: supple, trachea midline. Absent: lymphadenopathy - Respiratory Respiratory exam: Present: CTAB. Absent: accessory muscle use, rales, rhonchi, wheezes - Cardiovascular Cardiovascular exam: Present: RRR, +S1, +S2. Absent: diastolic murmur, gallop, rubs, systolic murmur - GI/Abdominal GI/Abdominal exam: Present: normal bowel sounds, soft, no peritoneal signs. Absent: distended, tenderness - Extremities Exam Extremities exam: Present: warm, radial pulses palpable and symmetrical. Absent : calf tenderness, cyanotic, pedal edema - Neurological Exam Neurological exam: Present: CN II-XII intact, oriented X3, no focal deficits. Absent: pronater drift, facial droop, speech deficit - Skin Skin exam: Present: dry, intact Internal Medicine: Result - Labs CBC & Chem 7: 02/01/17 05:07 02/01/17 05:07 Labs: Short CBC 02/01/17 Range/Units 05:07 WBC 3.2 L (4.3-11.1) K/mcL Hgb 11.0 L (12.9-16.9) g/dL Hct 33.5 L (37.5-50.1) % Plt Count 183 (140-400) K/mcL BMP 02/01/17 05:07 Sodium 135 L Potassium 4.7 H Chloride 110 H Carbon Dioxide 20 BUN 15 Creatinine 1.21 Glucose 247 H Calcium 8.6 Liver Function 02/01/17 Range/Units 05:07 Total Bilirubin 0.3 (0.2-1.2) mg/dL AST 10 (5-34) Units/L ALT 7 (0-55) Units/L Alkaline Phosphatase 72 (38-126) Units/L Albumin 3.0 L (3.5-5.0) g/dL - ABG Interpretation ABG results: PT/INR, D-dimer D-Dimer 369 ng/mLFEU (0-500) 01/29/17 04:22 - Impressions Impressions Retroperitoneum Ultrasound 01/31/17 19:00 IMPRESSION: 1. Normal sonographic appearance of the kidneys. 2. Urinary bladder wall thickening potentially due to incomplete distention, chronic outlet obstruction, and/or cystitis. 3. Incidental note of hepatic steatosis. D/ / Francisco Wallace MD / Francisco Wallace MD Interpreting Provider: Francisco Wallace MD Head CT 01/31/17 21:29 IMPRESSION: No acute intracranial abnormality. D/ / Kevin Hunt / Kevin Hunt Interpreting Provider: Kevin Hunt - VTE Documentation of Mechanical Device: Intermittent pneumatic compression device Consult Discharge Plan - Plan Referrals: Eric Castillo MD [Primary Care Provider] -
--- NOTE | 2017-02-01 16:45 | Consult Note ---
Date of Encounter: 02/01/17 Time of Encounter: 16:40 Assessment & Recommendation (1) Depression Current visit: Yes Status: Acute Assessment & Recommendation: Client takes several mental health medications. Claims his only diagnosis is depression and that he has not felt depressed in a long time. Doubt his medications are causing syncopal episodes since he has been on the same medication regimen for years without changes. However, his med list can and should probably be streamlined. TCAs can lower blood pressure and reduce the seizure threshold. He is currently prescribed two TCAs-Tofranil and Elavil. May want to consider eliminating one of them. Geodon can prolong the QTc interval. In combination with the TCAs it could predispose him to cardiac arrhythmias. However, would suspect EKG changes with this. Prozac in combination with the TCAs could cause an excess of serotonin. However, client is not describing any symptoms that are consistent with serotonin syndrome. All of his mental health meds have the potential to lower his blood pressure. Ativan and TCAs are most likely to be doing this. May want to check a VPA level to ensure Depakote is being dosed appropriately. Recommend referring him to outpatient psychiatry once discharged so ongoing med adjustments can be made. Qualifiers: Depression Type: major depressive disorder Major depression recurrence: recurrent Active/Remission status: in full remission Qualified Code(s): F33.42 - Major depressive disorder, recurrent, in full remission History of Present Illness Requesting Physician: Ariadne Diamond CNP Reason for consult: review of meds History of present illness: Mr. Rodriguez is a 51 year old male who was admitted for repeat syncopal episodes. Medical work-up has not found anything definitive. Psychiatry was consulted to review list of meds and to see if any of his mental health medications might be contributing. Client reports he is diagnosed with depression. Has been admitted to in the past but not in years. Lost his Psychiatrist at [facility] due to a change in insurance a while back and has been following with his family doctor ever since. Claims there have been no changes in his psych meds in years. Reports he has not struggled with mood issues in a long time. Does not believe he needs all of the mental health medications he is prescribed but has continued to take them because he has been stable. Willing to consider streamlining his medication regimen. CC: Ariadne Diamond CNP Past Med Surg Social Fam HX - Past Medical History Medical history: arthritis, asthma, diabetes, GERD, hyperlipidemia, hypertension , renal disease, seizures, thyroid disease, other - Past Psychiatric History Psychiatric history: Reports: depression Family psychiatric history: Unknown Family History of Suicide: Unknown - Past Surgical History Surgical History: orthopedic, other, other - Social History Smoking Status: Former smoker Smokeless Tobacco Status: No Alcohol use: none Drug use: none - Family History Father Living Status: Still Living Hx Family Cardiac Disorders: Yes (bypass, pacer, stents) Hx Family Endocrine Disorder: Yes (dm) Medications & Allergies Atorvastatin Calcium [Lipitor] 80 mg PO DAILY 12/18/15 [History] FLUoxetine HCl [Prozac] 80 mg PO QAM 12/18/15 [History] Famotidine [Pepcid] 40 mg PO HS 12/18/15 [History] Gabapentin [Neurontin] 200 mg PO BID 12/18/15 [History] Imipramine HCl [Tofranil] 50 mg PO HS 12/18/15 [History] LORazepam [Ativan] 0.5 mg PO HS 12/18/15 [History] Liraglutide [Victoza 2-Norman] 1.2 mg SQ QAM 12/18/15 [History] Lisinopril [Zestril] 20 mg PO BID 12/18/15 [History] Meclizine HCl [Verticalm] 25 mg PO DAILY 12/18/15 [History] Metformin HCl [Glucophage] 1,000 mg PO QPM 12/18/15 [History] Nitroglycerin [Nitrostat] 0.4 mg SL AD PRN 12/18/15 [History] Onabotulinumtoxina [Botox] 200 unit IM [id number] 12/18/15 [History] Pantoprazole Sodium [Protonix] 40 mg PO BID 12/18/15 [History] Primidone [Mysoline] 50 mg PO HS 12/18/15 [History] SUMAtriptan Succinate [Imitrex] 100 mg PO AD PRN 12/18/15 [History] Tamsulosin [Flomax] 0.4 mg PO HS 12/18/15 [History] Topiramate [Topamax] 150 mg PO BID 12/18/15 [History] Ziprasidone HCl [Geodon] 120 mg PO HS 12/18/15 [History] amLODIPine [Norvasc] 5 mg PO DAILY 12/18/15 [History] Carbidopa/Levodopa 25/ [Sinemet 25] 1 each PO BID 12/19/15 [History] Divalproex (12 HR) [Depakote (12 HR)] 1,000 mg PO BID 12/19/15 [History] Fenofibrate [Lofibra] 160 mg PO DAILY 12/19/15 [History] Amitriptyline [Elavil] 20 mg PO HS 01/18/17 [History] Butalbital/Aspirin/Caffeine [Fiorinal 50-325-40 mg Capsule] 1 cap PO QID PRN [History] Dexlansoprazole [Dexilant] 60 mg PO DAILY 01/18/17 [History] Insulin ASPART [NovoLOG] 0 unit SQ TID PRN 01/18/17 [History] Insulin Glargine [Lantus] 10 unit SQ HS 01/18/17 [History] Oxaprozin [Daypro] 600 mg PO BID 01/18/17 [History] Promethazine [Phenergan] 25 mg PO Q8HR PRN 01/18/17 [History] 3 Allergy/AdvReac Type Severity Reaction Status Date / Time acetaminophen [From Percocet] AdvReac See Verified 01/14/17 09:05 Comments Influenza Virus Vaccines AdvReac Hives Verified 01/14/17 09:05 Oxycodone [From Percocet] AdvReac See Verified 01/14/17 09:05 Comments Pneumococcal Vaccine AdvReac Hives Verified 01/14/17 09:05 Zolpidem [From Ambien] AdvReac See Verified 01/14/17 09:05 Comments Review of Systems Constitutional: Denies: fever, chills, weakness, weight change Eyes: Denies: eye pain, vision change Ears, Nose, Throat: Denies: ear pain, throat pain, dental pain, hearing loss, congestion Cardiovascular: Denies: chest pain, palpitations, dyspnea on exertion Respiratory: Denies: cough, dyspnea, wheezes Gastrointestinal: Denies: abdominal pain, nausea, vomiting, diarrhea, constipation Genitourinary male: Denies: urgency, dysuria, frequency, genital lesions Genitourinary female: Denies: urgency, dysuria, frequency, abnormal menses, dyspareunia Musculoskeletal: Denies: joint swelling, joint pain Integumentary: Denies: rash, lesions, pruritus Neurological: Reports: other. Denies: headache, weakness, numbness, memory loss Psychiatric: Reports: depression Endocrine: Denies: fatigue, heat or cold intolerance Hematologic/Lymphatic: Denies: easy bruising, lymphadenopathy Allergic/Immunologic: Denies: urticaria, itchy eyes Mental Status Exam Patient orientation: Yes Person, Yes Time, Yes Place Level of alertness: Alert Patient appearance: Appropriate Behavior: calm, cooperative Psychomotor activity: Normal Eye contact: Maintains Eye Contact Mood description: Euthymic/stable Affect description: congruent with mood Speech pattern: Normal rate, Normal rhythm, Normal tone Speech volume: Normal Thought process: Linear, Goal Oriented Thought content: No Suicidal ideation, No Homicidal ideation, No Overt delusions Perceptual disturbances: No Auditory hallucinations, No Visual hallucinations Attention span: Capable of Focused Attention Memory description: Grossly Intact Patient reliability: Reliable Historian Intelligence estimate: Average Judgment: Fair Insight: Partial Results - Vital Signs Vital signs: Temp Pulse Resp BP Pulse Ox 97.6 F 75 18 124/76 97 02/01/17 15:31 02/01/17 15:31 02/01/17 15:31 02/01/17 15:31 02/01/17 15:31 - Labs Labs: Laboratory Last Values WBC 3.2 K/mcL (4.3-11.1) L 02/01/17 05:07 RBC 4.07 M/mcL (4.19-5.50) L 02/01/17 05:07 Hgb 11.0 g/dL (12.9-16.9) L 02/01/17 05:07 Hct 33.5 % (37.5-50.1) L 02/01/17 05:07 MCV 82.3 fL (83.0-100.0) L 02/01/17 05:07 MCH 27.0 pg (28.0-33.3) L 02/01/17 05:07 MCHC 32.8 g/dL (31.6-35.5) 02/01/17 05:07 RDW 13.9 % (11.5-14.5) 02/01/17 05:07 Plt Count 183 K/mcL (140-400) 02/01/17 05:07 MPV 10.9 fL (9.4-12.4) 02/01/17 05:07 Immature Gran % 0.4 % (0-4) 01/30/17 04:29 Seg Neutrophils % 47.5 % 01/30/17 04:29 Lymphocytes % 40.2 % 01/30/17 04:29 Monocytes % 8.3 % 01/30/17 04:29 Eosinophils % 3.2 % 01/30/17 04:29 Basophils % 0.4 % 01/30/17 04:29 Neutrophils # 2.2 K/mcL (1.6-8.9) 01/30/17 04:29 Lymphocytes # 1.9 K/mcL (0.6-4.6) 01/30/17 04:29 Monocytes # 0.4 K/mcL (0.0-1.3) 01/30/17 04:29 Eosinophils # 0.2 K/mcL (0.0-0.6) 01/30/17 04:29 Basophils # 0.0 K/mcL (0.0-0.2) 01/30/17 04:29 Immature Plt Fraction 6.4 % (1.1-6.1) H 01/31/17 02:35 D-Dimer 369 ng/mLFEU (0-500) 01/29/17 04:22 Sodium 135 mEq/L (136-145) L 02/01/17 05:07 Potassium 4.7 mEq/L (3.5-4.5) H 02/01/17 05:07 Chloride 110 mEq/L (98-109) H 02/01/17 05:07 Carbon Dioxide 20 mEq/L (19-29) 02/01/17 05:07 BUN 15 mg/dL (8-26) 02/01/17 05:07 Creatinine 1.21 mg/dL (0.72-1.25) 02/01/17 05:07 Est GFR ( Amer) > 60 (> 60) 02/01/17 05:07 Est GFR (Non-Af Amer) > 60 (> 60) 02/01/17 05:07 BUN/Creatinine Ratio 12 (6-26) 02/01/17 05:07 Glucose 247 mg/dL (70-99) H 02/01/17 05:07 POC Glucose 183 (58-89) H 02/01/17 11:35 Est Mean Plasma Glucose 217 mg/dl 01/31/17 02:35 Hemoglobin A1c 9.2 % (-5.6) H 01/31/17 02:35 Calculated Osmolality 289 (280-300) 02/01/17 05:07 Calcium 8.6 mg/dL (8.6-10.8) 02/01/17 05:07 Magnesium 1.6 mg/dL (1.6-2.6) 01/30/17 04:29 Total Bilirubin 0.3 mg/dL (0.2-1.2) 02/01/17 05:07 AST 10 Units/L (5-34) 02/01/17 05:07 ALT 7 Units/L (0-55) 02/01/17 05:07 Alkaline Phosphatase 72 Units/L (38-126) 02/01/17 05:07 Creatine Kinase 34 Units/L (30-200) 01/29/17 16:20 Troponin I 0.01 ng/mL (0-0.03) 01/29/17 16:20 Serum Total Protein 6.2 g/dL (6.0-8.3) 02/01/17 05:07 Albumin 3.0 g/dL (3.5-5.0) L 02/01/17 05:07 Globulin 3.2 g/dL (2.4-3.5) 02/01/17 05:07 Albumin/Globulin Ratio 0.9 (1.1-2.2) L 02/01/17 05:07 Stool Occult Blood Negative (Negative) 01/31/17 03:22 Urine Opiates Screen Negative ng/mL (Brgyqw=741) 01/30/17 18:36 Ur Barbiturates Screen Positive ng/mL (Byqcof=027) H 01/30/17 18:36 Valproic Acid 41.31 mcg/mL (50-100) L 01/31/17 02:35 Ur Phencyclidine Scrn Negative ng/mL (Cutoff=25) 01/30/17 18:36 Ur Amphetamines Screen Negative ng/mL (Fgmhig=0882) 01/30/17 18:36 U Benzodiazepines Scrn Negative ng/mL (Tgxrin=886) 01/30/17 18:36 Urine Cocaine Screen Negative ng/mL (Cutoff= 300) 01/30/17 18:36 U Marijuana (THC) Screen Negative ng/mL (Cutoff = 50) 01/30/17 18:36 - Impressions Impressions Retroperitoneum Ultrasound 01/31/17 19:00 IMPRESSION: 1. Normal sonographic appearance of the kidneys. 2. Urinary bladder wall thickening potentially due to incomplete distention, chronic outlet obstruction, and/or cystitis. 3. Incidental note of hepatic steatosis. D/ / Francisco Wallace MD / Francisco Wallace MD Interpreting Provider: Francisco Wallace MD Head CT 01/31/17 21:29 IMPRESSION: No acute intracranial abnormality. D/ / Kevin Hunt / Kevin Hunt Interpreting Provider: Kevin Hunt Consult Discharge Plan - Plan Referrals: Eric Castillo MD [Primary Care Provider] -
[2017-02-01] MEDS: Primidone 50 MG TABLET PO SCH (22:22)
[2017-02-01] MEDS: SUMAtriptan succinate 50 MG TABLET PO PRN (22:23)
[2017-02-01] MEDS: *HR* LORazepam 0.5 MG TABLET PO SCH (22:27)
[2017-02-01] MEDS: Famotidine 20 MG TABLET PO SCH (22:27)
[2017-02-01] MEDS: Insulin DETEMIR 100 UNIT/ML X5UNITS SQ SCH (22:29)
[2017-02-02] MEDS: 0.9 % Sodium Chloride 1,000 ML IVC SCH ×4 (01:37→23:28)
[2017-02-02] MEDS: *HR* Heparin 5,000 UNIT/ML VIAL SQ SCH ×3 (06:31→21:41)
--- NOTE | 2017-02-02 08:28 | Nephrology Progress Note ---
Date of Encounter: 02/02/17 Time of Encounter: 08:17 - Assessment and Plan (1) Acute kidney injury Current Visit: Yes Status: Acute 51-year-old uncontrolled type II diabetic has elevated creatinine at 1.41 with a GFR of 53. Review of his laboratory results demonstrates he has had normal GFR greater than 60 and a creatinine around 1.10. No recent urinalysis. His lisinopril was held with his rising creatinine. - Patient is uncontrolled type II diabetic who presents with slight elevation in his creatinine slight diminish in his GFR setting of hospitalization. He is high risk for progressive renal disease as he is uncontrolled type II diabetic is at risk of developing diabetic nephropathy. His current presentation is likely prerenal, review of his urinary output demonstrates poor recording. 02/01: Renal function slightly improved with a creatinine 1.41 and GFR greater than 60, continue to hold Lasix and monitor renal function daily. Patient likely has a GFR roughly around 60. Retroperitoneal ultrasound: IMPRESSION: 1. Normal sonographic appearance of the kidneys. 2. Urinary bladder wall thickening potentially due to incomplete distention, chronic outlet obstruction, and/or cystitis. 3. Incidental note of hepatic steatosis. 02/02: Renal function continues to improve, likely prerenal as he is improving with IV fluids and oral intake. As the patient is nearing baseline nephrology will sign off, please contact with any further questions. Plan: - Urinalysis with microscopy, pending - Urine creatinine, urine sodium, pending - Serum uric acid level, pending - Strict intake and output monitoring, daily standing weights - Avoid nephrotoxic medications and renally dose antibiotics - Continue to hold lisinopril and blood pressure stable. - Obtain appropriate glucose control (2) Obesity (BMI 30-39.9) Current Visit: No Status: Chronic 51-year-old male with central obesity and BMI of 34.0. Mr. Rodriguez of benefit from dietary modifications to include a DASH diet, moderate exercise and lifestyle changes to improve longevity and obtain better control of his diabetes. (3) DM type 2 (diabetes mellitus, type 2) Current Visit: No Status: Chronic Mr. Rodriguez 51-year-old male with uncontrolled type 2 diabetes. A1c in the outpatient setting 2 months ago was greater than 10. His current glucoses are around 250-300. Plan: - Management per primary team with goal glucose below 140. - Diabetic diet Qualifiers: Diabetes mellitus complication status: with unspecified complications Diabetes mellitus cargo surveyor insulin use: with senior living use Qualified Code(s) : E11.8 - Type 2 diabetes mellitus with unspecified complications; Z79.4 - correction (current) use of insulin (4) Hyperlipidemia LDL goal <70 Current Visit: Yes Status: Acute Review of outpatient records demonstrates that lab findings from 11/02/2016 demonstrating a cholesterol of 227, HDL 27 and LDL TNP. Triglycerides 408 down from 452 back in June 2016. - Continue atorvastatin high dose. - Low-cholesterol diet. - May benefit from initiation of Ezetimbe Subjective Principal diagnosis: ROSSANA Interval history: Mr. oRdriguez has been seen and evaluated this morning. He denies any discomforts or problems. He he states that he is feeling well this morning but had a seizure last night so he was moved closer to the nursing station. He said he has had a seizure each night and notices when he wets the bed. When asked about his urination he says that he has been urinating but not as frequently as he would like. He denies adequate oral intake in the last 24 hours. He denies any urinary burning, blood in his urine, feeling of diminished stream or difficulty starting and stopping urination. Objective - Vital Signs Vital signs: Vital Signs Temp Pulse Resp BP Pulse Ox 02/02/17 06:31 97.7 F 72 18 154/88 98 02/02/17 04:17 97.1 F L 64 16 142/95 97 02/01/17 23:47 97.5 F L 75 18 130/89 98 02/01/17 19:49 97.7 F 79 18 109/75 97 02/01/17 15:31 97.6 F 75 18 124/76 97 02/01/17 11:36 97.6 F 75 16 116/77 97 Intake and Output 02/01/17 02/02/17 02/02/17 23:59 07:59 15:59 Intake Total 1000 / 1000 Output Total 875 / 875 1475 / 1475 Balance -875 / -875 -475 / -475 Intake: IV Fluids 1000 / 1000 0.9 % Sodium Chloride 1,000 ML 1000 / 1000 @ 100 mls/hr IVC .Q10H MELITA Rx#: [id number] Output: Urine 875 / 875 1475 / 1475 Other: Blood Glucose* 282 216 - General Appearance Exam: General: Patient alert, awake, oriented 3, interactive, in no acute distress HEENT: Normocephalic, atraumatic, pupils equal reactive to light, nasal cavity patent and open septum median position, oral mucosa moist, uvula midline, neck supple trachea midline no palpable lymphadenopathy, no thyromegaly. Chest: Symmetric bilateral correlating with respiratory effort, effort nonlabored. Cardiac: Regular rate and rhythm, positive S1 and S2. no bruits appreciated bilateral carotids, Radial pulses 2+ bilateral, posterior tibial and dorsal pedal pulses 2+ bilateral. Respiratory: Clear to auscultation all lung hobson Abdomen: Soft, nontender, positive bowel sounds, no palpable masses appreciated on examination Extremities: Symmetric bilateral, bilateral lower extremities without erythema or edema patient moving all 4 extremities spontaneously. Neurologic: No focal deficits appreciated on examination. Face symmetric, muscle strength symmetric bilateral upper and lower extremities. - Lab 02/02/17 08:50 02/02/17 08:50 Most recent lab results Calcium 8.6 mg/dL (8.6-10.8) 02/01/17 05:07 Magnesium 1.6 mg/dL (1.6-2.6) 01/30/17 04:29 - VTE Documentation of Mechanical Device: Intermittent pneumatic compression device Consult Discharge Plan - Plan Referrals: Eric Castillo MD [Primary Care Provider] - 02/07/17 9:45 am
[2017-02-02] MEDS: Fenofibrate 54 MG TABLET PO SCH (08:53)
[2017-02-02] MEDS: Gabapentin 100 MG CAPSULE PO SCH ×2 (08:53→21:22)
[2017-02-02] MEDS: Topiramate 100 MG TABLET PO SCH ×2 (08:53→21:22)
[2017-02-02] MEDS: Aspirin 81 MG TAB.CHEW PO SCH (08:54)
[2017-02-02] MEDS: FLUoxetine 20 MG CAPSULE PO SCH (08:54)
[2017-02-02] MEDS: Carbidopa/Levodopa 25/100 TABLET PO SCH ×2 (08:54→21:21)
[2017-02-02] MEDS: Divalproex (12 HR) 500 MG TABLET PO SCH ×2 (08:55→21:21)
[2017-02-02] MEDS: VICTOZA 1.2 MG SQ SCH (08:55)
[2017-02-02] MEDS: Insulin LISPRO 300 UNITS/3 ML VIAL SQ SCH ×4 (08:59→21:41)
[2017-02-02 09:24] LABS: Hematocrit 37.5 % (37.5-50.1); Hemoglobin 12.2 g/dL (12.9-16.9); Mean Corpuscular HGB Conc 32.5 g/dL (31.6-35.5); Mean Corpuscular Hemoglobin 26.9 pg (28.0-33.3); Mean Corpuscular Volume 82.6 fL (83.0-100.0); Mean Platelet Volume 10.8 fL (9.4-12.4); Platelet Count 196 K/mcL (140-400); Red Blood Count 4.54 M/mcL (4.19-5.50)
[2017-02-02 09:32] LABS: Alanine Aminotransferase 11 Units/L (0-55); Albumin 3.5 g/dL (3.5-5.0); Alkaline Phosphatase 79 Units/L (38-126); Aspartate Amino Transferase 6 Units/L (5-34); BUN/Creatinine Ratio 10 (6-26); Bilirubin,Total 0.2 mg/dL (0.2-1.2); Blood Urea Nitrogen 12 mg/dL (8-26); Calcium 9.1 mg/dL (8.6-10.8); Carbon Dioxide 22 mEq/L (19-29); Chloride 110 mEq/L (98-109); Globulin 3.5 g/dL (2.4-3.5); Glucose 225 mg/dL (70-99); Osmolality,Calculated 291 (280-300); Potassium 4.2 mEq/L (3.5-4.5); Sodium 137 mEq/L (136-145); eGFR For African Americans > 60 (> 60); eGFR For Non-African Americans > 60 (> 60)
--- NOTE | 2017-02-02 16:06 | Internal Med Progress Note ---
Date of Encounter: 02/02/17 Time of Encounter: 16:14 - Assessment and plan (1) Syncope and collapse Current Visit: Yes Status: Acute Assessment and plan: Kris Rodriguez is a 51-year-old male with past medical history diabetes, seizure disorder, hypertension and tremors who presented to [facility] on with complaints of falling and passing out. He was placed in observation status for further workup and treatment. 1. Near syncope with collapse: reports episodes of entire body weakness resulting in falls. Episodes have not been witnessed therefore he is not sure if he has lost consciousness. Had similar symptoms in 2016 with a subsequent event monitoring that found no significant cardiac events. 01/18/2017 echo and bilateral carotids unremarkable. Now with recurrent episodes. Etiology unknown at this time. Evaluated by neurology who does not feel episodes are related to seizures or a primary neurologic disorder. Evaluated by psychiatry who recommended. BP has been soft, borderline while inpatient, this could be contributing to episodes. LINQ placed 01/31/17 per Cardiology. Continue to monitor, fall precautions. 2. Seizure disorder: Per history. Evaluated by neurology who does not suspect current syncope episodes are related to seizure disorder. Depakote level 41. Depakote dose increased by 500 mg daily on 01/31/2017. Patient thinks he had a seizure overnight on 01/31 and 02/01 as he was incontinent of urine. Seizures not witnessed by staff. Repeat Depakote level 112. Continue Depakote, seizure precautions. Neurology following. EEG pending. 3. Depression: per hx. on multiple psychiatric medications. Evaluated by psychiatry who recommended 1181 of the TCAs as this can lower the seizure threshold. Distantly Geodon can prolong QTc interval and in combination with TCAs could predispose him to cardiac arrhythmias. Tofranil and Elavil need to be tapered over 7-14 days, dose decreased by half on 02/02/17. Continue with gradual dose reduction. Needs to follow up with psychiatry outpatient 4. ROSSANA: Cr 1.4; baseline appears normal. Home JOSH held on arrival. Evaluated by nephrology who noted at high risk for progressive renal disease with uncontrolled diabetes. Renal ultrasound unremarkable. Continue IV fluids, holding home Josh. UA, urine electrolytes pending. Nephrology following. Cr improved on 02/02 5. Hyponatremia: Na 130; appears neurologically intact. Continue IV fluids. Monitor repeat CMP. 6. Diabetes: Per history. Blood sugars uncontrolled. Hgb A1c 9%. Holding home metformin. High dose SSI. Add long-acting insulin at at bedtime. Monitor blood sugar and titrate PRN. 7. Hypertension: Per history but BP has been soft/borderline. Holding home BP medications as he presented with near syncope and collapse. Continue IV fluids. Monitor BP and resume as BP allows. 8. Tremors: hx significant tremors in the past and has been evaluated by neurology as an outpatient and has been taking Sinemet with significant improvement in his symptoms. Neurology concern for possible early sign of Parkinson's as he is responding well to Sinemet. Neurology also noted patient could also have associated dysautonomia. He is established with neurologist at [place]. We will need to follow up outpatient. 9. DVT prophylaxis: Heparin (2) DM type 2 (diabetes mellitus, type 2) Current Visit: No Status: Chronic Qualifiers: Diabetes mellitus complication status: with unspecified complications Diabetes mellitus longterm insulin use: with longterm use Qualified Code(s) : E11.8 - Type 2 diabetes mellitus with unspecified complications; Z79.4 - correction (current) use of insulin (3) NAKIA (obstructive sleep apnea) Current Visit: No Status: Chronic (4) Seizure disorder Current Visit: No Status: Chronic (5) Tremors of nervous system Current Visit: Yes Status: Acute (6) DVT prophylaxis Current Visit: No Status: Acute - Subjective Interval history: Seen and examined at bedside. He tells me he thinks he had another seizure last night as he woke up was incontinent of urine. Seizure was not witnessed by staff. He is tired otherwise has no complaints. He would like to go home today but is agreeable to stay for further treatment if needed. at bedside and updated. Patient and aware that Elavil and Tofranil can lower seizure threshold threshold and that psychiatry and recommended discontinuing one of the medications. Both in agreement. - Constitutional Vitals: Temp Pulse Resp BP Pulse Ox 97.7 F 72 14 117/83 98 02/02/17 10:23 02/02/17 10:23 02/02/17 10:23 02/02/17 10:23 02/02/17 10:23 General appearance: Present: A&O X 3, morbidly obese, no acute distress - Head Head exam: Present: atraumatic, normocephalic - Eye Eye exam: Present: PERRL, conjuntiva pink, sclera anicteric Pupils: Present: PERRL - Neck Neck exam general surgery: Present: supple, trachea midline. Absent: lymphadenopathy - Respiratory Respiratory exam: Present: CTAB. Absent: accessory muscle use, rales, rhonchi, wheezes - Cardiovascular Cardiovascular exam: Present: RRR, +S1, +S2. Absent: diastolic murmur, gallop, rubs, systolic murmur Additional comments: LING insertion site C/D/I - GI/Abdominal GI/Abdominal exam: Present: normal bowel sounds, soft, no peritoneal signs. Absent: distended, tenderness - Extremities Exam Extremities exam: Present: warm, radial pulses palpable and symmetrical. Absent : calf tenderness, cyanotic, pedal edema - Neurological Exam Neurological exam: Present: CN II-XII intact, oriented X3, no focal deficits. Absent: pronater drift, facial droop, speech deficit - Skin Skin exam: Present: dry, intact Internal Medicine: Result - Labs CBC & Chem 7: 02/02/17 08:50 02/02/17 08:50 Labs: Short CBC 02/02/17 Range/Units 08:50 WBC 3.1 L (4.3-11.1) K/mcL Hgb 12.2 L (12.9-16.9) g/dL Hct 37.5 (37.5-50.1) % Plt Count 196 (140-400) K/mcL BMP 02/02/17 08:50 Sodium 137 Potassium 4.2 Chloride 110 H Carbon Dioxide 22 BUN 12 Creatinine 1.18 Glucose 225 H Calcium 9.1 Liver Function 02/02/17 Range/Units 08:50 Total Bilirubin 0.2 (0.2-1.2) mg/dL AST 6 (5-34) Units/L ALT 11 (0-55) Units/L Alkaline Phosphatase 79 (38-126) Units/L Albumin 3.5 (3.5-5.0) g/dL - ABG Interpretation ABG results: PT/INR, D-dimer D-Dimer 369 ng/mLFEU (0-500) 01/29/17 04:22 - VTE Documentation of Mechanical Device: Intermittent pneumatic compression device Consult Discharge Plan - Plan Referrals: Eric Castillo MD [Primary Care Provider] - 02/07/17 9:45 am
--- NOTE | 2017-02-02 16:32 | EEG/EMG/Oth Biometrics Report ---
EEG Procedure Report Date of procedure: 02/01/17 EEG Procedure: Routine EEG Procedure Note: Routine 18-channel digital EEG was obtained to rule out any seizure activity or focal abnormalities. FINDINGS: Background rhythm during awake stage shows well-organized, well- developed, average voltage 8 to 9 hertz alpha activity in the posterior regions. It blocks with eye opening and it is bilaterally synchronous and symmetrical. No [id number] discharges or any lateralizing abnormalities are seen. Photic stimulation did not produce any abnormalities. intermittent slowing noted during the study. No abnormalities were found during the procedure. Intermittent EMG artifacts were seen. Stage II sleep was not achieved. IMPRESSION: Normal awake study. No epileptiform discharges or any other paroxysmal activities or focal abnormalities seen. Note that normal EEG does not exclude the diagnosis of seizures or epilepsy, Clinical correlation is recommended.
[2017-02-02 18:22] LABS: Bilirubin,Urine Negative (Negative); Blood,Urine Negative (Negative); Clarity,Urine Clear (Clear); Color,Urine Yellow (Yellow); Glucose,Urine (UA) >=1000 mg/dL (Normal); Ketones,Urine Negative (Negative); Leukocyte Esterase,Urine Negative (Negative); Nitrite,Urine Negative (Negative); PH,Urine 7.5 pH Units (5.0-8.0); Protein,Urine Negative (Neg-Trace); Specific Gravity,Urine 1.024 (1.010-1.025); Urobilinogen,Urine Normal (Normal)
[2017-02-02 19:16] LABS: CK-MB (CK isoenzymes) 0 % (0-4); CK-MM (CK-isoenzymes) 100 % (96-100)
[2017-02-02 19:16] LABS: CK-MB (CK isoenzymes) 0 % (0-4); CK-MM (CK-isoenzymes) 100 % (96-100)
[2017-02-02] MEDS: Primidone 50 MG TABLET PO SCH (21:21)
[2017-02-02] MEDS: Famotidine 20 MG TABLET PO SCH (21:23)
[2017-02-02] MEDS: *HR* LORazepam 0.5 MG TABLET PO SCH (21:23)
[2017-02-02] MEDS: Insulin DETEMIR 100 UNIT/ML X5UNITS SQ SCH (21:41)
[2017-02-03 03:59] LABS: Hematocrit 32.6 % (37.5-50.1); Hemoglobin 10.7 g/dL (12.9-16.9); Mean Corpuscular HGB Conc 32.8 g/dL (31.6-35.5); Mean Corpuscular Hemoglobin 26.8 pg (28.0-33.3); Mean Corpuscular Volume 81.7 fL (83.0-100.0); Mean Platelet Volume 10.3 fL (9.4-12.4); Platelet Count 186 K/mcL (140-400); Red Blood Count 3.99 M/mcL (4.19-5.50); Red Cell Distribution Width 14.2 % (11.5-14.5)
[2017-02-03 04:23] LABS: Alanine Aminotransferase 6 Units/L (0-55); Alkaline Phosphatase 59 Units/L (38-126); Aspartate Amino Transferase 8 Units/L (5-34); BUN/Creatinine Ratio 11 (6-26); Blood Urea Nitrogen 12 mg/dL (8-26); Calcium 8.7 mg/dL (8.6-10.8); Carbon Dioxide 18 mEq/L (19-29); Chloride 111 mEq/L (98-109); Globulin 3.1 g/dL (2.4-3.5); Glucose 210 mg/dL (70-99); Osmolality,Calculated 288 (280-300); Potassium 4.4 mEq/L (3.5-4.5); Sodium 136 mEq/L (136-145); Total Protein 6.1 g/dL (6.0-8.3); eGFR For African Americans > 60 (> 60); eGFR For Non-African Americans > 60 (> 60)
[2017-02-03 04:25] LABS: Bilirubin,Total < 0.2 mg/dL (0.2-1.2)
[2017-02-03] MEDS: *HR* Heparin 5,000 UNIT/ML VIAL SQ SCH (06:01)
[2017-02-03 07:18] VITALS: BP 130/89
[2017-02-03] MEDS: Topiramate 100 MG TABLET PO SCH (09:43)
[2017-02-03] MEDS: Fenofibrate 54 MG TABLET PO SCH (09:43)
[2017-02-03] MEDS: Aspirin 81 MG TAB.CHEW PO SCH (09:43)
[2017-02-03] MEDS: Gabapentin 100 MG CAPSULE PO SCH (09:44)
[2017-02-03] MEDS: FLUoxetine 20 MG CAPSULE PO SCH (09:44)
[2017-02-03] MEDS: VICTOZA 1.2 MG SQ SCH (09:44)
[2017-02-03] MEDS: Divalproex (12 HR) 500 MG TABLET PO SCH (09:44)
[2017-02-03] MEDS: Carbidopa/Levodopa 25/100 TABLET PO SCH (09:44)
[2017-02-03] MEDS: Insulin LISPRO 300 UNITS/3 ML VIAL SQ SCH (09:45)
--- NOTE | 2017-02-03 09:46 | Neurology Progress Note ---
Date of Encounter: 02/03/17 Time of Encounter: 07:43 Assessment and Plan (1) Near syncope Current Visit: No Status: Acute (2) Seizure disorder Current Visit: No Status: Chronic Patient has an history of seizure disorder and has been on medication including Depakote and Topamax has been taking for long times suggested to continue on them at this time EEG did not show any evidence of seizure activity. He continued to have dizzy spells predominantly at night at this time it is not clear that indeed these true epileptic seizures or not. His level is quite therapeutic he has been maintained on Depakote and Topamax EEG is negative at this time I would not recommend addition of any other new medication he is also getting cardiac workup for syncope is been getting loop recorder inserted At this time I would recommend that patient may benefit from long-term video EEG monitoring and particularly to localize these as spells that indeed these true epileptic seizures that he has been having during night or perhaps these are some other kind of his spell as he is already on 2 different anticonvulsive medication at therapeutic levels Suggest that he should continue for now. He did have a neurologist that he follows up in [place] for quite some time he could follow up with them for long-term video EEG monitoring.. (3) NAKIA (obstructive sleep apnea) Current Visit: No Status: Chronic (4) Tremors of nervous system Current Visit: Yes Status: Acute Subjective Principal diagnosis: ROSSANA Interval history: Overall patient is a stable but continued to have these spells predominantly in sleep at night according to him he may had another seizure last night and he did have some urinary incontinence though no jerking was reported did not have any spell during the daytime. EEG has been negative he has been maintained on Topamax and Depakote level was therapeutic Objective - Constitutional Vitals: Temp Pulse Resp BP Pulse Ox 97.6 F 77 16 130/89 100 02/03/17 07:17 02/03/17 07:17 02/03/17 07:17 02/03/17 07:17 02/03/17 07:17 - Neurological Exam Motor Examination: Present: full strength in all major muscle groups Motor examination - left side: 5/5: deltoids, biceps, triceps, wrist flexion, wrist extension, hip flexors, timber estimator, quadriceps, tibialis Anterior, toe extension (EHL), plantarflexion Mental Status Examination: Present: awake, alert, oriented to person, oriented to place, oriented to time, follows commands appropriately, answers questions appropriately, no agnosia, no aphasia, no aproxia Cranial nerve examination: Present: PERRL, EOMI, visual hobson intact, corneal reflexes brisk symmetrically, sensory to face intact, mastication intact, no facial asymmetry is present, no dysarthria, hearing is intact symmetrically, soft palate elevates bilaterally upon phonation, gag reflex intact, flexes SCM and trapezius muscles symmetrically with full power, tongue protrudes midline, no atrophy or facial fasiculations present Cerebellar examination: Present: no dysmetria, performs finger to nose and heel to blair symmetrically without ataxia, no gait ataxia, no truncal ataxia, no difficulty with rapid alternating movements - VTE Documentation of Mechanical Device: Intermittent pneumatic compression device Results - Laboratory Findings CBC and BMP: 02/03/17 03:38 02/03/17 03:38 Abnormal lab findings: Abnormal lab results WBC 3.2 K/mcL (4.3-11.1) L 02/03/17 03:38 RBC 3.99 M/mcL (4.19-5.50) L 02/03/17 03:38 Hgb 10.7 g/dL (12.9-16.9) L D 02/03/17 03:38 Hct 32.6 % (37.5-50.1) L 02/03/17 03:38 MCV 81.7 fL (83.0-100.0) L 02/03/17 03:38 MCH 26.8 pg (28.0-33.3) L 02/03/17 03:38 Immature Plt Fraction 6.4 % (1.1-6.1) H 01/31/17 02:35 Chloride 111 mEq/L (98-109) H 02/03/17 03:38 Carbon Dioxide 18 mEq/L (19-29) L 02/03/17 03:38 Glucose 210 mg/dL (70-99) H 02/03/17 03:38 POC Glucose 246 (58-89) H 02/02/17 18:41 Hemoglobin A1c 9.2 % (-5.6) H 01/31/17 02:35 Uric Acid 2.8 mg/dL (3.5-7.2) L 02/03/17 03:38 Total Bilirubin < 0.2 mg/dL (0.2-1.2) L 02/03/17 03:38 Albumin 3.0 g/dL (3.5-5.0) L 02/03/17 03:38 Albumin/Globulin Ratio 1.0 (1.1-2.2) L 02/03/17 03:38 Urine Glucose (UA) >=1000 mg/dL (Normal) H 02/02/17 18:05 Ur Barbiturates Screen Positive ng/mL (Ugsdpf=701) H 01/30/17 18:36 Valproic Acid 112.33 mcg/mL (50-100) H 02/02/17 08:50 Consult Discharge Plan - Plan Referrals: Eric Castillo MD [Primary Care Provider] - 02/07/17 9:45 am
--- NOTE | 2017-02-03 11:44 | Discharge Summary ---
Date of Encounter: 02/03/17 Time of Encounter: 11:33 - Discharge Diagnosis (1) Syncope and collapse Priority: Primary Status: Acute Comments: Kris Rodriguez is a 51-year-old male with past medical history diabetes, seizure disorder, hypertension and tremors who presented to [facility] on with complaints of falling and passing out. He was placed in observation status for further workup and treatment. The patient continued to have possible breakthrough seizures and was transferred to [facility] for long-term video EEG monitoring and neurologic consultation. 1. Near syncope with collapse: reports episodes of entire body weakness resulting in falls. Episodes have not been witnessed therefore he is not sure if he has lost consciousness. Had similar symptoms in 2016 with a subsequent event monitoring that found no significant cardiac events. 01/18/2017 echo and bilateral carotids unremarkable. Now with recurrent episodes. Etiology unknown at this time. Evaluated by neurology who does not feel episodes are related to seizures or a primary neurologic disorder. Evaluated by psychiatry who recommended medication changes as noted below. BP has been soft/borderline, possibly contributing to episodes. LINQ placed 01/31/17 per Cardiology. Continue to monitor, fall precautions. 2. Seizure disorder: Per history. Evaluated by neurology who does not suspect current syncope episodes are related to seizure disorder. Depakote level 41 on 01/31/2017, Depakote increased by 500 mg daily. Repeat depakote level 112 on . Patient reported having a seizure overnight on 01/31, 02/01 and 02/03. Says he was incontinent of urine and woke up confused which are consistent with past post-ictal states. Seizures have not been witnessed by staff. Evaluated by Neurology who recommended continuing Depakote, Topamax and long-term video EEG monitoring. Patient does not feel comfortable going home and [place] does not have the ability to do long-term video EEG monitoring. Patient follows with Dr. Bucio at [facility]. 3. Depression: per hx. on multiple psychiatric medications. Evaluated by psychiatry who recommended one of the TCAs as this can lower the seizure threshold. Geodon can prolong QTc interval in combination with TCAs which could predispose him to cardiac arrhythmias (no prolonged QTC or arrhythmia noted on telemetry). Tofranil and Elavil need to be tapered over 7-14 days, dose decreased by half on 02/02/17. Continue with gradual dose reduction. Needs to follow up with psychiatry outpatient 4. ROSSANA: Cr 1.4; baseline appears normal. Home JOSH held on arrival. Evaluated by nephrology who noted at high risk for progressive renal disease with uncontrolled diabetes. Renal ultrasound unremarkable. Continue IV fluids, holding home Josh. UA, urine electrolytes pending. Nephrology following. Cr 1.1 on 02/03 5. Hyponatremia: Na 130; appears neurologically intact. Na normalized with IV fluids. Monitor repeat CMP. 6. Diabetes: Per history. Blood sugars uncontrolled. Hgb A1c 9%. Holding home metformin. High dose SSI. Add long-acting insulin at at bedtime. Monitor blood sugar and titrate PRN. 7. Hypertension: Per history but BP has been soft/borderline. Holding home BP medications as he presented with near syncope and collapse. Continue IV fluids. Monitor BP and resume as BP allows. 8. Tremors: hx significant tremors in the past and has been evaluated by neurology as an outpatient and has been taking Sinemet with significant improvement in his symptoms. Neurology concern for possible early sign of Parkinson's as he is responding well to Sinemet. Neurology also noted patient could also have associated dysautonomia. He is established with neurologist at [place]. We will need to follow up outpatient. 9. DVT prophylaxis: Heparin (2) DM type 2 (diabetes mellitus, type 2) Priority: Primary Status: Chronic Qualifiers: Diabetes mellitus complication status: with unspecified complications Diabetes mellitus intermediate insulin use: with exterminator helper use Qualified Code(s) : E11.8 - Type 2 diabetes mellitus with unspecified complications; Z79.4 - superintendent marine oil terminal (current) use of insulin (3) NAKIA (obstructive sleep apnea) Priority: Primary Status: Chronic (4) Seizure disorder Priority: Primary Status: Chronic (5) Tremors of nervous system Priority: Primary Status: Acute - Discharge Medications Home Medications: Atorvastatin Calcium [Lipitor] 80 mg PO DAILY 12/18/15 [History] FLUoxetine HCl [Prozac] 80 mg PO QAM 12/18/15 [History] Famotidine [Pepcid] 40 mg PO HS 12/18/15 [History] Gabapentin [Neurontin] 200 mg PO BID 12/18/15 [History] LORazepam [Ativan] 0.5 mg PO HS 12/18/15 [History] Liraglutide [Victoza 2-Norman] 1.2 mg SQ QAM 12/18/15 [History] Meclizine HCl [Verticalm] 25 mg PO DAILY 12/18/15 [History] Nitroglycerin [Nitrostat] 0.4 mg SL AD PRN 12/18/15 [History] Onabotulinumtoxina [Botox] 200 unit IM [id number] 12/18/15 [History] Pantoprazole Sodium [Protonix] 40 mg PO BID 12/18/15 [History] Primidone [Mysoline] 50 mg PO HS 12/18/15 [History] SUMAtriptan Succinate [Imitrex] 100 mg PO AD PRN 12/18/15 [History] Tamsulosin [Flomax] 0.4 mg PO HS 12/18/15 [History] Topiramate [Topamax] 150 mg PO BID 12/18/15 [History] Ziprasidone HCl [Geodon] 120 mg PO HS 12/18/15 [History] Carbidopa/Levodopa 25 [Sinemet 25] 1 each PO BID 12/19/15 [History] Fenofibrate [Lofibra] 160 mg PO DAILY 12/19/15 [History] Butalbital/Aspirin/Caffeine [Fiorinal 50-325-40 mg Capsule] 1 cap PO QID PRN [History] Dexlansoprazole [Dexilant] 60 mg PO DAILY 01/18/17 [History] Insulin ASPART [NovoLOG] 0 unit SQ TID PRN 01/18/17 [History] Insulin Glargine [Lantus] 10 unit SQ HS 01/18/17 [History] Oxaprozin [Daypro] 600 mg PO BID 01/18/17 [History] Promethazine [Phenergan] 25 mg PO Q8HR PRN 01/18/17 [History] Amitriptyline [Elavil] 10 mg PO HS tablet 02/03/17 [Rx] Divalproex (12 HR) [Depakote (12 HR)] 1,000 mg PO QAM tablet. 02/03/17 [Rx] Divalproex (12 HR) [Depakote (12 HR)] 1,500 mg PO HS tablet. 02/03/17 [Rx] Imipramine HCl [Tofranil] 25 mg PO HS tablet 02/03/17 [Rx] Allergies/Adverse Reactions: 3 Allergy/AdvReac Type Severity Reaction Status Date / Time acetaminophen [From Percocet] AdvReac See Verified 01/14/17 09:05 Comments Influenza Virus Vaccines AdvReac Hives Verified 01/14/17 09:05 Oxycodone [From Percocet] AdvReac See Verified 01/14/17 09:05 Comments Pneumococcal Vaccine AdvReac Hives Verified 01/14/17 09:05 Zolpidem [From Ambien] AdvReac See Verified 01/14/17 09:05 Comments Procedures/tests Complete & Pending: Procedures Performed prior 72 hours Category Date Time Status CT head/brain wo con [CT] Stat Cat Scan 01/31/17 21:29 Completed CL Insert Loop Recorder [CL] Routine Pre School Manager 01/31/17 12:27 Completed Retroperitoneal Ultrasound - Complete [US Exams 01/31/17 19:00 Completed retroperitoneal comp] [US] Routine Date of admission: 01/29/17 06:46 Primary care physician: Eric Castillo MD Consults: 01/29/17 08:57 Consult to Occupational Therapy [CONS] Routine Comment: Evaluate, develop and implement POC Reason for Consult: recurrent falls Consult to Physical Therapy [CONS] Routine Comment: Evaluate, develop and implement POC Reason for Consult: recurrent falls 01/31/17 07:31 Consult to Media Theorist And Author Of [CONS] Routine Reason for SW Consult: readmit 01/31/17 08:52 Consult to Nephrology [CONS] Routine Consulting Provider: Kidney Ananya/ORITRISTEN/PABLO/BROWN Reason for Consult: AK I, hyponatremia Call Completed: Yes Consult to Psychiatry [CONS] Routine Consulting Provider: Psychiatry [place] Reason for Consult: Recurrent syncopal episodes with history of bipolar, depression on multiple psychiatric and possibly offending medications. Does not follow with psychiatry. ? Psych component to syncopal episodes and medication review please Call Completed: Yes 01/31/17 12:25 Consult to Electrophysiology (EP) [CONS] Routine Consulting Provider: Electrophysiology Ananya Reason for Consult: loop insertion Call Completed: Yes 02/02/17 11:29 Consult to Interpret Exam [CONS] Routine Consulting Provider: Gutierrez Manuel I Consult to Interpret Exam: Interpret EEG Discharging clinician: Ariadne Diamond Anticipated date of discharge: 02/03/17 - Patient Status Disposition: Transfer Short-Term Hosp Condition: Good Functional capacity at discharge: uses cane/walker Overall status at discharge: patient is not back to baseline - Discharge Instructions Follow Up With: Eric Castillo MD [Primary Care Provider] - 02/07/17 9:45 am - Diet and Activity Activity: as per physical therapy Diet: diabetic diet, low fat, low cholesterol Interval History: Seen and examined at bedside, patient says he had another seizure last night. Was incont of urine again and feels weak and confused which is consistent with past seizures. Patient is concerned and does not feel safe going home. Advised patient of Neurology recommendations and he is agreeable to transfer to [facility] for video EEG monitoring. Discussed with Dr. Reese and will proceed with transfer to [facility]. Spoke with transfer center and patient was accepted by hospitalist team at [facility]. Hospital course: See assessment and plan for hospital course - Time Spent with Patient Total time spent providing and/or coordinating discharge services: Greater than 30 minutes (58 minutes spent on discharge) - Constitutional Vitals: Temp Pulse Resp BP Pulse Ox 97.6 F 77 16 130/89 100 02/03/17 07:17 02/03/17 07:17 02/03/17 07:17 02/03/17 07:17 02/03/17 09:45 General appearance: Present: A&O X 3, morbidly obese, no acute distress - Head Head exam: Present: atraumatic, normocephalic - Eye Eye exam: Present: PERRL, conjuntiva pink, sclera anicteric Pupils: Present: PERRL - Neck Neck exam general surgery: Present: supple, trachea midline. Absent: lymphadenopathy - Respiratory Respiratory exam: Present: CTAB. Absent: accessory muscle use, rales, rhonchi, wheezes - Cardiovascular Cardiovascular exam: Present: RRR, +S1, +S2. Absent: diastolic murmur, gallop, rubs, systolic murmur - GI/Abdominal GI/Abdominal exam: Present: normal bowel sounds, soft, no peritoneal signs. Absent: distended, tenderness - Extremities Exam Extremities exam: Present: warm, radial pulses palpable and symmetrical. Absent : calf tenderness, cyanotic, pedal edema - Neurological Exam Neurological exam: Present: CN II-XII intact, oriented X3, no focal deficits. Absent: pronater drift, facial droop, speech deficit - Skin Skin exam: Present: dry, intact - VTE Documentation of Mechanical Device: Intermittent pneumatic compression device
[2017-02-03 15:32] LABS: CK Total (Ck Isoenzymes) 38 U/L (20-200); CK-BB (CK isoenzymes) 0 % (0-0)
[2017-02-03 15:32] LABS: CK Total (Ck Isoenzymes) 34 U/L (20-200); CK-BB (CK isoenzymes) 0 % (0-0)
== END 2017-02-03 12:02 | disposition short-term general hospital (02) ==
LOC: EMEROO 02:01 → 3BNU 02:01
PROVIDERS: ADMIT Hospitalist; ATTEND Registered Nurse

== ENCOUNTER 2019-02-23 10:01 | Observation (INO) ==
[2019-02-23] MEDS ORDERED: 0.9 % Sodium Chloride 1,000 ML IVC ONE (10:29)
[2019-02-23] MEDS ORDERED: Ondansetron 4 MG/2 ML VIAL IVP ONE ×2 (10:29→11:34)
[2019-02-23 10:55] LABS: Hematocrit 39.2 % (37.5-50.1); Hemoglobin 13.7 g/dL (12.9-16.9); Mean Corpuscular HGB Conc 34.9 g/dL (31.6-35.5); Mean Corpuscular Volume 82.9 fL (83.0-100.0); Mean Platelet Volume 11.7 fL (9.4-12.4); Platelet Count 145 K/mcL (140-400); Red Blood Count 4.73 M/mcL (4.19-5.50); Red Cell Distribution Width 12.8 % (11.5-14.5); White Blood Count 2.2 K/mcL (4.3-11.1)
[2019-02-23 11:07] LABS: Calcium 9.1 mg/dL (8.6-10.3); Potassium 3.1 mEq/L (3.5-5.1)
[2019-02-23 11:21] LABS: Lymphocytes # 0.4 K/mcL (0.6-4.6); Monocytes # 0.1 K/mcL (0.0-1.3)
[2019-02-23 11:23] LABS: Dohle Bodies Present (Not Present); Platelet Estimate Normal (Normal); Reactive Lymphocytes Present (Not Present); Toxic Granulation Present (Not Present)
[2019-02-23 11:30] LABS: Bilirubin,Urine Small (Negative); Blood,Urine Negative (Negative); Clarity,Urine Clear (Clear); Color,Urine Dark Yellow (Yellow); Glucose,Urine (UA) >=1000 mg/dL (Normal); Ketones,Urine Trace mg/dL (Negative); Leukocyte Esterase,Urine Negative (Negative); Nitrite,Urine Negative (Negative); Protein,Urine 30 mg/dL (Neg-Trace); Specific Gravity,Urine > 1.030 (1.010-1.025); Urobilinogen,Urine Normal (Normal)
[2019-02-23 11:33] LABS: Bacteria,Urine None Seen per hpf (None-Few); Hyaline Casts,Urine None Seen per lpf (None-Few); Squamous Epithelial Cell,Urine Many per lpf (None-Few)
[2019-02-23 11:49] LABS: Magnesium 1.1 mg/dL (1.6-2.6)
[2019-02-23] MEDS ORDERED: Promethazine 12.5 MG in 0.9 % Sodium Chloride 50 ML IVPB STA (12:23)
[2019-02-23 12:58] LABS: Albumin 4.2 g/dL (3.5-5.7); Albumin/Globulin Ratio 1.4 (1.1-2.2); Bilirubin,Direct 0.3 mg/dL (0.0-0.2); Bilirubin,Indirect 1.1 mg/dL (0.0-1.0); Bilirubin,Total 1.4 mg/dL (0.3-1.0); Globulin 2.9 g/dL (2.4-3.5); Total Protein 7.1 g/dL (6.4-8.9)
[2019-02-23] MEDS: 0.9 % Sodium Chloride w KCl 40 MEQ/1,000 ML MLS IVC SCH ×2 (13:04→21:45)
[2019-02-23] MEDS ORDERED: Ondansetron 4 MG/2 ML VIAL IVP PRN (13:17)
[2019-02-23] MEDS ORDERED: Naloxone 0.4 MG/ML INJ IVP PRN (13:17)
[2019-02-23] MEDS ORDERED: Isovue-370 500 ML BOTTLE IVP ONE (13:23)
[2019-02-23] MEDS ORDERED: D5% in Water 1,000 ML IVC PRN (14:03)
[2019-02-23] MEDS ORDERED: Dextrose Gel 15 GM/37.5 ML TUBE PO PRN ×2 (14:03)
[2019-02-23] MEDS ORDERED: *HR* Dextrose 50 % in Water (Syg) 50 ML SYRINGE IVP PRN (14:03)
[2019-02-23 14:31] LABS: VBG HCO3 21 mEq/L (21-27); VBG PCO2 41 mmHg (41-51); VBG PO2 48 mmHg (25-50)
[2019-02-23 16:04] LABS: Adenovirus F 40/41 PCR Not detected (Not detect); Astrovirus PCR Not detected (Not detect); C.difficile Toxin A/B Gene PCR Not detected (Not detect); Campylobacter by PCR DETECTED (Not detect); Cryptosporidium by PCR Not detected (Not detect); Cyclospora cayetanensis PCR Not detected (Not detect); E. coli O157 by PCR Not detected (Not detect); Entamoeba histolytica PCR Not detected (Not detect); Enteroaggregative E.coli(EAEC) Not detected (Not detect); Enteropathogenic E.coli(EPEC) Not detected (Not detect); Enterotoxigenic E.coli (ETEC) Not detected (Not detect); Giardia lamblia PCR Not detected (Not detect); Norovirus GI/GII PCR Not detected (Not detect); Plesiomonas shigelloides PCR Not detected (Not detect); Rotavirus A PCR Not detected (Not detect); Salmonella PCR Not detected (Not detect); Sapovirus PCR Not detected (Not detect); Shig/EnteroinvasiveE coli EIEC Not detected (Not detect); Shigalike tox-prod E coli STEC Not detected (Not detect); Vibrio PCR Not detected (Not detect); Vibrio cholerae PCR Not detected (Not detect); Yersinia enterocolitica PCR Not detected (Not detect)
[2019-02-23] MEDS: 0.9 % Sodium Chloride 1,000 ML IVC SCH (17:16)
[2019-02-23] MEDS: Insulin LISPRO 300 UNITS/3 ML VIAL SQ SCH ×2 (17:22→21:20)
[2019-02-23] MEDS: Topiramate 25 MG TABLET PO SCH ×2 (18:32→21:14)
[2019-02-23] MEDS: Divalproex (24 HR) 500 MG TABLET PO SCH (21:14)
[2019-02-23] MEDS ORDERED: Melatonin 3 MG TABLET PO ONE (21:16)
[2019-02-24] MEDS: 0.9 % Sodium Chloride w KCl 40 MEQ/1,000 ML MLS IVC SCH ×2 (05:44→09:23)
[2019-02-24 07:02] LABS: Eosinophils # 0.1 K/mcL (0.0-0.6); Hematocrit 31.3 % (37.5-50.1); Hemoglobin 10.8 g/dL (12.9-16.9); Mean Corpuscular HGB Conc 34.5 g/dL (31.6-35.5); Mean Corpuscular Hemoglobin 28.6 pg (28.0-33.3); Mean Platelet Volume 11.6 fL (9.4-12.4); Platelet Count 104 K/mcL (140-400); Red Blood Count 3.77 M/mcL (4.19-5.50); White Blood Count 1.2 K/mcL (4.3-11.1)
[2019-02-24 07:03] LABS: INR 1.1; Prothrombin Time 12.3 Seconds (9.4-12.1)
[2019-02-24 07:21] LABS: Albumin 3.4 g/dL (3.5-5.7); Albumin/Globulin Ratio 1.5 (1.1-2.2); Calcium 8.3 mg/dL (8.6-10.3); Globulin 2.3 g/dL (2.4-3.5); Magnesium 1.8 mg/dL (1.6-2.6); Potassium 3.6 mEq/L (3.5-5.1); Total Protein 5.7 g/dL (6.4-8.9)
[2019-02-24 07:31] LABS: Lymphocytes # 0.4 K/mcL (0.6-4.6); Monocytes # 0.1 K/mcL (0.0-1.3); Neutrophils # 0.6 K/mcL (1.6-8.9)
[2019-02-24 07:32] LABS: Platelet Estimate Slight Decrease (Normal)
[2019-02-24] MEDS: Insulin LISPRO 300 UNITS/3 ML VIAL SQ SCH ×4 (09:47→20:54)
[2019-02-24] MEDS: Carbidopa/Levodopa 25/100 TABLET PO SCH (09:50)
[2019-02-24] MEDS: Topiramate 25 MG TABLET PO SCH ×3 (09:50→20:53)
[2019-02-24] MEDS: Divalproex (12 HR) 250 MG TABLET PO SCH (09:51)
[2019-02-24] MEDS: FLUoxetine 20 MG CAPSULE PO SCH (09:51)
[2019-02-24] MEDS: Fenofibrate 54 MG TABLET PO SCH (09:51)
[2019-02-24] MEDS: amLODIPine 5 MG TABLET PO SCH (09:51)
[2019-02-24] MEDS: 0.9 % Sodium Chloride 1,000 ML IVC SCH (14:56)
[2019-02-24] MEDS: Divalproex (24 HR) 500 MG TABLET PO SCH (20:53)
[2019-02-25 07:16] VITALS: BP 130/87
[2019-02-25] MEDS: 0.9 % Sodium Chloride w KCl 40 MEQ/1,000 ML MLS IVC SCH (07:44)
[2019-02-25 08:47] LABS: Hematocrit 31.9 % (37.5-50.1); Hemoglobin 10.5 g/dL (12.9-16.9); Mean Corpuscular HGB Conc 32.9 g/dL (31.6-35.5); Mean Corpuscular Hemoglobin 28.5 pg (28.0-33.3); Mean Corpuscular Volume 86.7 fL (83.0-100.0); Mean Platelet Volume 11.3 fL (9.4-12.4); Platelet Count 123 K/mcL (140-400); Red Blood Count 3.68 M/mcL (4.19-5.50); Red Cell Distribution Width 13.1 % (11.5-14.5); White Blood Count 1.3 K/mcL (4.3-11.1)
[2019-02-25 09:05] LABS: BUN/Creatinine Ratio 13 (6-26); Blood Urea Nitrogen 14 mg/dL (6-20); Calcium 8.7 mg/dL (8.6-10.3); Carbon Dioxide 22 mEq/L (23-29); Chloride 102 mEq/L (98-107); Glucose 166 mg/dL (70-105); Magnesium 1.7 mg/dL (1.6-2.6); Osmolality,Calculated 280 (280-300); Phosphorous 2.8 mg/dL (2.7-4.5); Potassium 3.9 mEq/L (3.5-5.1); Sodium 133 mEq/L (136-145); eGFR For African Americans > 60 (> 60); eGFR For Non-African Americans > 60 (> 60)
[2019-02-25] MEDS: Insulin LISPRO 300 UNITS/3 ML VIAL SQ SCH (09:31)
[2019-02-25] MEDS: Divalproex (12 HR) 250 MG TABLET PO SCH (09:31)
[2019-02-25] MEDS: FLUoxetine 20 MG CAPSULE PO SCH (09:32)
[2019-02-25] MEDS: Carbidopa/Levodopa 25/100 TABLET PO SCH (09:32)
[2019-02-25] MEDS: amLODIPine 5 MG TABLET PO SCH (09:32)
[2019-02-25] MEDS: 0.9 % Sodium Chloride 1,000 ML IVC SCH (09:32)
[2019-02-25] MEDS: Fenofibrate 54 MG TABLET PO SCH (09:32)
[2019-02-25] MEDS: Topiramate 25 MG TABLET PO SCH (09:32)
== END 2019-02-25 11:03 | disposition home or self-care (01) ==
LOC: EMEROOARM 10:01 → 3BNU 10:01 → SUATTDRO 14:07 → 3BNU 15:05
PROVIDERS: ADMIT Internal Medicine; ATTEND Internal Medicine

== ENCOUNTER 2020-02-23 05:42 | Observation (INO) ==
[2020-02-23] MEDS ORDERED: Aspirin 81 MG TAB.CHEW PO ONE (06:20)
[2020-02-23 07:06] LABS: Hematocrit 38.8 % (37.5-50.1); Immature Granulocytes % 0.5 % (0-4); Mean Corpuscular HGB Conc 33.5 g/dL (31.6-35.5); Mean Corpuscular Hemoglobin 29.6 pg (28.0-33.3); Mean Corpuscular Volume 88.4 fL (83.0-100.0); Mean Platelet Volume 11.1 fL (9.4-12.4); Platelet Count 186 K/mcL (140-400); Red Blood Count 4.39 M/mcL (4.19-5.50); Red Cell Distribution Width 13.2 % (11.5-14.5); White Blood Count 3.9 K/mcL (4.3-11.1)
[2020-02-23 07:07] LABS: Basophils % 0.5 %; Eosinophils # 0.2 K/mcL (0.0-0.6); Eosinophils % 4.3 %; Lymphocytes # 1.5 K/mcL (0.6-4.6); Monocytes # 0.3 K/mcL (0.0-1.3); Monocytes % 7.7 %
[2020-02-23 07:16] LABS: Prothrombin Time 11.7 Seconds (9.4-12.1)
[2020-02-23 07:19] LABS: Activated Partial Thrombo Time 28.3 Seconds (26.0-36.0)
[2020-02-23 07:31] LABS: Alanine Aminotransferase 10 Units/L (7-52); Albumin 4.1 g/dL (3.5-5.7); Albumin/Globulin Ratio 1.8 (1.1-2.2); Alkaline Phosphatase 60 Units/L (34-104); Aspartate Amino Transferase 8 Units/L (13-39); BUN/Creatinine Ratio 12 (6-26); Bilirubin,Direct 0.1 mg/dL (0.0-0.2); Bilirubin,Indirect 0.2 mg/dL (0.0-1.0); Bilirubin,Total 0.3 mg/dL (0.3-1.0); Blood Urea Nitrogen 15 mg/dL (6-20); Calcium 9.5 mg/dL (8.6-10.3); Carbon Dioxide 25 mEq/L (23-29); Chloride 104 mEq/L (98-107); Globulin 2.3 g/dL (2.4-3.5); Glucose 240 mg/dL (70-105); Osmolality,Calculated 289 (280-300); Potassium 3.8 mEq/L (3.5-5.1); Sodium 135 mEq/L (136-145); Total Protein 6.4 g/dL (6.4-8.9); Troponin I < 0.03 ng/mL (< 0.04); eGFR For African Americans > 60 (> 60); eGFR For Non-African Americans 59 (> 60)
[2020-02-23] MEDS ORDERED: Nitroglycerin 1 INCH/GM PACKET TP ONE (07:39)
[2020-02-23] MEDS ORDERED: Acetaminophen 325 MG TABLET PO PRN (08:59)
[2020-02-23] MEDS ORDERED: Ondansetron 4 MG/2 ML VIAL IVP PRN (08:59)
[2020-02-23] MEDS: FLUoxetine 20 MG CAPSULE PO SCH (10:42)
[2020-02-23] MEDS: Divalproex (12 HR) 250 MG TABLET PO SCH (10:42)
[2020-02-23] MEDS: Cyanocobalamin (B-12) 1,000 MCG TABLET PO SCH (10:42)
[2020-02-23] MEDS: amLODIPine 5 MG TABLET PO SCH (10:42)
[2020-02-23] MEDS: valACYclovir 500 MG TABLET PO SCH ×2 (10:42→21:15)
[2020-02-23] MEDS: Gabapentin 400 MG CAPSULE PO SCH ×3 (10:42→21:15)
[2020-02-23] MEDS: Fenofibrate 54 MG TABLET PO SCH (10:48)
[2020-02-23] MEDS ORDERED: D5% in Water 1,000 ML IVC PRN (14:11)
[2020-02-23] MEDS ORDERED: Dextrose Gel 15 GM/37.5 ML TUBE PO PRN ×2 (14:11)
[2020-02-23] MEDS ORDERED: *HR* Dextrose 50 % in Water (Vial) 50 ML VIAL IVP PRN (14:11)
[2020-02-23] MEDS: Insulin LISPRO 300 UNITS/3 ML VIAL SQ SCH (16:53)
[2020-02-23] MEDS: *HR* Heparin 5,000 UNIT/ML VIAL SQ SCH (16:54)
[2020-02-23] MEDS: Sucralfate 1 GM TABLET PO SCH (16:55)
[2020-02-23] MEDS ORDERED: Divalproex (12 HR) 500 MG TABLET PO SCH (21:00)
[2020-02-23] MEDS ORDERED: Insulin DETEMIR 100 UNIT/ML X5UNITS SQ SCH (21:00)
[2020-02-23] MEDS ORDERED: Carbidopa/Levodopa 25/100 TABLET PO SCH (21:00)
[2020-02-23] MEDS ORDERED: Topiramate 25 MG TABLET PO SCH (21:00)
[2020-02-23] MEDS ORDERED: Insulin LISPRO 300 UNITS/3 ML VIAL SQ SCH (21:00)
[2020-02-24 03:36] LABS: Hematocrit 36.9 % (37.5-50.1); Hemoglobin 12.2 g/dL (12.9-16.9); Mean Corpuscular HGB Conc 33.1 g/dL (31.6-35.5); Mean Corpuscular Hemoglobin 28.7 pg (28.0-33.3); Mean Corpuscular Volume 86.8 fL (83.0-100.0); Mean Platelet Volume 10.9 fL (9.4-12.4); Platelet Count 177 K/mcL (140-400); Red Blood Count 4.25 M/mcL (4.19-5.50); Red Cell Distribution Width 13.2 % (11.5-14.5); White Blood Count 3.6 K/mcL (4.3-11.1)
[2020-02-24 04:02] LABS: BUN/Creatinine Ratio 13 (6-26); Blood Urea Nitrogen 15 mg/dL (6-20); Calcium 9.1 mg/dL (8.6-10.3); Carbon Dioxide 22 mEq/L (23-29); Chloride 106 mEq/L (98-107); Chol/HDL Ratio 7.4 (0-4.9); Cholesterol 147 mg/dL (< 200); Glucose 170 mg/dL (70-105); HDL Cholesterol 20 mg/dL (40-59); LDL Cholesterol,Calculated 74 mg/dL (< 100); Magnesium 1.5 mg/dL (1.6-2.6); Osmolality,Calculated 283 (280-300); Potassium 3.9 mEq/L (3.5-5.1); Sodium 134 mEq/L (136-145); Triglycerides 265 mg/dL (< 150); Troponin I < 0.03 ng/mL (< 0.04); eGFR For African Americans > 60 (> 60); eGFR For Non-African Americans > 60 (> 60)
[2020-02-24 04:38] LABS: Estimated Average Glucose 223 mg/dl
[2020-02-24] MEDS: *HR* Heparin 5,000 UNIT/ML VIAL SQ SCH (05:57)
[2020-02-24] MEDS ORDERED: Regadenoson 0.4 MG/5 ML SYRINGE IVP ONE (07:35)
[2020-02-24] MEDS ORDERED: Famotidine 20 MG TABLET PO SCH (09:00)
[2020-02-24] MEDS: Insulin LISPRO 300 UNITS/3 ML VIAL SQ SCH ×2 (10:08→11:35)
[2020-02-24] MEDS: Gabapentin 400 MG CAPSULE PO SCH (10:08)
[2020-02-24] MEDS: Divalproex (12 HR) 250 MG TABLET PO SCH (10:09)
[2020-02-24] MEDS: Sucralfate 1 GM TABLET PO SCH (10:09)
[2020-02-24] MEDS: Cyanocobalamin (B-12) 1,000 MCG TABLET PO SCH (10:09)
[2020-02-24] MEDS: Fenofibrate 54 MG TABLET PO SCH (10:09)
[2020-02-24] MEDS: FLUoxetine 20 MG CAPSULE PO SCH (10:09)
[2020-02-24] MEDS: amLODIPine 5 MG TABLET PO SCH (10:09)
[2020-02-24] MEDS: valACYclovir 500 MG TABLET PO SCH (10:09)
[2020-02-24 11:28] VITALS: BP 119/82
== END 2020-02-24 14:57 | disposition home or self-care (01) ==
LOC: 3BNU 05:42 → EMEROOARM 05:42 → SUATTDRO 09:07 → 3BNU 09:39
PROVIDERS: ADMIT Internal Medicine; ATTEND Internal Medicine

== ENCOUNTER 2021-07-04 20:20 | Inpatient (IN) ==
[2021-07-04] MEDS ORDERED: Isovue-370 500 ML BOTTLE IVP ONE (21:03)
[2021-07-04] MEDS ORDERED: Morphine Sulfate 2 MG/ML SYRINGE IVP ONE (21:04)
[2021-07-04] MEDS ORDERED: Ondansetron 4 MG/2 ML VIAL IVP ONE (21:04)
[2021-07-04 21:09] LABS: Basophils % 0.4 %; Eosinophils # 0.1 K/mcL (0.0-0.6); Eosinophils % 1.6 %; Hematocrit 44.1 % (37.5-50.1); Hemoglobin 15.1 g/dL (12.9-16.9); Immature Granulocytes % 0.3 % (0-4); Lymphocytes # 0.9 K/mcL (0.6-4.6); Lymphocytes % 13.6 %; Mean Corpuscular HGB Conc 34.2 g/dL (31.6-35.5); Mean Corpuscular Hemoglobin 28.4 pg (28.0-33.3); Mean Corpuscular Volume 82.9 fL (83.0-100.0); Mean Platelet Volume 11.2 fL (9.4-12.4); Monocytes # 0.6 K/mcL (0.0-1.3); Monocytes % 8.4 %; Neutrophils # 5.1 K/mcL (1.6-8.9); Platelet Count 245 K/mcL (140-400); Red Blood Count 5.32 M/mcL (4.19-5.50); Red Cell Distribution Width 12.9 % (11.5-14.5); Segmented Neutrophils % 75.7 %; White Blood Count 6.8 K/mcL (4.3-11.1)
[2021-07-04 21:12] LABS: Bacteria,Urine Few per hpf (None-Few); Bilirubin,Urine Negative (Negative); Blood,Urine Negative (Negative); Clarity,Urine Clear (Clear); Color,Urine Light-Yellow (Yellow); Glucose,Urine (UA) >=1000 mg/dL (Normal); Ketones,Urine Negative (Negative); Leukocyte Esterase,Urine Negative (Negative); Nitrite,Urine Negative (Negative); Protein,Urine Negative (Neg-Trace); Specific Gravity,Urine > 1.030 (1.010-1.025); Urobilinogen,Urine Normal (Normal); WBC,Urine 0-3 per hpf (0-3)
[2021-07-04 21:33] LABS: Alanine Aminotransferase 109 Units/L (7-52); Albumin 4.9 g/dL (3.5-5.7); Alkaline Phosphatase 116 Units/L (34-104); Aspartate Amino Transferase 62 Units/L (13-39); Bilirubin,Direct 0.2 mg/dL (0.0-0.2); Bilirubin,Indirect 0.4 mg/dL (0.0-1.0); Bilirubin,Total 0.6 mg/dL (0.3-1.0); Blood Urea Nitrogen 18 mg/dL (6-20); Calcium 10.1 mg/dL (8.6-10.3); Carbon Dioxide 20 mEq/L (23-29); Chloride 96 mEq/L (98-107); Globulin 2.5 g/dL (2.4-3.5); Glucose 513 mg/dL (70-105); Lipase 25 Units/L (11-82); Osmolality,Calculated 287 (280-300); Sodium 126 mEq/L (136-145); Total Protein 7.4 g/dL (6.4-8.9)
[2021-07-04] MEDS ORDERED: Insulin LISPRO 300 UNITS/3 ML VIAL SUBQ ONE (21:33)
[2021-07-04 22:00] LABS: BUN/Creatinine Ratio 13 (6-26); eGFR For African Americans > 60 (> 60); eGFR For Non-African Americans 54 (> 60)
[2021-07-04] MEDS ORDERED: Tetracaine/Benzocaine/Butamben 1 SPRAY AEROSOL MM ONE (23:13)
[2021-07-04] MEDS ORDERED: *HR* LORazepam 2 MG/ML VIAL IVP ONE (23:13)
[2021-07-04 23:55] LABS: VBG HCO3 22 mEq/L (21-27); VBG PCO2 45 mmHg (41-51); VBG PH 7.29 pH Units (7.32-7.42); VBG PO2 50 mmHg (25-50)
[2021-07-05] MEDS ORDERED: Naloxone 0.4 MG/ML INJ IVP PRN (00:23)
[2021-07-05] MEDS ORDERED: Morphine Sulfate 2 MG/ML SYRINGE IVP ONE (00:25)
[2021-07-05] MEDS ORDERED: *HR* Dextrose 50 % in Water (Syg) 50 ML SYRINGE IVP PRN (00:26)
[2021-07-05] MEDS ORDERED: Dextrose 4 GM Chewable Tablets PO PRN ×2 (00:26)
[2021-07-05] MEDS ORDERED: D5% in Water 1,000 ML IVC PRN (00:26)
[2021-07-05] MEDS ORDERED: Ipratropium/Albuterol Neb 3 ML IH PRN (00:27)
[2021-07-05] MEDS: 0.9 % Sodium Chloride 1,000 ML IVC SCH ×2 (01:22→17:16)
[2021-07-05 01:34] LABS: Basophils % 0.6 %; Eosinophils # 0.1 K/mcL (0.0-0.6); Eosinophils % 1.5 %; Hematocrit 40.6 % (37.5-50.1); Hemoglobin 14.4 g/dL (12.9-16.9); Immature Granulocytes % 0.3 % (0-4); Lymphocytes # 0.4 K/mcL (0.6-4.6); Lymphocytes % 11.8 %; Mean Corpuscular HGB Conc 35.5 g/dL (31.6-35.5); Mean Corpuscular Hemoglobin 29.4 pg (28.0-33.3); Mean Corpuscular Volume 82.9 fL (83.0-100.0); Mean Platelet Volume 11.1 fL (9.4-12.4); Monocytes # 0.3 K/mcL (0.0-1.3); Monocytes % 7.4 %; Neutrophils # 2.7 K/mcL (1.6-8.9); Platelet Count 213 K/mcL (140-400); Red Cell Distribution Width 12.8 % (11.5-14.5); Segmented Neutrophils % 78.4 %; White Blood Count 3.4 K/mcL (4.3-11.1)
[2021-07-05 01:43] LABS: Prothrombin Time 11.4 Seconds (9.4-12.1)
[2021-07-05] MEDS ORDERED: Morphine Sulfate 2 MG/ML SYRINGE IVP PRN (03:00)
[2021-07-05 04:06] LABS: Alanine Aminotransferase 139 Units/L (7-52); Albumin 4.3 g/dL (3.5-5.7); Albumin/Globulin Ratio 1.7 (1.1-2.2); Alkaline Phosphatase 113 Units/L (34-104); Aspartate Amino Transferase 112 Units/L (13-39); BUN/Creatinine Ratio 13 (6-26); Bilirubin,Direct 0.7 mg/dL (0.0-0.2); Bilirubin,Indirect 0.6 mg/dL (0.0-1.0); Bilirubin,Total 1.3 mg/dL (0.3-1.0); Blood Urea Nitrogen 16 mg/dL (6-20); Calcium 10.1 mg/dL (8.6-10.3); Carbon Dioxide 21 mEq/L (23-29); Chloride 98 mEq/L (98-107); Globulin 2.6 g/dL (2.4-3.5); Glucose 347 mg/dL (70-105); Magnesium 1.4 mg/dL (1.6-2.6); Osmolality,Calculated 283 (280-300); Sodium 129 mEq/L (136-145); Total Protein 6.9 g/dL (6.4-8.9); eGFR For African Americans > 60 (> 60); eGFR For Non-African Americans > 60 (> 60)
[2021-07-05] MEDS ORDERED: Magnesium Sulfate 1 GM/102 ML PIGGYBACK IVPB ONE (06:28)
[2021-07-05] MEDS ORDERED: Insulin LISPRO 300 UNITS/3 ML VIAL SUBQ SCH (07:30)
[2021-07-05 07:36] LABS: Estimated Average Glucose 283 mg/dl; Hemoglobin A1C 11.5 %
[2021-07-05] MEDS ORDERED: 0.9 % Sodium Chloride 1,000 ML IVC SCH (07:45)
[2021-07-05] MEDS: Insulin DETEMIR 100 UNIT/ML X5UNITS SUBQ SCH ×2 (08:20→19:59)
[2021-07-05] MEDS: Insulin LISPRO 300 UNITS/3 ML VIAL SUBQ SCH ×4 (08:24→19:58)
[2021-07-05] MEDS: Morphine Sulfate 2 MG/ML SYRINGE IVP PRN (11:48)
[2021-07-05] MEDS: Acetaminophen IV 1,000 MG/100 ML BAG IVPB SCH ×3 (13:12→23:49)
[2021-07-06] MEDS: Insulin LISPRO 300 UNITS/3 ML VIAL SUBQ SCH ×7 (01:01→23:52)
[2021-07-06] MEDS: Ondansetron 4 MG/2 ML VIAL IVP PRN ×3 (03:48→23:59)
[2021-07-06] MEDS: Acetaminophen IV 1,000 MG/100 ML BAG IVPB SCH ×4 (04:57→23:51)
[2021-07-06 06:02] LABS: Hemoglobin 14.8 g/dL (12.9-16.9)
[2021-07-06 06:03] LABS: Hematocrit 43.3 % (37.5-50.1); Mean Corpuscular HGB Conc 34.2 g/dL (31.6-35.5); Mean Corpuscular Hemoglobin 28.3 pg (28.0-33.3); Mean Corpuscular Volume 82.8 fL (83.0-100.0); Mean Platelet Volume 11.8 fL (9.4-12.4); Platelet Count 168 K/mcL (140-400); Red Blood Count 5.23 M/mcL (4.19-5.50); White Blood Count 1.3 K/mcL (4.3-11.1)
[2021-07-06 06:22] LABS: Albumin/Globulin Ratio 1.7 (1.1-2.2); Bilirubin,Direct 1.1 mg/dL (0.0-0.2); Bilirubin,Indirect 1.1 mg/dL (0.0-1.0); Bilirubin,Total 2.2 mg/dL (0.3-1.0); Calcium 8.5 mg/dL (8.6-10.3); Globulin 2.4 g/dL (2.4-3.5); Potassium 3.7 mEq/L (3.5-5.1); Total Protein 6.4 g/dL (6.4-8.9)
[2021-07-06 06:23] LABS: Magnesium 1.7 mg/dL (1.6-2.6); Phosphorous 3.5 mg/dL (2.7-4.5)
[2021-07-06] MEDS: Morphine Sulfate 2 MG/ML SYRINGE IVP PRN ×2 (08:05→20:35)
[2021-07-06] MEDS: Insulin DETEMIR 100 UNIT/ML X5UNITS SUBQ SCH ×2 (09:05→20:52)
[2021-07-06] MEDS: 0.9 % Sodium Chloride 1,000 ML IVC SCH ×2 (10:41→20:40)
[2021-07-06] MEDS ORDERED: Melatonin 3 MG TABLET PO ONE (20:26)
[2021-07-07 01:31] LABS: Basophils % 1.2 %; Eosinophils # 0.1 K/mcL (0.0-0.6); Eosinophils % 1.5 %; Hematocrit 44.5 % (37.5-50.1); Hemoglobin 15.8 g/dL (12.9-16.9); Immature Granulocytes % 0.3 % (0-4); Lymphocytes # 0.7 K/mcL (0.6-4.6); Lymphocytes % 22.8 %; Mean Corpuscular HGB Conc 35.5 g/dL (31.6-35.5); Mean Corpuscular Hemoglobin 29.2 pg (28.0-33.3); Mean Corpuscular Volume 82.3 fL (83.0-100.0); Mean Platelet Volume 11.7 fL (9.4-12.4); Monocytes # 0.7 K/mcL (0.0-1.3); Monocytes % 21.9 %; Neutrophils # 1.7 K/mcL (1.6-8.9); Platelet Count 223 K/mcL (140-400); Red Blood Count 5.41 M/mcL (4.19-5.50); Red Cell Distribution Width 13.1 % (11.5-14.5); Segmented Neutrophils % 52.3 %
[2021-07-07 01:32] LABS: White Blood Count 3.2 K/mcL (4.3-11.1)
[2021-07-07 01:49] LABS: Albumin 4.1 g/dL (3.5-5.7); Albumin/Globulin Ratio 1.3 (1.1-2.2); Bilirubin,Total 1.3 mg/dL (0.3-1.0); Calcium 9.2 mg/dL (8.6-10.3); Globulin 3.1 g/dL (2.4-3.5); Potassium 3.7 mEq/L (3.5-5.1); Total Protein 7.2 g/dL (6.4-8.9)
[2021-07-07 02:01] LABS: Platelet Estimate Normal (Normal)
[2021-07-07] MEDS: Insulin LISPRO 300 UNITS/3 ML VIAL SUBQ SCH ×4 (04:09→18:17)
[2021-07-07] MEDS: 0.9 % Sodium Chloride 1,000 ML IVC SCH ×3 (04:49→19:55)
[2021-07-07] MEDS: Acetaminophen IV 1,000 MG/100 ML BAG IVPB SCH (04:49)
[2021-07-07] MEDS ORDERED: 0.9 % Sodium Chloride 1,000 ML IVC ONE ×2 (07:29→16:47)
[2021-07-07] MEDS: Insulin DETEMIR 100 UNIT/ML X5UNITS SUBQ SCH ×2 (09:58→19:56)
[2021-07-07] MEDS: Pantoprazole 40 MG VIAL IVP SCH (17:17)
[2021-07-07] MEDS: *HR* LORazepam 2 MG/ML VIAL IVP PRN (17:17)
[2021-07-07] MEDS: Budesonide/Formoterol 160/4.5 1 PUFF INH IH SCH (20:21)
[2021-07-08] MEDS: *HR* LORazepam 2 MG/ML VIAL IVP PRN (01:30)
[2021-07-08] MEDS: Pantoprazole 40 MG VIAL IVP SCH ×2 (05:28→18:33)
[2021-07-08 05:39] LABS: Basophils % 0.6 %; Eosinophils # 0.1 K/mcL (0.0-0.6); Eosinophils % 2.9 %; Hemoglobin 12.9 g/dL (12.9-16.9); Immature Granulocytes % 0.9 % (0-4); Lymphocytes % 28.9 %; Mean Corpuscular HGB Conc 34.9 g/dL (31.6-35.5); Mean Corpuscular Hemoglobin 28.4 pg (28.0-33.3); Mean Corpuscular Volume 81.3 fL (83.0-100.0); Mean Platelet Volume 11.8 fL (9.4-12.4); Monocytes # 0.6 K/mcL (0.0-1.3); Monocytes % 16.7 %; Neutrophils # 1.7 K/mcL (1.6-8.9); Platelet Count 224 K/mcL (140-400); Red Blood Count 4.55 M/mcL (4.19-5.50); Red Cell Distribution Width 13.1 % (11.5-14.5); White Blood Count 3.4 K/mcL (4.3-11.1)
[2021-07-08 06:16] LABS: Alanine Aminotransferase 77 Units/L (7-52); Albumin 3.4 g/dL (3.5-5.7); Albumin/Globulin Ratio 1.4 (1.1-2.2); Alkaline Phosphatase 82 Units/L (34-104); Aspartate Amino Transferase 13 Units/L (13-39); BUN/Creatinine Ratio 28 (6-26); Bilirubin,Total 0.7 mg/dL (0.3-1.0); Blood Urea Nitrogen 37 mg/dL (6-20); Calcium 8.2 mg/dL (8.6-10.3); Carbon Dioxide 23 mEq/L (23-29); Chloride 99 mEq/L (98-107); Globulin 2.5 g/dL (2.4-3.5); Glucose 148 mg/dL (70-105); Osmolality,Calculated 285 (280-300); Potassium 2.7 mEq/L (3.5-5.1); Sodium 132 mEq/L (136-145); Total Protein 5.9 g/dL (6.4-8.9); eGFR For African Americans > 60 (> 60); eGFR For Non-African Americans 57 (> 60)
[2021-07-08] MEDS ORDERED: Tiotropium 10 INH DOSE IH ONE (08:07)
[2021-07-08] MEDS: Budesonide/Formoterol 160/4.5 1 PUFF INH IH SCH ×2 (08:10→20:39)
[2021-07-08] MEDS: Tiotropium 10 INH DOSE IH SCH (08:10)
[2021-07-08] MEDS: Insulin LISPRO 300 UNITS/3 ML VIAL SUBQ SCH ×4 (08:14→18:34)
[2021-07-08] MEDS: Ondansetron 4 MG/2 ML VIAL IVP PRN (08:26)
[2021-07-08] MEDS: Insulin DETEMIR 100 UNIT/ML X5UNITS SUBQ SCH ×2 (08:28→21:02)
[2021-07-08] MEDS: 0.9 % Sodium Chloride 1,000 ML IVC SCH ×2 (08:41→18:33)
[2021-07-08] MEDS ORDERED: Tetracaine/Benzocaine/Butamben 1 SPRAY AEROSOL MM ONE (10:51)
[2021-07-08 18:30] LABS: BUN/Creatinine Ratio 27 (6-26); Blood Urea Nitrogen 28 mg/dL (6-20); Calcium 8.5 mg/dL (8.6-10.3); Carbon Dioxide 24 mEq/L (23-29); Chloride 102 mEq/L (98-107); Glucose 129 mg/dL (70-105); Osmolality,Calculated 289 (280-300); Potassium 3.1 mEq/L (3.5-5.1); Sodium 136 mEq/L (136-145); eGFR For African Americans > 60 (> 60); eGFR For Non-African Americans > 60 (> 60)
[2021-07-08 20:48] VITALS: O2SAT 95
[2021-07-08] MEDS ORDERED: traZODone 50 MG TABLET PO PRN (20:58)
[2021-07-09] MEDS: Insulin LISPRO 300 UNITS/3 ML VIAL SUBQ SCH ×3 (00:43→12:17)
[2021-07-09] MEDS: 0.9 % Sodium Chloride 1,000 ML IVC SCH (05:59)
[2021-07-09] MEDS: Pantoprazole 40 MG VIAL IVP SCH (05:59)
[2021-07-09 06:05] LABS: Basophils # 0.1 K/mcL (0.0-0.2); Basophils % 1.4 %; Eosinophils # 0.2 K/mcL (0.0-0.6); Eosinophils % 3.5 %; Hematocrit 36.7 % (37.5-50.1); Hemoglobin 12.6 g/dL (12.9-16.9); Immature Granulocytes % 3.7 % (0-4); Lymphocytes # 1.2 K/mcL (0.6-4.6); Lymphocytes % 27.4 %; Mean Corpuscular HGB Conc 34.3 g/dL (31.6-35.5); Mean Corpuscular Hemoglobin 28.8 pg (28.0-33.3); Mean Corpuscular Volume 83.8 fL (83.0-100.0); Mean Platelet Volume 11.4 fL (9.4-12.4); Monocytes % 17.3 %; Platelet Count 220 K/mcL (140-400); Red Blood Count 4.38 M/mcL (4.19-5.50); Segmented Neutrophils % 46.7 %; White Blood Count 4.3 K/mcL (4.3-11.1)
[2021-07-09 06:19] LABS: Monocytes # 0.7 K/mcL (0.0-1.3)
[2021-07-09 06:32] LABS: Platelet Estimate Normal (Normal)
[2021-07-09 08:12] VITALS: BP 146/96; PULSE 84; TEMP 97.4
[2021-07-09] MEDS: Budesonide/Formoterol 160/4.5 1 PUFF INH IH SCH (08:18)
[2021-07-09] MEDS: Tiotropium 10 INH DOSE IH SCH (08:18)
[2021-07-09 08:53] LABS: Alanine Aminotransferase 48 Units/L (7-52); Albumin 3.4 g/dL (3.5-5.7); Albumin/Globulin Ratio 1.5 (1.1-2.2); Alkaline Phosphatase 73 Units/L (34-104); Aspartate Amino Transferase 16 Units/L (13-39); BUN/Creatinine Ratio 25 (6-26); Bilirubin,Total 0.6 mg/dL (0.3-1.0); Blood Urea Nitrogen 25 mg/dL (6-20); Calcium 8.4 mg/dL (8.6-10.3); Carbon Dioxide 18 mEq/L (23-29); Chloride 104 mEq/L (98-107); Globulin 2.3 g/dL (2.4-3.5); Glucose 115 mg/dL (70-105); Magnesium 1.8 mg/dL (1.6-2.6); Osmolality,Calculated 287 (280-300); Potassium 3.3 mEq/L (3.5-5.1); Sodium 136 mEq/L (136-145); Total Protein 5.7 g/dL (6.4-8.9); eGFR For African Americans > 60 (> 60); eGFR For Non-African Americans > 60 (> 60)
[2021-07-09] MEDS: Insulin DETEMIR 100 UNIT/ML X5UNITS SUBQ SCH (09:25)
[2021-07-09] MEDS ORDERED: Potassium Chloride Elixir 20 MEQ/15 ML UDC PO ONE (11:51)
== END 2021-07-09 15:06 | disposition left against medical advice (07) | DRG 389 ==
LOC: EMEROOARM 20:20 → 3ANU 20:20 → SUATTDRO 07-05 12:10
PROVIDERS: ADMIT Internal Medicine; ATTEND Internal Medicine